=== PATIENT | male | born 1950 | race Caucasian/White ===

== ENCOUNTER 2017-02-15 12:37 | Emergency (ER) | payer MEDICARE, MEDICAID ==
[2017-02-15 15:18] VITALS: BP 167/84
--- NOTE | 2017-02-15 15:18 | ER Document Report ---
ED General - General Chief Complaint: Diarrhea Stated Complaint: COLD SYMPTOMS Time Seen by Provider: 02/15/17 15:10 Mode of Arrival: Ambulatory Information source: Patient Notes: 66-year-old male presents with complaints of left ear pain decreased hearing sore throat intermittent productive cough and diarrhea. Patient denies any fevers or chills admits to nausea vomiting. TRAVEL OUTSIDE OF THE [place] IN LAST 30 DAYS: No - HPI Onset: Other - 2-3 day duration Onset/Duration: Persistent Quality of pain: Achy Severity: Mild Pain Level: 1 Associated symptoms: Diarrhea, Earache Exacerbated by: Denies Relieved by: Denies Similar symptoms previously: No Recently seen / treated by doctor: No - Related Data Allergies/Adverse Reactions: No Known Allergies Allergy (Verified 02/15/17 12:39) Past Medical History - Social History Smoking Status: Current Every Day Smoker Cigarette use (# per day): Yes Chew tobacco use (# tins/day): No Smoking Education Provided: No Frequency of alcohol use: Occasional Drug Abuse: Marijuana Family History: Reviewed & Not Pertinent, Arthritis, DM, Hyperlipidemia Patient has suicidal ideation: No Patient has homicidal ideation: No - Past Medical History Cardiac Medical History: Reports: Hx Hypertension Pulmonary Medical History: Reports: Hx COPD, Hx Pneumonia Neurological Medical History: Reports: 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 Denies: Hx Pancreatitis Musculoskeltal Medical History: Reports Hx Arthritis, Reports Hx Musculoskeletal Deformity Psychiatric Medical History: Reports: Hx Depression Traumatic Medical History: Infectious Medical History: Past Surgical History: Reports: Hx Abdominal Surgery - Right hemicolectomy with ileostomy, Hx Bowel Surgery - hernia repair, Hx Colostomy - ileostomy from hernia around colon 1 yr ago, Hx Herniorrhaphy, Hx Ileostomy - Ileostomy was taken down in May 2012., Hx Orthopedic Surgery - Spinal fusion - Immunizations Immunizations up to date: Yes Hx Diphtheria, Pertussis, Tetanus Vaccination: Yes Hx Pneumococcal Vaccination: 11/11/12 Review of Systems - Review of Systems Notes: REVIEW OF SYSTEMS: CONSTITUTIONAL : Denies fever, chills, or sweats. Denies recent illness. EENT: Admits to left ear pain CARDIOVASCULAR: Denies chest pain. Denies palpitations or racing or irregular heart beat. Denies ankle edema. RESPIRATORY: Admits to cough productive GASTROINTESTINAL: Admits to nausea vomiting diarrhea GENITOURINARY: Denies difficulty urinating, painful urination, burning, frequency, blood in urine, or discharge. MUSCULOSKELETAL: Denies back or neck pain or stiffness. Denies joint pain or swelling. SKIN: Denies rash, lesions or sores. HEMATOLOGIC : Denies easy bruising or bleeding. LYMPHATIC: Denies swollen, enlarged glands. NEUROLOGICAL: Denies confusion or altered mental status. Denies passing out or loss of consciousness. Denies dizziness or lightheadedness. Denies headache. Denies weakness or paralysis or loss of use of either side. Denies problems with gait or speech. Denies sensory loss, numbness, or tingling. Denies seizures. PSYCHIATRIC: Denies anxiety or stress. Denies depression, suicidal ideation, or homicidal ideation. ALL OTHER SYSTEMS REVIEWED AND NEGATIVE. Dictation was performed using [employer] voice recognition software PHYSICAL EXAMINATION: GENERAL: Well-appearing, well-nourished and in no acute distress. HEAD: Atraumatic, normocephalic. EYES: Pupils equal round and reactive to light, extraocular movements intact, sclera anicteric, conjunctiva are normal. ENT: Right TM is well. Left TM is noted to be very erythematous there is loss of light reflex NECK: Normal range of motion, supple without lymphadenopathy LUNGS: Breath sounds clear to auscultation bilaterally and equal. No wheezes rales or rhonchi. HEART: Regular rate and rhythm without murmurs ABDOMEN: Soft, nontender, nondistended abdomen. No guarding, no rebound. No masses appreciated. Musculoskeletal: Normal range of motion, no pitting or edema. No cyanosis. NEUROLOGICAL: Cranial nerves grossly intact. Normal speech, normal gait. Normal sensory, motor exams PSYCH: Normal mood, normal affect. SKIN: Warm, Dry, normal turgor, no rashes or lesions noted. Physical Exam - Vital signs Vitals: Temp Pulse Resp BP Pulse Ox 98.1 F 102 H 20 147/86 H 99 02/15/17 12:46 02/15/17 12:46 02/15/17 12:46 02/15/17 12:46 02/15/17 12:46 Course - Re-evaluation Re-evalutation: 02/15/17 21:12 Patient's presentation is concerning for otitis media, I will treat him with azithromycin since he believes he has a productive cough as well, he overall actually looks quite well, patient will be given very strict return precautions and is otherwise stable for discharge. After performing a Medical Screening Examination, I estimate there is LOW risk for ACUTE CORONARY SYNDROME, PULMONARY EMBOLI, RESPIRATORY FAILURE, SEPSIS OR MENINGITIS, thus I consider the discharge disposition reasonable. I have reevaluated this patient multiple times and no significant life threatening changes are noted. The patient and I have discussed the diagnosis and risks, and we agree with discharging home with close follow-up. We also discussed returning to the Emergency Department immediately if new or worsening symptoms occur. We have discussed the symptoms which are most concerning (e.g., changing or worsening pain, trouble swallowing or breathing, neck stiffness, fever) that necessitate immediate return. - Vital Signs Vital signs: Temp Pulse Resp BP Pulse Ox 97.5 F 106 H 20 167/84 H 98 02/15/17 15:18 02/15/17 15:18 02/15/17 15:18 02/15/17 15:18 02/15/17 15:18 Discharge - Discharge Clinical Impression: Nausea & vomiting Qualifiers: Vomiting type: unspecified Vomiting Intractability: non-intractable Qualified Code(s): R11.2 - Nausea with vomiting, unspecified Otitis media Qualifiers: Otitis media type: unspecified Chronicity: acute Qualified Code(s): H66.90 - Otitis media, unspecified, unspecified ear Diarrhea Qualifiers: Diarrhea type: unspecified type Qualified Code(s): R19.7 - Diarrhea, unspecified Condition: Stable Disposition: HOME, SELF-CARE Instructions: Otitis Media ([facility]), Vomiting ([facility]) Additional Instructions: Follow up with your physician tomorrow for further care or return to the ED IMMEDIATELY if symptoms worsen or new concerns occur. If you cannot afford to follow up with your primary care physician a list of low cost clinics have been provided at the end of your discharge papers as well. Prescriptions: Azithromycin [Zithromax 250 mg Tablet] 250 mg PO ASDIR PRN #6 tablet PRN Reason:
== END 2017-02-15 15:22 | disposition home or self-care (01) ==
LOC: ER 12:37
DX: H66.90 Otitis media, unspecified, unspecified ear (principal); R11.2 Nausea with vomiting, unspecified; R19.7 Diarrhea, unspecified; H92.02 Otalgia, left ear; J02.9 Acute pharyngitis, unspecified; R05 Cough; F17.210 Nicotine dependence, cigarettes, uncomplicated
CPT/HCPCS: 99284

== ENCOUNTER 2017-02-27 19:38 | Inpatient (IN) | payer MEDICARE, MEDICAID ==
[2017-02-27] MEDS ORDERED: ONDANSETRON 4 MG TAB.RAPDIS PO ONE (21:06)
[2017-02-27] MEDS ORDERED: NORMAL SALINE 1000 ML 1,000 ML IV ONE (21:06)
--- NOTE | 2017-02-27 21:08 | ER Document Report ---
ED Medical Screen (RME) - General Chief Complaint: Nausea/Vomiting Stated Complaint: NAUSEA/VOMITING Time Seen by Provider: 02/27/17 21:06 Mode of Arrival: Wheelchair Information source: Patient Notes: Patient is a 66-year-old male who presents to the ER today for 2 days of nausea , vomiting, diarrhea and abdominal pain in the middle of his abdomen. Patient denies any fever, chills or sweats at home. Patient does not have a history of this. Patient denies any blood in his vomit or diarrhea. TRAVEL OUTSIDE OF THE [place] IN LAST 30 DAYS: No - Related Data Allergies/Adverse Reactions: No Known Allergies Allergy (Verified 02/27/17 20:52) Past Medical History - General Information source: Patient - Social History Chew tobacco use (# tins/day): No Frequency of alcohol use: Heavy Drug Abuse: None - Past Medical History Cardiac Medical History: Reports: Hx Hypertension Pulmonary Medical History: Reports: Hx COPD, Hx Pneumonia Neurological Medical History: Reports: Hx Cerebrovascular Accident - 2009 left arm hemiparesis Renal/ Medical History: Denies: Hx Peritoneal Dialysis Malignancy Medical History: GI Medical History: Reports: Hx Colonoscopy. Denies: Hx Pancreatitis Musculoskeltal Medical History: Reports Hx Arthritis, Reports Hx Musculoskeletal Deformity Psychiatric Medical History: Reports: Hx Depression Traumatic Medical History: Infectious Medical History: Past Surgical History: Reports: Hx Abdominal Surgery - Right hemicolectomy with ileostomy, Hx Bowel Surgery - hernia repair, Hx Colostomy - ileostomy from hernia around colon 1 yr ago, Hx Herniorrhaphy, Hx Ileostomy - Ileostomy was taken down in May 2012., Hx Orthopedic Surgery - Spinal fusion - Immunizations Immunizations up to date: Yes Hx Diphtheria, Pertussis, Tetanus Vaccination: Yes Review of Systems - Review of Systems Gastrointestinal: See HPI Physical Exam - Vital signs Vitals: Temp Pulse Resp BP Pulse Ox 98.7 F 92 20 187/86 H 98 02/27/17 19:45 02/27/17 19:45 02/27/17 19:45 02/27/17 19:45 02/27/17 19:45 - Notes Notes: General: NAD, holding emesis bag Abd: mild tenderness periumbilical Course - Vital Signs Vital signs: Temp Pulse Resp BP Pulse Ox 98.7 F 92 20 187/86 H 98 02/27/17 19:45 02/27/17 19:45 02/27/17 19:45 02/27/17 19:45 02/27/17 19:45
--- NOTE | 2017-02-27 22:44 | ER Document Report ---
ED GI/ - General Chief Complaint: Nausea/Vomiting Stated Complaint: NAUSEA/VOMITING Time Seen by Provider: 02/27/17 21:06 Mode of Arrival: Wheelchair TRAVEL OUTSIDE OF THE [place] IN LAST 30 DAYS: No - HPI Notes: 02/27/17 22:42 66-year-old male with history of alcohol abuse, hyponatremia, prior partial colectomy with colostomy and reversal with hernia repair, presents with vomiting and diarrhea for 2 days. Initially had nausea and diarrhea and developed some vomiting today. He has had a few episodes. The diarrhea has been more constant watery without blood or mucus. He has generalized abdominal cramping more in the mid abdominal region. It is nonradiating otherwise. Denies hematemesis. Denies fever. No new cough or cold symptoms rhinorrhea or sore throat. - Related Data Allergies/Adverse Reactions: No Known Allergies Allergy (Verified 02/27/17 20:52) Past Medical History - General Information source: Patient - Social History Smoking Status: Current Every Day Smoker Chew tobacco use (# tins/day): No Frequency of alcohol use: Heavy Drug Abuse: None Family History: Reviewed & Not Pertinent, Arthritis, DM, Hyperlipidemia Patient has suicidal ideation: No Patient has homicidal ideation: No - Past Medical History Cardiac Medical History: Reports: Hx Hypertension Pulmonary Medical History: Reports: Hx COPD, Hx Pneumonia Neurological Medical History: Reports: 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 Denies: Hx Pancreatitis Musculoskeltal Medical History: Reports Hx Arthritis, Reports Hx Musculoskeletal Deformity Psychiatric Medical History: Reports: Hx Depression Traumatic Medical History: Infectious Medical History: Past Surgical History: Reports: Hx Abdominal Surgery - Right hemicolectomy with ileostomy, Hx Bowel Surgery - hernia repair, Hx Colostomy - ileostomy from hernia around colon 1 yr ago, Hx Herniorrhaphy, Hx Ileostomy - Ileostomy was taken down in May 2012., Hx Orthopedic Surgery - Spinal fusion - Immunizations Immunizations up to date: Yes Hx Diphtheria, Pertussis, Tetanus Vaccination: Yes Hx Pneumococcal Vaccination: 11/11/12 Review of Systems - Review of Systems -: Yes All other systems reviewed and negative Physical Exam - Vital signs Vitals: Temp Pulse Resp BP Pulse Ox 98.7 F 92 20 187/86 H 98 02/27/17 19:45 02/27/17 19:45 02/27/17 19:45 02/27/17 19:45 02/27/17 19:45 Interpretation: Hypertensive - Notes Notes: GENERAL: VS as per nursing doc. Well-appearing, well-nourished and in no acute distress. HEAD: Atraumatic, normocephalic. EYES: Pupils equal round and reactive to light, extraocular movements intact, sclera anicteric, no conjunctival injection or discharge. ENT: Nares patent, oropharynx clear without exudates, moist mucous membranes. NECK: Normal range of motion, supple without lymphadenopathy. LUNGS: Breath sounds clear to auscultation bilaterally and equal but coarse. No wheezes rales or rhonchi. HEART: Regular rate and rhythm without murmurs. ABDOMEN: Soft, mild generalized abdominal tenderness, really not focal. Hyperactive bowel sounds. No guarding, no rebound. No masses appreciated. No Otwell sign. BACK: No CVA tenderness. EXTREMITIES: Normal range of motion, no calf tenderness, no edema. NEUROLOGICAL: Cranial nerves grossly intact. Normal speech. Normal sensory and motor exams. No gross cerebellar abnormalities. PSYCH: Normal mood, normal affect. SKIN: Warm, dry, normal turgor, no lesions noted. Course - Re-evaluation Re-evalutation: 02/28/17 00:16 Patient does have a history of hyponatremia. The sodium of 116 today is much decreased compared to August where it was 131. He does drink significant amounts of beer. 02/28/17 00:43 Nausea is better. Patient is awaiting CT scan. 02/28/17 04:36 After normal saline 1 L, there was no increase in his sodium level. Dr. Cheung requested 3% normal saline. - Vital Signs Vital signs: Temp Pulse Resp BP Pulse Ox 98.7 F 92 11 L 138/87 H 97 02/27/17 19:45 02/27/17 19:45 02/28/17 04:00 02/28/17 03:56 02/28/17 04:00 - Laboratory Result Diagrams: 02/28/17 03:50 02/28/17 03:50 Laboratory results interpreted by me: 02/27/17 02/27/17 02/27/17 22:50 22:50 22:50 WBC 13.3 H RBC 4.21 L Hgb 13.4 L Plt Count 530 H Monocytes % 14.8 H Eosinophils % 8.0 H Basophils % 2.4 H Absolute Monocytes 2.0 H Absolute Eosinophils 1.1 H Absolute Basophils 0.3 H Sodium 116.7 L* Chloride 77 L BUN 5 L Serum Osmolality 239 L AST 116 H ALT 87 H Alkaline Phosphatase 141 H Total Protein 9.5 H Albumin 5.3 H Urine Ketones 02/27/17 23:12 WBC RBC Hgb Plt Count Monocytes % Eosinophils % Basophils % Absolute Monocytes Absolute Eosinophils Absolute Basophils Sodium Chloride BUN Serum Osmolality AST ALT Alkaline Phosphatase Total Protein Albumin Urine Ketones 20 H - Consults Dr. Cheung Time consulted: 00:44 - Admission pending CT Consulted provider: will come to ER Discharge - Discharge Clinical Impression: Hyponatremia, Abdominal pain, Vomiting Condition: Fair Disposition: ADMITTED INPATIENT Admitting Provider: Dr. Cheung Unit Admitted: ICU
[2017-02-27 23:13] LABS: ABSOLUTE BASOPHILS # (AUTO) 0.3 10^3/uL (0.0-0.2); ABSOLUTE EOSINOPHILS # (AUTO) 1.1 10^3/uL (0.0-0.6); ABSOLUTE LYMPHOCYTES (AUTO) 3.2 10^3/uL (0.5-4.7); ABSOLUTE NEUT (AUTO) 6.8 10^3/uL (1.7-8.2); BASOPHILS % (AUTO) 2.4 % (0-2); HEMOGLOBIN 13.4 g/dL (13.5-17.0); LYMPHOCYTES % (AUTO) 23.9 % (13-45); MEAN CORPUSCULAR HEMOGLOBIN 31.9 pg (27.0-33.4); MEAN CORPUSCULAR HGB CONC 34.4 g/dL (32.0-36.0); MEAN CORPUSCULAR VOLUME 93 fl (80-97); MONOCYTES % (AUTO) 14.8 % (3-13); PLATELET COUNT 530 10^3/uL (150-450); RED BLOOD COUNT 4.21 10^6/uL (4.35-5.55); RED CELL DISTRIBUTION WIDTH 13.1 % (11.5-14.0); SEGMENTED NEUTROPHILS % (AUTO) 50.9 % (42-78); TOTAL CELLS COUNTED % (AUTO) 100 %; WHITE BLOOD COUNT 13.3 10^3/uL (4.0-10.5)
[2017-02-27 23:22] LABS: ALANINE AMINOTRANSFERASE 87 U/L (21-72); ALBUMIN 5.3 g/dL (3.5-5.0); ALKALINE PHOSPHATASE 141 U/L (38-126); ANION GAP 14 (5-19); ASPARTATE AMINO TRANSFERASE 116 U/L (17-59); BILIRUBIN,DIRECT 0.4 mg/dL (0.0-0.4); BILIRUBIN,TOTAL 0.8 mg/dL (0.2-1.3); BLOOD UREA NITROGEN 5 mg/dL (7-20); CALCIUM 10.2 mg/dL (8.4-10.2); CARBON DIOXIDE 26 mmol/L (22-30); CHLORIDE 77 mmol/L (98-107); GLUCOSE 80 mg/dL (75-110); LIPASE 143.9 U/L (23-300); POTASSIUM 4.8 mmol/L (3.6-5.0); TOTAL PROTEIN 9.5 g/dL (6.3-8.2)
[2017-02-27] MEDS ORDERED: ONDANSETRON HCL INJ/PF 4 MG/2 ML SDV IV ONE (23:22)
[2017-02-27] MEDS ORDERED: HYDROMORPHONE HCL INJ/PF 2 MG/ML AMPULE IV ONE (23:22)
[2017-02-27 23:25] LABS: SODIUM 116.7 mmol/L (137-145)
[2017-02-27 23:44] LABS: APPEARANCE,URINE SLIGHTLY-CLOUDY; BILIRUBIN,URINE NEGATIVE (NEGATIVE); COLOR,URINE YELLOW; GLUCOSE, URINE NEGATIVE (NEGATIVE); KETONES,URINE 20 mg/dL (NEGATIVE); LEUKOCYTE ESTERASE,URINE NEGATIVE (NEGATIVE); NITRITE,URINE NEGATIVE (NEGATIVE); PROTEIN,URINE NEGATIVE (NEGATIVE); URINE SPECIFIC GRAVITY 1.018; UROBILINOGEN,URINE NEGATIVE mg/dL (<2.0)
[2017-02-27] MEDS ORDERED: SUCCINYLCHOLINE CHLORIDE INJ 200 MG/10 ML VIAL ONE (23:59)
[2017-02-28] MEDS ORDERED: NORMAL SALINE 1000 ML 1,000 ML IV ONE (00:19)
--- NOTE | 2017-02-28 02:21 | RADIOLOGY REPORT (SQ) ---
EXAM DESCRIPTION: CT ABD/PELVIS WITH IV ORAL CLINICAL HISTORY: 66 years Male, Abdominal pain, vomiting and diarrhea COMPARISON: August 05, 2015 TECHNIQUE: No contrast. Coronal and sagittal reformat. This exam was performed according to our departmental dose-optimization program, which includes automated exposure control, adjustment of the mA and/or kV according to patient size and/or use of iterative reconstruction technique. Limitation: Arm positioning. FINDINGS: Mild mesenteric and retroperitoneal lymphadenopathy without suspicious interval change. 4.6 cm diameter prostate. Moderate diffuse rectal and distal sigmoid bowel wall thickening and mild/moderate bowel wall thickening involving a 5 cm segment of the proximal sigmoid., stable. Mild hepatic steatosis. Small colonic diverticulosis. Moderate distended nonopacified distal esophagus and stomach. Moderate disc desiccation Inferior thorax, gallbladder, pancreas, spleen, adrenals, renal system, gastrointestinal tract, pelvic organs, lymphatics, vasculature, and musculoskeleton appear otherwise unremarkable. IMPRESSION: Discontinuous colonic bowel wall thickening and mild-moderate mesenteric/retroperitoneal lymphadenopathy. Differential diagnosis includes infectious, inflammatory, and neoplastic etiologies. No suspicious interval change compared with prior exam, 08/05/2015.
[2017-02-28] MEDS ORDERED: FUROSEMIDE INJ/PF 40 MG/4 ML SDV IV ONE (02:41)
[2017-02-28] MEDS ORDERED: ONDANSETRON HCL INJ/PF 4 MG/2 ML SDV IV PRN (02:42)
[2017-02-28] MEDS ORDERED: THIAMINE HCL 100 MG, FOLIC ACID 1 MG in NORMAL SALINE 250 ML IV ONE (03:00)
[2017-02-28] MEDS ORDERED: MORPHINE SULFATE 10 MG/ML INJ IV ONE (03:45)
[2017-02-28 04:07] LABS: ABSOLUTE BASOPHILS # (AUTO) 0.1 10^3/uL (0.0-0.2); ABSOLUTE EOSINOPHILS # (AUTO) 0.9 10^3/uL (0.0-0.6); ABSOLUTE LYMPHOCYTES (AUTO) 2.7 10^3/uL (0.5-4.7); ABSOLUTE MONOCYTES (AUTO) 1.8 10^3/uL (0.1-1.4); ABSOLUTE NEUT (AUTO) 5.1 10^3/uL (1.7-8.2); BASOPHILS % (AUTO) 1.2 % (0-2); EOSINOPHILS % (AUTO) 8.4 % (0-6); HEMATOCRIT 34.2 % (37.9-51.0); LYMPHOCYTES % (AUTO) 25.1 % (13-45); MEAN CORPUSCULAR HEMOGLOBIN 32.4 pg (27.0-33.4); MEAN CORPUSCULAR VOLUME 93 fl (80-97); MONOCYTES % (AUTO) 17.1 % (3-13); PLATELET COUNT 463 10^3/uL (150-450); RED BLOOD COUNT 3.69 10^6/uL (4.35-5.55); RED CELL DISTRIBUTION WIDTH 13.1 % (11.5-14.0); SEGMENTED NEUTROPHILS % (AUTO) 48.2 % (42-78); TOTAL CELLS COUNTED % (AUTO) 100 %; WHITE BLOOD COUNT 10.5 10^3/uL (4.0-10.5)
[2017-02-28 04:16] LABS: BLOOD UREA NITROGEN 6 mg/dL (7-20); CALCIUM 9.1 mg/dL (8.4-10.2); CARBON DIOXIDE 24 mmol/L (22-30); CHLORIDE 81 mmol/L (98-107); GLUCOSE 76 mg/dL (75-110); POTASSIUM 4.3 mmol/L (3.6-5.0)
[2017-02-28 04:18] LABS: ANION GAP 11 (5-19)
[2017-02-28 04:20] LABS: SODIUM 115.7 mmol/L (137-145)
[2017-02-28] MEDS ORDERED: SODIUM CHLORIDE 3% 150 ML IV ONE (04:35)
[2017-02-28] MEDS ORDERED: FOLIC ACID INJ 5 MG/1 ML 10 ML VIAL ONE (04:47)
[2017-02-28] MEDS ORDERED: THIAMINE HCL INJ 200 MG/2 ML VIAL ONE (04:48)
[2017-02-28] MEDS ORDERED: SODIUM CHLORIDE 3% 500 ML IV ONE (05:06)
[2017-02-28] MEDS: HEPARIN SOD (PORCINE) 5,000 UNIT/ML 1 ML SYRINGE SUBCUT SCH ×3 (05:18→21:25)
[2017-02-28] MEDS ORDERED: METOCLOPRAMIDE HCL ORAL SOLN 10 MG/10 ML UDCUP PO ONE (05:54)
[2017-02-28] MEDS ORDERED: MAG HYDROX/AL HYDROX/SIMETH SUSP 30 ML UDCUP PO ONE (05:54)
[2017-02-28] MEDS ORDERED: LIDOCAINE 2% VISCOUS SOLN 20 ML UDCUP PO ONE (05:54)
[2017-02-28] MEDS ORDERED: PANTOPRAZOLE SODIUM 80 MG in NORMAL SALINE 100 ML IV ONE (06:27)
[2017-02-28] MEDS: NORMAL SALINE 100 ML with PANTOPRAZOLE SODIUM 80 MG IV PRN ×4 (06:30→21:24)
[2017-02-28] MEDS ORDERED: PHARMACY COMMUNICATION ORDER MC NR ×2 (06:30)
[2017-02-28] MEDS ORDERED: NORMAL SALINE 250 ML IV PRN ×2 (06:37)
--- NOTE | 2017-02-28 06:56 | PDOC H&P ---
History of Present Illness Admission Date/PCP: 02/28/17 02:44 Patient complains of: Falls, nausea and vomiting History of Present Illness: YAMILET MEDINA is a 66 year old male with a past medical history of Wernicke's encephalopathy, ataxia, recurrent hyponatremia with beer potomania and COPD. He presents to the emergency room with abdominal pain nausea and vomiting. Workup reveals CT abdomen pelvis with colonic thickening and scattered adenopathy and a Sodium of 116. In the emergency room he receives normal saline bolus and referred to the hospitalist for admission to ICU. He is ordered IV 3% saline and Protonix. During interview patient complains of abdominal pain with distention followed by a large bloody emesis followed by severe wheeze and respiratory distress. Patient verifies full CODE STATUS. Nurse automotive center manager, gastroenterology and surgery are consulted for intubation, endoscopy and IV access. Past Medical History Cardiac Medical History: Reports: Hypertension Pulmonary Medical History: Reports: Chronic Obstructive Pulmonary Disease (COPD) , Pneumonia Malignancy Medical History: GI Medical History: Musculoskeltal Medical History: Reports: Arthritis Psychiatric Medical History: Reports: Depression Hematology: Reports: Anemia Denies: Hemophilia, Sickle Cell Disease Infectious Medical History: Past Surgical History Past Surgical History: Reports: Colostomy - ileostomy from hernia around colon 1 yr ago, Herniorrhaphy, Ileostomy - Ileostomy was taken down in May 2012., Orthopedic Surgery - Spinal fusion Social History Information Source: Patient, [facility] Records Lives with: Family Smoking Status: Current Every Day Smoker Frequency of Alcohol Use: Heavy Hx Recreational Drug Use: No Drugs: None Hx Prescription Drug Abuse: No - Advance Directive Resuscitation Status: Full Code Family History Family History: Reviewed & Not Pertinent, Arthritis, DM, Hyperlipidemia Parental Family History Reviewed: Yes Children Family History Reviewed: Yes Sibling(s) Family History Reviewed.: Yes Medication/Allergy Home Medications: Fluticasone/Salmeterol [Advair 250-50 Diskus 28 dose] 2 inhaler IN BID 08/06/15 Lisinopril 10 mg PO DAILY 08/17/15 Acetaminophen [Tylenol 325 mg Tablet] 325 mg PO Q4HP PRN tablet 08/25/15 Albuterol Sulfate [Ventolin 0.083% Neb 2.5 mg/3 mL Ampul] 2.5 mg NEB RTQ2HP PRN vial.neb 08/25/15 Aspirin [Aspirin 325 mg Tablet] 325 mg PO DAILY tablet 08/25/15 Carvedilol [Coreg 3.125 mg Tablet] 3.125 mg PO Q12 tablet 08/25/15 Diazepam [Valium 5 mg Tablet] 5 mg PO Q12 PRN #15 tablet 08/25/15 Digoxin [Lanoxin 0.25 mg Tablet] 0.25 mg PO DAILY tablet 08/25/15 Docusate Sodium [Colace 100 mg Capsule] 100 mg PO BID capsule 08/25/15 Famotidine [Pepcid 20 mg Tablet] 20 mg PO Q12 tablet 08/25/15 Folic Acid [Folvite 1 mg Tablet] 1 mg PO DAILY tablet 08/25/15 Furosemide [Lasix 20 mg Tablet] 20 mg PO DAILY tablet 08/25/15 Magnesium Oxide [Mag-Ox 400 mg Tablet] 400 mg PO BID tablet 08/25/15 Metformin HCl [Glucophage 500 mg Tablet] 500 mg PO BIDACBS tablet 08/25/15 Prednisone [Deltasone 20 mg Tablet] 40 mg PO DAILY tablet 08/25/15 Thiamine HCl [Thiamine 100 mg Tablet] 100 mg PO DAILY tablet 08/25/15 Azithromycin [Zithromax 250 mg Tablet] 250 mg PO ASDIR PRN #6 tablet 02/15/17 Allergies/Adverse Reactions: No Known Allergies Allergy (Verified 02/27/17 20:52) Review of Systems ROS unobtainable: Due to mental status Physical Exam Vital Signs: Temp Pulse Resp BP Pulse Ox 98.7 F 92 19 123/81 95 02/28/17 05:02 02/27/17 19:45 02/28/17 05:02 02/28/17 05:02 02/28/17 05:02 Intake & Output 02/26/17 02/27/17 02/28/17 11:59 11:59 11:59 Weight 74.389 kg General appearance: PRESENT: disheveled, severe distress Head exam: PRESENT: atraumatic, normocephalic, other - Several lacerations to the scalp without evidence of infection or exudate Eye exam: PRESENT: conjunctiva pink, EOMI, PERRLA. ABSENT: scleral icterus Ear exam: PRESENT: normal external ear exam Mouth exam: PRESENT: moist, tongue midline Neck exam: ABSENT: carotid bruit, JVD, lymphadenopathy, thyromegaly Respiratory exam: PRESENT: accessory muscle use, crackles, prolonged expiratory phas, retraction, wheezes Cardiovascular exam: PRESENT: RRR. ABSENT: diastolic murmur, rubs, systolic murmur Pulses: PRESENT: normal dorsalis pedis pul GI/Abdominal exam: PRESENT: distended, hyperactive bowel sounds, soft, tenderness Rectal exam: PRESENT: deferred Extremities exam: PRESENT: full ROM. ABSENT: calf tenderness, clubbing, pedal edema Musculoskeletal exam: PRESENT: other - Scattered ecchymosis and abrasions on all 4 extremities Neurological exam: PRESENT: alert, awake, CN II-XII grossly intact Psychiatric exam: PRESENT: anxious Skin exam: PRESENT: abrasion - Scattered abrasions throughout Results Laboratory Results: 02/28/17 03:50 02/28/17 03:50 02/28/17 02/28/17 03:50 03:50 WBC 10.5 RBC 3.69 L Hgb 12.0 L Hct 34.2 L MCV 93 MCH 32.4 MCHC 35.0 RDW 13.1 Plt Count 463 H Seg Neutrophils % 48.2 Lymphocytes % 25.1 Monocytes % 17.1 H Eosinophils % 8.4 H Basophils % 1.2 Absolute Neutrophils 5.1 Absolute Lymphocytes 2.7 Absolute Monocytes 1.8 H Absolute Eosinophils 0.9 H Absolute Basophils 0.1 Sodium 115.7 L* Potassium 4.3 Chloride 81 L Carbon Dioxide 24 Anion Gap 11 BUN 6 L Creatinine 0.64 Est GFR ( Amer) > 60 Est GFR (Non-Af Amer) > 60 Glucose 76 Calcium 9.1 Impressions: Abdomen/Pelvis CT 02/28/17 00:00 IMPRESSION: Discontinuous colonic bowel wall thickening and mild-moderate mesenteric/retroperitoneal lymphadenopathy. Differential diagnosis includes infectious, inflammatory, and neoplastic etiologies. No suspicious interval change compared with prior exam, 08/05/2015. Assessment & Plan - Diagnosis (1) Hyponatremia Is this a current diagnosis for this admission?: Yes Plan: Secondary to excessive beer intake and polydipsia. Fluid restriction 3% saline follow-up chemistry every 6 hours (2) Upper GI bleed Is this a current diagnosis for this admission?: Yes Plan: Esophageal varices versus alcoholic gastritis. Large quantity blood emesis. IV Protonix and Sandostatin ordered. Avoid NG tube. Typed and screened for 2 units of packed red blood cells and gastroenterology consulted (3) Anemia associated with acute blood loss Is this a current diagnosis for this admission?: Yes Plan: Evaluate for coagulopathy given alcoholism, empiric vitamin K. 2 units of packed red blood cells ordered and GI consult (4) Respiratory distress Is this a current diagnosis for this admission?: Yes Plan: Secondary to aspiration and comp gated by COPD. Will intubate for airway protection. (5) Abdominal pain Is this a current diagnosis for this admission?: Yes Plan: Secondary to GI bleeds and medical management. (6) Vomiting Is this a current diagnosis for this admission?: Yes Plan: Secondary to hyponatremia versus alcoholic gastritis. Symptomatic management, see above for hyponatremia and GI bleed. (7) Alcohol abuse Is this a current diagnosis for this admission?: Yes Plan: Thiamine, folate and Ativan as needed (8) COPD exacerbation Is this a current diagnosis for this admission?: Yes Plan: Albuterol and Atrovent follow-up ABG at 8 AM, pulmonology consult. - Time Time Spent: Greater than 70 Minutes - Inpatient Certification Medical Necessity: Need Close Monitoring Due to Risk of Patient Decompensation
[2017-02-28] MEDS ORDERED: MIDAZOLAM 2 MG/2 ML INJ ONE (07:08)
--- NOTE | 2017-02-28 07:11 | RADIOLOGY REPORT (SQ) ---
EXAM DESCRIPTION: CHEST SINGLE VIEW CLINICAL HISTORY: 66 years, Male, pre intubation COMPARISON: August 22, 2015 NUMBER OF VIEWS: One LIMITATIONS: None. FINDINGS: Normal lung volume, clear parenchyma, normal cardiac silhouette, stable right posterior seventh rib defect, and mild osteoarthritis. IMPRESSION: No acute cardiopulmonary findings. 2011 [employer]- All Rights Reserved
--- NOTE | 2017-02-28 07:23 | RADIOLOGY REPORT (SQ) ---
EXAM DESCRIPTION: KUB/ABDOMEN (SINGLE VIEW) CLINICAL HISTORY: 66 years, Male, abd pain COMPARISON: CT abdomen pelvis, same day. NUMBER OF VIEWS:1 LIMITATIONS: None. FINDINGS: Paucity of bowel gas. No dilated bowel. Retained contrast in the sigmoid, cecum, and stomach. Atherosclerosis. Moderate disc desiccation and mild osteoarthritis. IMPRESSION: No acute findings. 2011 [employer]- All Rights Reserved
[2017-02-28] MEDS ORDERED: PROPOFOL INJ 200 MG/20 ML VIAL IV ONE (07:25)
[2017-02-28] MEDS: PROPOFOL 100 ML IV PRN ×5 (07:25→21:24)
[2017-02-28] MEDS: IPRATROPIUM/ALBUTEROL 0.5-2.5 MG/3 ML AMPUL NEB SCH ×2 (07:40→16:18)
--- NOTE | 2017-02-28 07:55 | RADIOLOGY REPORT (SQ) ---
EXAM DESCRIPTION: ACUTE ABDOMEN SERIES COMPLETED DATE/TIME: 02/27/2017 10:32 pm REASON FOR STUDY: abd pain, n/v/d COMPARISON: CT abdomen pelvis 08/05/2015 Chest film 08/22/2015 NUMBER OF VIEWS: Three views. TECHNIQUE: Frontal chest, supine abdomen and upright abdomen radiographic images acquired. LIMITATIONS: None. FINDINGS: CHEST: No acute infiltrates. No pleural effusion. Cardiac silhouette size, gregorio unremark able. Multiple old healed bilateral rib fractures. FREE AIR: None. No abnormal gas collections. BOWEL GAS PATTERN: Nonobstructive pattern. No dilated loops or air fluid levels. CALCIFICATIONS: No suspicious calcifications. HARDWARE: None in the abdomen. SOFT TISSUES: No gross mass or suggestion of organomegaly. BONES: No acute fracture. No worrisome bone lesions. OTHER: No other significant finding. IMPRESSION: NO RADIOGRAPHIC EVIDENCE FOR ACUTE ABDOMINAL DISEASE. TECHNICAL DOCUMENTATION: JOB ID: [id number] [employer]- All Rights Reserved
--- NOTE | 2017-02-28 08:31 | Operative Report ---
Operative Report DATE OF SURGERY: 02/28/17 PREOPERATIVE DIAGNOSIS: Respiratory failure, hypotension, critical need for central venous access POSTOPERATIVE DIAGNOSIS: Respiratory failure, hypotension, critical need for central venous access OPERATION: Right subclavian triple-lumen central venous catheter placement SURGEON: DERRICK FERNANDO ANESTHESIA: Local TISSUE REMOVED OR ALTERED: None COMPLICATIONS: None ESTIMATED BLOOD LOSS: Minimal INTRAOPERATIVE FINDINGS: None PROCEDURE: No family member immediately available in patient with hypotension and respiratory failure. Hospitalist requested central line placement. He feels that it is a critically needed procedure. Patient's right neck and chest were prepped and draped in usual sterile fashion. Local anesthetic was administered. The right subclavian vein was entered without difficulty. Triple -lumen central venous catheter was placed via the Seldinger technique. It withdrew blood and flushed easily. It was sutured in place and dressings applied. No apparent complications. Stat portable chest x-ray was ordered.
[2017-02-28] MEDS ORDERED: PANTOPRAZOLE SODIUM 40 MG VIAL IV ONE (08:36)
[2017-02-28] MEDS ORDERED: NOREPINEPHRINE BITARTRATE INJ/PF 4 MG/4 ML SDV IV ONE (08:50)
[2017-02-28] MEDS ORDERED: DEXTROSE 5%-WATER 250 ML with NOREPINEPHRINE BITARTRATE 4 MG IV PRN ×2 (08:51)
--- NOTE | 2017-02-28 08:52 | RADIOLOGY REPORT (SQ) ---
EXAM DESCRIPTION: CHEST SINGLE VIEW COMPLETED DATE/TIME: 02/28/2017 8:32 am REASON FOR STUDY: post central line placement COMPARISON: 02/28/2017 NUMBER OF VIEWS: One view. TECHNIQUE: Single frontal radiographic image of the chest acquired. LIMITATIONS: None. FINDINGS: LUNGS AND PLEURA: Stable appearance. A right-sided subclavian central line is in place. Catheter tip overlies the SVC right atrial junction. No pneumothorax on the current film. MEDIASTINUM AND HILAR STRUCTURES: Stable heart size and mediastinal structures. HEART AND VASCULAR STRUCTURES: Stable appearance. SUPPORT DEVICES: Appropriate location without change. BONES: No acute findings. OTHER: No other significant finding. IMPRESSION: Central line has been placed. No other interval change. No pneumothorax. TECHNICAL DOCUMENTATION: JOB ID: [id number] [employer]- All Rights Reserved
--- NOTE | 2017-02-28 09:00 | RADIOLOGY REPORT (SQ) ---
EXAM DESCRIPTION: CHEST SINGLE VIEW COMPLETED DATE/TIME: 02/28/2017 7:58 am REASON FOR STUDY: ng placement and intubation COMPARISON: AP chest 02/28/2017, 02/27/2017, 08/22/2015 EXAM PARAMETERS: NUMBER OF VIEWS: One view. TECHNIQUE: Single frontal radiographic view of the chest acquired. RADIATION DOSE: NA LIMITATIONS: None. FINDINGS: LUNGS AND PLEURA: No opacities, masses or pneumothorax. No pleural effusion. MEDIASTINUM AND HILAR STRUCTURES: No masses. Contour normal. HEART AND VASCULAR STRUCTURES: Heart normal in size. Normal vasculature. BONES: Old left lateral rib fractures. HARDWARE: Endotracheal tube tip 4 cm above the serina. Nasogastric tube tip and side port in the sto mach OTHER: No other significant finding. IMPRESSION: NO ACUTE RADIOGRAPHIC FINDING IN THE CHEST. TECHNICAL DOCUMENTATION: JOB ID: [id number] [employer]- All Rights Reserved
[2017-02-28] MEDS ORDERED: THIAMINE HCL 100 MG, FOLIC ACID 1 MG in NORMAL SALINE 250 ML IV SCH (10:00)
[2017-02-28] MEDS ORDERED: PROPOFOL 100 ML IV ONE (10:29)
[2017-02-28] MEDS: CARVEDILOL 3.125 MG TABLET NG SCH ×2 (10:42→21:27)
[2017-02-28] MEDS: MAGNESIUM OXIDE 400 MG TABLET NG SCH ×2 (10:42→17:01)
[2017-02-28] MEDS: ASPIRIN 325 MG TABLET NG SCH (10:42)
[2017-02-28] MEDS: NORMAL SALINE 500 ML with OCTREOTIDE ACETATE 500 MCG IV PRN ×4 (10:48→21:25)
[2017-02-28 11:35] LABS: INTERNATIONAL RATION (INR) 1.11; PROTHROMBIN TIME 15.1 SEC (11.4-15.4)
[2017-02-28 11:36] LABS: PARTIAL THROMBOPLASTIN TIME 39.1 SEC (23.5-35.8)
--- NOTE | 2017-02-28 11:44 | PDOC PROGRESS REPORT ---
Subjective Progress Note for:: 02/28/17 Subjective:: Intubated and sedated at the time of my exam Reason For Visit: HYPONATREMIA, NAUSEA C VOMITING Physical Exam Vital Signs: Temp Pulse Resp BP Pulse Ox 97.2 F 92 16 81/63 L 98 02/28/17 07:57 02/27/17 19:45 02/28/17 07:57 02/28/17 07:57 02/28/17 07:57 Intake & Output 02/27/17 02/28/17 03/01/17 06:59 06:59 06:59 Weight 74.389 kg Head exam: PRESENT: atraumatic, normocephalic Eye exam: PRESENT: conjunctiva pink. ABSENT: scleral icterus Mouth exam: PRESENT: other - ET tube in place Neck exam: ABSENT: JVD Respiratory exam: PRESENT: clear to auscultation temo. ABSENT: rales, rhonchi, wheezes Cardiovascular exam: PRESENT: RRR, tachycardia. ABSENT: diastolic murmur, rubs , systolic murmur GI/Abdominal exam: PRESENT: normal bowel sounds, soft. ABSENT: distended, guarding, mass, organolmegaly, rebound, tenderness Extremities exam: ABSENT: calf tenderness, clubbing, pedal edema Neurological exam: PRESENT: other - Intubated and sedated at the time of my exam Psychiatric exam: PRESENT: other - Unable to assess secondary to intubation. Skin exam: PRESENT: dry, intact, warm. ABSENT: cyanosis, rash Results Laboratory Results: 02/28/17 03:50 02/28/17 02/28/17 02/28/17 03:50 03:50 06:50 WBC 10.5 RBC 3.69 L Hgb 12.0 L Hct 34.2 L MCV 93 MCH 32.4 MCHC 35.0 RDW 13.1 Plt Count 463 H Seg Neutrophils % 48.2 Lymphocytes % 25.1 Monocytes % 17.1 H Eosinophils % 8.4 H Basophils % 1.2 Absolute Neutrophils 5.1 Absolute Lymphocytes 2.7 Absolute Monocytes 1.8 H Absolute Eosinophils 0.9 H Absolute Basophils 0.1 Sodium 115.7 L* Potassium 4.3 Chloride 81 L Carbon Dioxide 24 Anion Gap 11 BUN 6 L Creatinine 0.64 Est GFR ( Amer) > 60 Est GFR (Non-Af Amer) > 60 Glucose 76 Calcium 9.1 Blood Type A POSITIVE Antibody Screen NEGATIVE Impressions: Acute Abdomen Series 02/27/17 21:06 IMPRESSION: NO RADIOGRAPHIC EVIDENCE FOR ACUTE ABDOMINAL DISEASE. Abdomen/Pelvis CT 02/28/17 00:00 IMPRESSION: Discontinuous colonic bowel wall thickening and mild-moderate mesenteric/retroperitoneal lymphadenopathy. Differential diagnosis includes infectious, inflammatory, and neoplastic etiologies. No suspicious interval change compared with prior exam, 08/05/2015. Chest X-Ray 02/28/17 00:00 IMPRESSION: NO ACUTE RADIOGRAPHIC FINDING IN THE CHEST. KUB X-Ray 02/28/17 06:32 IMPRESSION: No acute findings. 2010 [employer]- All Rights Reserved Assessment & Plan - Diagnosis (1) Respiratory distress Is this a current diagnosis for this admission?: Yes Plan: The patient was intubated for respiratory distress and airway protection. Pulmonary medicine has been consulted. (2) Upper GI bleed Is this a current diagnosis for this admission?: Yes Plan: GI will perform an EGD later today. We will go ahead and transfuse 2 units packed red blood cells. Continue with the octreotide. Presumed that he has variceal bleeding given his history of alcohol use however the possibility this is just a peptic ulcer is considered. (3) Anemia associated with acute blood loss Is this a current diagnosis for this admission?: Yes Plan: Patient is being transfused 2 units packed red blood cells. (4) Hyponatremia Is this a current diagnosis for this admission?: Yes Plan: He received hypertonic saline. The patient's blood pressure has been low and has been given boluses of normal saline. We will continue to monitor closely. (5) Alcohol abuse Is this a current diagnosis for this admission?: Yes Plan: We will give Ativan as needed. (6) Hypertension Is this a current diagnosis for this admission?: Yes Plan: Blood pressures have been low and he is currently on levophed - Time Time Spent with patient: 35 or more minutes - Inpatient Certification Medical Necessity: Need Close Monitoring Due to Risk of Patient Decompensation, Need For IV Fluids
[2017-02-28] MEDS ORDERED: NORMAL SALINE 1000 ML 1,000 ML IV PRN (11:46)
[2017-02-28 11:51] LABS: ANION GAP 11 (5-19); BLOOD UREA NITROGEN 5 mg/dL (7-20); CALCIUM 7.9 mg/dL (8.4-10.2); CARBON DIOXIDE 20 mmol/L (22-30); CHLORIDE 95 mmol/L (98-107); GLUCOSE 68 mg/dL (75-110); POTASSIUM 3.8 mmol/L (3.6-5.0); SODIUM 125.8 mmol/L (137-145)
[2017-02-28] MEDS ORDERED: EPINEPHRINE INJ 1 MG/10 ML DISP.SYRIN ONE (12:39)
--- NOTE | 2017-02-28 12:41 | PDOC CONSULTATION ---
Consultation Consult Date: 02/27/17 Attending physician:: PEDRO ASHTON Consult reason:: GI bleeding History of Present Illness Admission Date/PCP: 02/28/17 02:44 History of Present Illness: was asked to see patient by Dr Cheung overnight patient had colon surgery several years ago done by surgery presented to the ED with mental status changes was noted to be profoundly hyponatremic does have a history of ETOH use patient had emesis, noted to have blood admitted to the ICU recommended to be placed on Sandostatin and PPI drip once stabalized, an undergo EGD to rule out source of GI bleeding could be due to varices vs peptic ulcer disease has history of encephalopathy, due to alcohol positive abdominal distension, nausea and vomiting patient has been intubated for airway protection EGD is deemed an emergency and so will get hopitalist to sign off on that as well CT scan shows some bowel thickening but no acute obstruction is noted Past Medical History Cardiac Medical History: Reports: Hypertension Pulmonary Medical History: Reports: Chronic Obstructive Pulmonary Disease (COPD) , Pneumonia Malignancy Medical History: GI Medical History: Musculoskeltal Medical History: Reports: Arthritis Psychiatric Medical History: Reports: Depression Hematology: Reports: Anemia Denies: Hemophilia, Sickle Cell Disease Infectious Medical History: Past Surgical History Past Surgical History: Reports: Colostomy - ileostomy from hernia around colon 1 yr ago, Herniorrhaphy, Ileostomy - Ileostomy was taken down in May 2012., Orthopedic Surgery - Spinal fusion Social History Lives with: Family Smoking Status: Current Every Day Smoker Frequency of Alcohol Use: Heavy Hx Recreational Drug Use: No Drugs: None Hx Prescription Drug Abuse: No - Advance Directive Resuscitation Status: Full Code Family History Family History: Reviewed & Not Pertinent, Arthritis, DM, Hyperlipidemia Parental Family History Reviewed: Yes Children Family History Reviewed: Unknown Sibling(s) Family History Reviewed.: Unknown Medication/Allergy Home Medications: Aspirin [Aspirin 325 mg Tablet] 325 mg PO DAILY 02/28/17 Carvedilol [Coreg 6.25 mg Tablet] 6.25 mg PO Q12 02/28/17 Famotidine [Pepcid] 20 mg PO Q12 02/28/17 Fluticasone/Salmeterol [Advair 250-50 Diskus 28 dose] 1 puff IH Q12 02/28/17 Tamsulosin HCl [Flomax 0.4 mg Cap.sr] 0.4 mg PO QHS 02/28/17 Thiamine HCl [Thiamine 100 mg Tablet] 50 mg PO DAILY 02/28/17 Allergies/Adverse Reactions: No Known Allergies Allergy (Verified 02/27/17 20:52) Review of Systems Constitutional: PRESENT: weakness. ABSENT: fever(s), headache(s) Eyes: ABSENT: visual disturbances Ears: ABSENT: hearing changes Cardiovascular: ABSENT: edema, orthropnea Respiratory: ABSENT: hemoptysis Gastrointestinal: PRESENT: hematemesis. ABSENT: diarrhea, hematochezia Genitourinary: ABSENT: dysuria, hematuria Neurological: ABSENT: syncope, tingling, tremor(s), vertigo Endocrine: ABSENT: polydipsia, polyphagia, polyuria Physical Exam Vital Signs: Temp Pulse Resp BP Pulse Ox 96.8 F L 92 12 130/78 H 98 02/28/17 12:14 02/28/17 12:14 02/28/17 12:14 02/28/17 12:14 02/28/17 12:14 Intake & Output 02/27/17 02/28/17 03/01/17 06:59 06:59 06:59 Intake Total 0 Output Total 100 Balance -100 Weight 74.389 kg Head exam: PRESENT: atraumatic, normocephalic Eye exam: PRESENT: EOMI, PERRLA. ABSENT: periorbital swelling, scleral icterus Mouth exam: PRESENT: neck supple Throat exam: ABSENT: tonsillar exudate, tonsillogmegaly Neck exam: ABSENT: meningismus, tenderness, thyromegaly, tracheal deviation Respiratory exam: PRESENT: symmetrical. ABSENT: chest wall tenderness, wheezes Cardiovascular exam: PRESENT: RRR, +S1, +S2 GI/Abdominal exam: PRESENT: distended, firm, tenderness. ABSENT: Salgado's sign , rigid Extremities exam: ABSENT: joint swelling Neurological exam: PRESENT: oriented to time, oriented to situation, CN II-XII grossly intact Focused psych exam: ABSENT: restlessness Skin exam: PRESENT: normal color. ABSENT: mottled, pallor, urticaria, vesicles Results Laboratory Results: 02/28/17 03:50 02/28/17 11:18 02/28/17 02/28/17 02/28/17 03:50 03:50 06:50 WBC 10.5 RBC 3.69 L Hgb 12.0 L Hct 34.2 L MCV 93 MCH 32.4 MCHC 35.0 RDW 13.1 Plt Count 463 H Seg Neutrophils % 48.2 Lymphocytes % 25.1 Monocytes % 17.1 H Eosinophils % 8.4 H Basophils % 1.2 Absolute Neutrophils 5.1 Absolute Lymphocytes 2.7 Absolute Monocytes 1.8 H Absolute Eosinophils 0.9 H Absolute Basophils 0.1 Sodium 115.7 L* Potassium 4.3 Chloride 81 L Carbon Dioxide 24 Anion Gap 11 BUN 6 L Creatinine 0.64 Est GFR ( Amer) > 60 Est GFR (Non-Af Amer) > 60 Glucose 76 Calcium 9.1 Blood Type A POSITIVE Antibody Screen NEGATIVE 02/28/17 11:18 WBC RBC Hgb Hct MCV MCH MCHC RDW Plt Count Seg Neutrophils % Lymphocytes % Monocytes % Eosinophils % Basophils % Absolute Neutrophils Absolute Lymphocytes Absolute Monocytes Absolute Eosinophils Absolute Basophils Sodium 125.8 L Potassium 3.8 Chloride 95 L Carbon Dioxide 20 L Anion Gap 11 BUN 5 L Creatinine 0.63 Est GFR ( Amer) > 60 Est GFR (Non-Af Amer) > 60 Glucose 68 L Calcium 7.9 L Blood Type Antibody Screen Impressions: Acute Abdomen Series 02/27/17 21:06 IMPRESSION: NO RADIOGRAPHIC EVIDENCE FOR ACUTE ABDOMINAL DISEASE. Abdomen/Pelvis CT 02/28/17 00:00 IMPRESSION: Discontinuous colonic bowel wall thickening and mild-moderate mesenteric/retroperitoneal lymphadenopathy. Differential diagnosis includes infectious, inflammatory, and neoplastic etiologies. No suspicious interval change compared with prior exam, 08/05/2015. Chest X-Ray 02/28/17 00:00 IMPRESSION: NO ACUTE RADIOGRAPHIC FINDING IN THE CHEST. KUB X-Ray 02/28/17 06:32 IMPRESSION: No acute findings. 2010 [employer]- All Rights Reserved Assessment & Plan - Diagnosis (1) Upper GI bleed Is this a current diagnosis for this admission?: Yes Plan: started on octreotide, and PPI drip will check Pt/ PTT once stable for EGD , will proceed transfuse as necessary (2) Hyponatremia Is this a current diagnosis for this admission?: Yes Plan: correction in progress (3) Alcohol intoxication Plan: late stage complications of alcohol use ? possible any meaningful recovery - Time Time Spent: 50 to 70 Minutes
[2017-02-28] MEDS ORDERED: INFLUENZA ADLT QUAD (36MOS+) 2017-18 VAC 0.5 ML SYR IM PRN (13:01)
[2017-02-28] MEDS: LORAZEPAM INJ 2 MG/1 ML VIAL IV PRN (13:24)
--- NOTE | 2017-02-28 13:30 | Operative Report ---
Operative Report DATE OF SURGERY: 02/28/17 Operative Report: The risks benefits and alternatives of the procedure explained to the patient in detail and informed consent is obtained.A GIF Olympus video scope was inserted into the patient's mouth and hypopharynx, the esophagus is identified intubated and insufflated, the scope was then advanced through the esophagus stomach and duodenum, retroflexion maneuver is done, the esophagus stomach and first and second portions of the duodenum examined PREOPERATIVE DIAGNOSIS: GI bleeding POSTOPERATIVE DIAGNOSIS: Esophageal ulcer. Gastritis. Hiatal hernia. Biopsy obtained to rule out for Helicobacter pylori OPERATION: EGD with biopsy SURGEON: PEDRO ASHTON ANESTHESIA: LMAC TISSUE REMOVED OR ALTERED: None COMPLICATIONS: None. ESTIMATED BLOOD LOSS: None. INTRAOPERATIVE FINDINGS: As noted above. PROCEDURE: Patient tolerated procedure well. We will leave the NG tube out. Since no active bleeding Dr. Carias is aware Continue octreotide for 24 hours Continue PPI drip Hopefully can be extubated soon Hyponatremia can be corrected.
[2017-02-28 15:44] LABS: ABSOLUTE BASOPHILS # (AUTO) 0.1 10^3/uL (0.0-0.2); ABSOLUTE EOSINOPHILS # (AUTO) 0.5 10^3/uL (0.0-0.6); ABSOLUTE LYMPHOCYTES (AUTO) 1.5 10^3/uL (0.5-4.7); ABSOLUTE MONOCYTES (AUTO) 1.3 10^3/uL (0.1-1.4); ABSOLUTE NEUT (AUTO) 3.8 10^3/uL (1.7-8.2); BASOPHILS % (AUTO) 1.3 % (0-2); EOSINOPHILS % (AUTO) 7.5 % (0-6); HEMATOCRIT 33.7 % (37.9-51.0); HEMOGLOBIN 11.8 g/dL (13.5-17.0); LYMPHOCYTES % (AUTO) 20.6 % (13-45); MEAN CORPUSCULAR HEMOGLOBIN 32.3 pg (27.0-33.4); MEAN CORPUSCULAR HGB CONC 34.9 g/dL (32.0-36.0); MEAN CORPUSCULAR VOLUME 92 fl (80-97); MONOCYTES % (AUTO) 17.9 % (3-13); PLATELET COUNT 416 10^3/uL (150-450); RED BLOOD COUNT 3.65 10^6/uL (4.35-5.55); SEGMENTED NEUTROPHILS % (AUTO) 52.7 % (42-78); TOTAL CELLS COUNTED % (AUTO) 100 %; WHITE BLOOD COUNT 7.3 10^3/uL (4.0-10.5)
--- NOTE | 2017-02-28 16:33 | PDOC CONSULTATION ---
Consultation Consult Date: 02/28/17 Attending physician:: NOEL GALAVIZ Consult reason:: resp failure History of Present Illness Admission Date/PCP: 02/28/17 02:44 History of Present Illness: all history per chart as patient intubated presented to the ED with mental status changes was noted to be profoundly hyponatremic.Patient had emesis, noted to have blood admitted to the ICU.He was placed on Sandostatin and PPI drip once stabalized, an undergo EGD to rule out source of GI bleeding could be due to varices vs peptic ulcer disease has history of encephalopathy, due to alcohol positive abdominal distension, nausea and vomiting patient has been intubated for airway protection EGD is deemed an emergency and so will get hopitalist to sign off on that as well CT scan shows some bowel thickening but no acute obstruction is noted Past Medical History Cardiac Medical History: Reports: Hypertension Pulmonary Medical History: Reports: Chronic Obstructive Pulmonary Disease (COPD) , Pneumonia EENT Medical History: Denies: Ears, Nose Neurological Medical History: Denies: Multiple Sclerosis Endocrine Medical History: Denies: Gestational Diabetes, Hyperthyroidism, Hypothyroidism, Obesity Malignancy Medical History: Reports: Colorectal Cancer GI Medical History: Reports: Gastroesophageal Reflux Disease Musculoskeltal Medical History: Reports: Arthritis Denies: Fibromyalgia Skin Medical History: Reports: Psoriasis Psychiatric Medical History: Reports: Alcohol Dependency, Depression, Tobacco Dependency Traumatic Medical History: Denies: Traumatic Brain Injury Hematology: Reports: Anemia Denies: Hemophilia, Sickle Cell Disease Infectious Medical History: Past Surgical History Past Surgical History: Reports: Colostomy - ileostomy from hernia around colon 1 yr ago, Herniorrhaphy, Ileostomy - Ileostomy was taken down in May 2012., Orthopedic Surgery - Spinal fusion Social History Information Source: [facility] Records Lives with: Family Smoking Status: Current Every Day Smoker Frequency of Alcohol Use: Heavy Hx Recreational Drug Use: No Drugs: None Hx Prescription Drug Abuse: No - Advance Directive Resuscitation Status: Full Code Family History Family History: Arthritis, DM, Hyperlipidemia Parental Family History Reviewed: No Children Family History Reviewed: No Sibling(s) Family History Reviewed.: No Medication/Allergy Home Medications: Aspirin [Aspirin 325 mg Tablet] 325 mg PO DAILY 02/28/17 Carvedilol [Coreg 6.25 mg Tablet] 6.25 mg PO Q12 02/28/17 Famotidine [Pepcid] 20 mg PO Q12 02/28/17 Fluticasone/Salmeterol [Advair 250-50 Diskus 28 dose] 1 puff IH Q12 02/28/17 Tamsulosin HCl [Flomax 0.4 mg Cap.sr] 0.4 mg PO QHS 02/28/17 Thiamine HCl [Thiamine 100 mg Tablet] 50 mg PO DAILY 02/28/17 Allergies/Adverse Reactions: No Known Allergies Allergy (Verified 02/27/17 20:52) Review of Systems ROS unobtainable: Due to endotracheal tube Physical Exam Vital Signs: Temp Pulse Resp BP Pulse Ox 97.2 F 92 16 81/63 L 98 02/28/17 07:57 02/27/17 19:45 02/28/17 07:57 02/28/17 07:57 02/28/17 07:57 Intake & Output 02/27/17 02/28/17 03/01/17 06:59 06:59 06:59 Weight 74.389 kg General appearance: PRESENT: no acute distress, disheveled, well-developed. ABSENT: cooperative, mild distress, morbidly obese, obese, severe distress Head exam: PRESENT: atraumatic, normocephalic Eye exam: PRESENT: conjunctiva pale. ABSENT: conjunctival injection, conjunctiva pink, nystagmus, periorbital swelling, scleral icterus Mouth exam: PRESENT: dry mucosa, neck supple, tongue midline, other - ET tube. ABSENT: laceration, moist Neck exam: ABSENT: carotid bruit, JVD, lymphadenopathy, thyromegaly, tracheal deviation, tracheostomy Respiratory exam: PRESENT: decreased breath sounds, prolonged expiratory phas, rales, rhonchi, symmetrical, unlabored. ABSENT: accessory muscle use, chest wall tenderness, clear to auscultation temo, crackles, retraction, stridor, tachypnea, wheezes Cardiovascular exam: PRESENT: RRR, +S1, +S2 Pulses: PRESENT: normal radial pulses GI/Abdominal exam: PRESENT: diminished bowel sounds, distended, soft Gentrourinary exam: PRESENT: indwelling catheter Extremities exam: ABSENT: clubbing, joint swelling Musculoskeletal exam: ABSENT: deformity, dislocation Neurological exam: ABSENT: alert, awake Skin exam: PRESENT: dry, warm Results Laboratory Results: 02/28/17 03:50 02/28/17 03:50 02/28/17 02/28/17 02/28/17 03:50 03:50 06:50 WBC 10.5 RBC 3.69 L Hgb 12.0 L Hct 34.2 L MCV 93 MCH 32.4 MCHC 35.0 RDW 13.1 Plt Count 463 H Seg Neutrophils % 48.2 Lymphocytes % 25.1 Monocytes % 17.1 H Eosinophils % 8.4 H Basophils % 1.2 Absolute Neutrophils 5.1 Absolute Lymphocytes 2.7 Absolute Monocytes 1.8 H Absolute Eosinophils 0.9 H Absolute Basophils 0.1 Sodium 115.7 L* Potassium 4.3 Chloride 81 L Carbon Dioxide 24 Anion Gap 11 BUN 6 L Creatinine 0.64 Est GFR ( Amer) > 60 Est GFR (Non-Af Amer) > 60 Glucose 76 Calcium 9.1 Blood Type A POSITIVE Antibody Screen NEGATIVE Impressions: Acute Abdomen Series 02/27/17 21:06 IMPRESSION: NO RADIOGRAPHIC EVIDENCE FOR ACUTE ABDOMINAL DISEASE. Abdomen/Pelvis CT 02/28/17 00:00 IMPRESSION: Discontinuous colonic bowel wall thickening and mild-moderate mesenteric/retroperitoneal lymphadenopathy. Differential diagnosis includes infectious, inflammatory, and neoplastic etiologies. No suspicious interval change compared with prior exam, 08/05/2015. Chest X-Ray 02/28/17 00:00 IMPRESSION: NO ACUTE RADIOGRAPHIC FINDING IN THE CHEST. KUB X-Ray 02/28/17 06:32 IMPRESSION: No acute findings. 2010 [employer]- All Rights Reserved Assessment & Plan - Diagnosis (1) Anemia associated with acute blood loss Is this a current diagnosis for this admission?: Yes Plan: serial H/H (2) Hyponatremia Is this a current diagnosis for this admission?: Yes Plan: Labs- All tests 24 hr 02/27/17 02/28/17 02/28/17 22:50 03:50 11:18 Sodium 116.7 L* 115.7 L* 125.8 L (3) Upper GI bleed Is this a current diagnosis for this admission?: Yes Plan: as per GI med (4) Tobacco abuse Is this a current diagnosis for this admission?: Yes Plan: stop smoking (5) Alcohol abuse Is this a current diagnosis for this admission?: Yes Plan: DT precaution not aware of last alcohol ingestion (6) COPD (chronic obstructive pulmonary disease) Qualifiers: COPD type: COPD with acute exacerbation Qualified Code(s): J44.1 - Chronic obstructive pulmonary disease with (acute) exacerbation Is this a current diagnosis for this admission?: Yes Plan: Generic Name Dose Route Start Last Admin Trade Name Freq PRN Reason Stop Dose Admin Albuterol/Ipratropium 3 ml 02/28/17 08:00 02/28/17 16:18 Duoneb 3 Ml Ampul NEB 03/30/17 07:59 3 ml RTQ8 ZHENG - Time Total Critical Time (Minutes): 55
[2017-02-28 16:51] LABS: ANION GAP 9 (5-19); BLOOD UREA NITROGEN 5 mg/dL (7-20); CALCIUM 8.2 mg/dL (8.4-10.2); CARBON DIOXIDE 21 mmol/L (22-30); CHLORIDE 99 mmol/L (98-107); GLUCOSE 68 mg/dL (75-110); POTASSIUM 3.8 mmol/L (3.6-5.0); SODIUM 129.3 mmol/L (137-145)
--- NOTE | 2017-02-28 17:01 | EKG REPORT ---
SEVERITY:- ABNORMAL ECG - SINUS RHYTHM PROBABLE LEFT ATRIAL ABNORMALITY INFERIOR INFARCT, OLD CONSIDER ANTEROLATERAL INFARCT PROLONGED QT INTERVAL : Confirmed by: Zuri Sharma 28-Feb-2017 17:00:07
[2017-02-28] MEDS: DEXTROSE 5%-WATER 1000 ML 1,000 ML IV PRN (22:35)
[2017-02-28 23:09] LABS: ANION GAP 11 (5-19); BLOOD UREA NITROGEN 3 mg/dL (7-20); CALCIUM 8.2 mg/dL (8.4-10.2); CARBON DIOXIDE 19 mmol/L (22-30); CHLORIDE 101 mmol/L (98-107); GLUCOSE 64 mg/dL (75-110); SODIUM 131.3 mmol/L (137-145)
[2017-03-01] MEDS: PROPOFOL 100 ML IV PRN ×6 (00:01→19:34)
[2017-03-01] MEDS: IPRATROPIUM/ALBUTEROL 0.5-2.5 MG/3 ML AMPUL NEB SCH ×3 (00:11→15:59)
[2017-03-01 04:52] LABS: ARTERIAL BLOOD BASE EXCESS -6.8 mmol/L; ARTERIAL BLOOD H2CO3 0.84 mmol/L (1.05-1.35); ARTERIAL BLOOD HCO3 16.8 mmol/L (20-26); ARTERIAL BLOOD O2 SATURATION 97.1 % (94-98); ARTERIAL BLOOD PO2 91.1 mmHg (80-100); ARTERIAL BLOOD TOTAL CO2 17.7 mmol/L (23-27)
[2017-03-01 05:04] LABS: ABSOLUTE BASOPHILS # (AUTO) 0.2 10^3/uL (0.0-0.2); ABSOLUTE EOSINOPHILS # (AUTO) 0.6 10^3/uL (0.0-0.6); ABSOLUTE LYMPHOCYTES (AUTO) 1.4 10^3/uL (0.5-4.7); ABSOLUTE MONOCYTES (AUTO) 1.3 10^3/uL (0.1-1.4); ABSOLUTE NEUT (AUTO) 4.7 10^3/uL (1.7-8.2); EOSINOPHILS % (AUTO) 7.4 % (0-6); HEMATOCRIT 31.5 % (37.9-51.0); HEMOGLOBIN 11.2 g/dL (13.5-17.0); LYMPHOCYTES % (AUTO) 17.5 % (13-45); MEAN CORPUSCULAR HEMOGLOBIN 32.6 pg (27.0-33.4); MEAN CORPUSCULAR HGB CONC 35.5 g/dL (32.0-36.0); MEAN CORPUSCULAR VOLUME 92 fl (80-97); MONOCYTES % (AUTO) 15.7 % (3-13); PLATELET COUNT 412 10^3/uL (150-450); RED BLOOD COUNT 3.42 10^6/uL (4.35-5.55); RED CELL DISTRIBUTION WIDTH 14.1 % (11.5-14.0); SEGMENTED NEUTROPHILS % (AUTO) 57.4 % (42-78); TOTAL CELLS COUNTED % (AUTO) 100 %; WHITE BLOOD COUNT 8.2 10^3/uL (4.0-10.5)
[2017-03-01 05:12] LABS: ANION GAP 12 (5-19); BLOOD UREA NITROGEN 3 mg/dL (7-20); CALCIUM 8.1 mg/dL (8.4-10.2); CARBON DIOXIDE 18 mmol/L (22-30); CHLORIDE 100 mmol/L (98-107); GLUCOSE 164 mg/dL (75-110); MAGNESIUM 1.5 mg/dL (1.6-2.3); POTASSIUM 3.8 mmol/L (3.6-5.0); SODIUM 129.7 mmol/L (137-145)
[2017-03-01 05:15] LABS: ARTERIAL BLOOD FIO2 30
[2017-03-01] MEDS: HEPARIN SOD (PORCINE) 5,000 UNIT/ML 1 ML SYRINGE SUBCUT SCH ×3 (06:29→21:26)
[2017-03-01] MEDS: DEXTROSE 5%-WATER 1000 ML 1,000 ML IV PRN (07:37)
--- NOTE | 2017-03-01 08:25 | PDOC PROGRESS REPORT ---
Subjective Progress Note for:: 03/01/17 Subjective:: patient underwent EGD yesterday noted to have findings of an esophageal ulcer no observed varices no acute events overnight Hyponatremia is improving patient likely will need DT prophylaxis once extubated can D/C Octreotide keep on PPI for right now will need follow up EGD in 6 weeks to document healing Reason For Visit: HYPONATREMIA, NAUSEA C VOMITING Physical Exam Vital Signs: Temp Pulse Resp BP Pulse Ox 98.6 F 92 14 89/55 L 97 03/01/17 06:27 03/01/17 00:10 03/01/17 06:27 03/01/17 06:27 03/01/17 06:27 Intake & Output 02/28/17 03/01/17 03/02/17 06:59 06:59 06:59 Intake Total 3816 Output Total 3500 Balance 316 Weight 74.389 kg 81.9 kg Head exam: PRESENT: atraumatic, normocephalic Eye exam: PRESENT: EOMI, PERRLA. ABSENT: nystagmus, periorbital swelling, scleral icterus Mouth exam: PRESENT: moist Throat exam: ABSENT: tonsillar exudate, tonsillogmegaly Neck exam: ABSENT: meningismus, tenderness, thyromegaly Respiratory exam: PRESENT: symmetrical. ABSENT: wheezes Cardiovascular exam: PRESENT: RRR, +S1, +S2 GI/Abdominal exam: PRESENT: soft. ABSENT: rebound, rigid, tenderness Extremities exam: ABSENT: joint swelling Neurological exam: PRESENT: oriented to time, oriented to situation, CN II-XII grossly intact Focused psych exam: PRESENT: restlessness Skin exam: PRESENT: normal color. ABSENT: mottled, pallor, petechiae, urticaria , vesicles Results Laboratory Results: 03/01/17 04:42 03/01/17 04:42 02/28/17 02/28/17 02/28/17 06:50 11:18 15:15 WBC 7.3 RBC 3.65 L Hgb 11.8 L Hct 33.7 L MCV 92 MCH 32.3 MCHC 34.9 RDW 14.0 Plt Count 416 Seg Neutrophils % 52.7 Lymphocytes % 20.6 Monocytes % 17.9 H Eosinophils % 7.5 H Basophils % 1.3 Absolute Neutrophils 3.8 Absolute Lymphocytes 1.5 Absolute Monocytes 1.3 Absolute Eosinophils 0.5 Absolute Basophils 0.1 Carbonic Acid HCO3/H2CO3 Ratio ABG pH ABG pCO2 ABG pO2 ABG HCO3 ABG O2 Saturation ABG Base Excess FiO2 Sodium 125.8 L Potassium 3.8 Chloride 95 L Carbon Dioxide 20 L Anion Gap 11 BUN 5 L Creatinine 0.63 Est GFR ( Amer) > 60 Est GFR (Non-Af Amer) > 60 Glucose 68 L Calcium 7.9 L Magnesium Blood Type A POSITIVE Antibody Screen NEGATIVE 02/28/17 02/28/17 03/01/17 16:27 22:35 04:42 WBC RBC Hgb Hct MCV MCH MCHC RDW Plt Count Seg Neutrophils % Lymphocytes % Monocytes % Eosinophils % Basophils % Absolute Neutrophils Absolute Lymphocytes Absolute Monocytes Absolute Eosinophils Absolute Basophils Carbonic Acid 0.84 L HCO3/H2CO3 Ratio 20:1 ABG pH 7.40 ABG pCO2 28.0 L ABG pO2 91.1 ABG HCO3 16.8 L ABG O2 Saturation 97.1 ABG Base Excess -6.8 FiO2 30 Sodium 129.3 L 131.3 L Potassium 3.8 4.0 Chloride 99 101 Carbon Dioxide 21 L 19 L Anion Gap 9 11 BUN 5 L 3 L Creatinine 0.62 0.62 Est GFR ( Amer) > 60 > 60 Est GFR (Non-Af Amer) > 60 > 60 Glucose 68 L 64 L Calcium 8.2 L 8.2 L Magnesium Blood Type Antibody Screen 03/01/17 03/01/17 04:42 04:42 WBC 8.2 RBC 3.42 L Hgb 11.2 L Hct 31.5 L MCV 92 MCH 32.6 MCHC 35.5 RDW 14.1 H Plt Count 412 Seg Neutrophils % 57.4 Lymphocytes % 17.5 Monocytes % 15.7 H Eosinophils % 7.4 H Basophils % 2.0 Absolute Neutrophils 4.7 Absolute Lymphocytes 1.4 Absolute Monocytes 1.3 Absolute Eosinophils 0.6 Absolute Basophils 0.2 Carbonic Acid HCO3/H2CO3 Ratio ABG pH ABG pCO2 ABG pO2 ABG HCO3 ABG O2 Saturation ABG Base Excess FiO2 Sodium 129.7 L Potassium 3.8 Chloride 100 Carbon Dioxide 18 L Anion Gap 12 BUN 3 L Creatinine 0.63 Est GFR ( Amer) > 60 Est GFR (Non-Af Amer) > 60 Glucose 164 H Calcium 8.1 L Magnesium 1.5 L Blood Type Antibody Screen Impressions: Acute Abdomen Series 02/27/17 21:06 IMPRESSION: NO RADIOGRAPHIC EVIDENCE FOR ACUTE ABDOMINAL DISEASE. Abdomen/Pelvis CT 02/28/17 00:00 IMPRESSION: Discontinuous colonic bowel wall thickening and mild-moderate mesenteric/retroperitoneal lymphadenopathy. Differential diagnosis includes infectious, inflammatory, and neoplastic etiologies. No suspicious interval change compared with prior exam, 08/05/2015. Chest X-Ray 02/28/17 00:00 IMPRESSION: NO ACUTE RADIOGRAPHIC FINDING IN THE CHEST. KUB X-Ray 02/28/17 06:32 IMPRESSION: No acute findings. 2010 [employer]- All Rights Reserved Assessment & Plan - Diagnosis (1) Upper GI bleed Is this a current diagnosis for this admission?: Yes Plan: due to esophageal ulcer NG has been removed no active bleeding D/C Octreotide keep on PPI follow up EGD as outpatient to document healing wait on biopsy (2) Hyponatremia Is this a current diagnosis for this admission?: Yes Plan: improving with time (3) Alcohol intoxication Plan: will probably need DT prophylaxis check phos level
[2017-03-01] MEDS: MAGNESIUM OXIDE 400 MG TABLET NG SCH ×2 (10:48→18:01)
[2017-03-01] MEDS: CARVEDILOL 3.125 MG TABLET NG SCH ×2 (10:48→21:28)
[2017-03-01] MEDS: ASPIRIN 325 MG TABLET NG SCH (10:49)
[2017-03-01 11:04] LABS: ANION GAP 11 (5-19); BLOOD UREA NITROGEN 2 mg/dL (7-20); CALCIUM 8.3 mg/dL (8.4-10.2); CARBON DIOXIDE 19 mmol/L (22-30); CHLORIDE 99 mmol/L (98-107); GLUCOSE 214 mg/dL (75-110); POTASSIUM 3.8 mmol/L (3.6-5.0); SODIUM 129.4 mmol/L (137-145)
[2017-03-01] MEDS: MAGNESIUM SULFATE/D5W 1 GM/100 ML RTUPB IV SCH ×3 (11:29→13:44)
--- NOTE | 2017-03-01 11:35 | PDOC PROGRESS REPORT ---
Subjective Progress Note for:: 03/01/17 Subjective:: Intubated and sedated at the time of my exam Reason For Visit: HYPONATREMIA, NAUSEA C VOMITING Physical Exam Vital Signs: Temp Pulse Resp BP Pulse Ox 98.8 F 103 H 20 137/89 H 98 03/01/17 10:00 03/01/17 10:00 03/01/17 10:00 03/01/17 10:00 03/01/17 10:00 Intake & Output 02/28/17 03/01/17 03/02/17 06:59 06:59 06:59 Intake Total 3816 Output Total 3500 625 Balance 316 -625 Weight 74.389 kg 81.9 kg General appearance: PRESENT: no acute distress Eye exam: PRESENT: conjunctiva pink. ABSENT: scleral icterus Mouth exam: PRESENT: moist, tongue midline Neck exam: ABSENT: JVD Respiratory exam: PRESENT: clear to auscultation temo. ABSENT: rales, rhonchi, wheezes Cardiovascular exam: PRESENT: RRR. ABSENT: diastolic murmur, rubs, systolic murmur GI/Abdominal exam: PRESENT: normal bowel sounds, soft. ABSENT: distended, guarding, mass, organolmegaly, rebound, tenderness Extremities exam: ABSENT: calf tenderness, clubbing, pedal edema Neurological exam: PRESENT: other - Sedated Psychiatric exam: PRESENT: other - Sedated Skin exam: PRESENT: dry, intact, warm. ABSENT: cyanosis, rash Results Laboratory Results: 03/01/17 04:42 03/01/17 10:17 02/28/17 02/28/17 02/28/17 06:50 11:18 15:15 WBC 7.3 RBC 3.65 L Hgb 11.8 L Hct 33.7 L MCV 92 MCH 32.3 MCHC 34.9 RDW 14.0 Plt Count 416 Seg Neutrophils % 52.7 Lymphocytes % 20.6 Monocytes % 17.9 H Eosinophils % 7.5 H Basophils % 1.3 Absolute Neutrophils 3.8 Absolute Lymphocytes 1.5 Absolute Monocytes 1.3 Absolute Eosinophils 0.5 Absolute Basophils 0.1 Carbonic Acid HCO3/H2CO3 Ratio ABG pH ABG pCO2 ABG pO2 ABG HCO3 ABG O2 Saturation ABG Base Excess FiO2 Sodium 125.8 L Potassium 3.8 Chloride 95 L Carbon Dioxide 20 L Anion Gap 11 BUN 5 L Creatinine 0.63 Est GFR ( Amer) > 60 Est GFR (Non-Af Amer) > 60 Glucose 68 L Calcium 7.9 L Magnesium Blood Type A POSITIVE Antibody Screen NEGATIVE 02/28/17 02/28/17 03/01/17 16:27 22:35 04:42 WBC RBC Hgb Hct MCV MCH MCHC RDW Plt Count Seg Neutrophils % Lymphocytes % Monocytes % Eosinophils % Basophils % Absolute Neutrophils Absolute Lymphocytes Absolute Monocytes Absolute Eosinophils Absolute Basophils Carbonic Acid 0.84 L HCO3/H2CO3 Ratio 20:1 ABG pH 7.40 ABG pCO2 28.0 L ABG pO2 91.1 ABG HCO3 16.8 L ABG O2 Saturation 97.1 ABG Base Excess -6.8 FiO2 30 Sodium 129.3 L 131.3 L Potassium 3.8 4.0 Chloride 99 101 Carbon Dioxide 21 L 19 L Anion Gap 9 11 BUN 5 L 3 L Creatinine 0.62 0.62 Est GFR ( Amer) > 60 > 60 Est GFR (Non-Af Amer) > 60 > 60 Glucose 68 L 64 L Calcium 8.2 L 8.2 L Magnesium Blood Type Antibody Screen 03/01/17 03/01/17 03/01/17 04:42 04:42 10:17 WBC 8.2 RBC 3.42 L Hgb 11.2 L Hct 31.5 L MCV 92 MCH 32.6 MCHC 35.5 RDW 14.1 H Plt Count 412 Seg Neutrophils % 57.4 Lymphocytes % 17.5 Monocytes % 15.7 H Eosinophils % 7.4 H Basophils % 2.0 Absolute Neutrophils 4.7 Absolute Lymphocytes 1.4 Absolute Monocytes 1.3 Absolute Eosinophils 0.6 Absolute Basophils 0.2 Carbonic Acid HCO3/H2CO3 Ratio ABG pH ABG pCO2 ABG pO2 ABG HCO3 ABG O2 Saturation ABG Base Excess FiO2 Sodium 129.7 L 129.4 L Potassium 3.8 3.8 Chloride 100 99 Carbon Dioxide 18 L 19 L Anion Gap 12 11 BUN 3 L 2 L Creatinine 0.63 0.59 Est GFR ( Amer) > 60 > 60 Est GFR (Non-Af Amer) > 60 > 60 Glucose 164 H 214 H Calcium 8.1 L 8.3 L Magnesium 1.5 L Blood Type Antibody Screen Impressions: Acute Abdomen Series 02/27/17 21:06 IMPRESSION: NO RADIOGRAPHIC EVIDENCE FOR ACUTE ABDOMINAL DISEASE. Abdomen/Pelvis CT 02/28/17 00:00 IMPRESSION: Discontinuous colonic bowel wall thickening and mild-moderate mesenteric/retroperitoneal lymphadenopathy. Differential diagnosis includes infectious, inflammatory, and neoplastic etiologies. No suspicious interval change compared with prior exam, 08/05/2015. Chest X-Ray 02/28/17 00:00 IMPRESSION: NO ACUTE RADIOGRAPHIC FINDING IN THE CHEST. KUB X-Ray 02/28/17 06:32 IMPRESSION: No acute findings. 2010 [employer]- All Rights Reserved Assessment & Plan - Diagnosis (1) Respiratory distress Is this a current diagnosis for this admission?: Yes Plan: The patient was intubated for respiratory distress and airway protection. Pulmonary medicine is following (2) Upper GI bleed Is this a current diagnosis for this admission?: Yes Plan: Patient was found to have an esophageal ulcer as the cause. Hemoglobin has remained stable. GIs input is appreciated. Continue with Protonix. Will DC the octreotide. (3) Anemia associated with acute blood loss Is this a current diagnosis for this admission?: Yes Plan: Patient only received 1 unit of packed red blood cells. Hemoglobin has remained stable. (4) Hyponatremia Is this a current diagnosis for this admission?: Yes Plan: Improving. Most likely secondary to alcohol use. (5) Alcohol abuse Is this a current diagnosis for this admission?: Yes Plan: We will give Ativan as needed. (6) Hypertension Is this a current diagnosis for this admission?: Yes Plan: Blood pressure has improved. He is no longer on pressors. - Time Time Spent with patient: 25-34 minutes - Inpatient Certification Medical Necessity: Need Close Monitoring Due to Risk of Patient Decompensation
--- NOTE | 2017-03-01 12:01 | RADIOLOGY REPORT (SQ) ---
EXAM DESCRIPTION: KUB/ABDOMEN (SINGLE VIEW) COMPLETED DATE/TIME: 03/01/2017 11:39 am REASON FOR STUDY: Check Placement of NG Tube COMPARISON: 02/29/2016 NUMBER OF VIEWS: One view. TECHNIQUE: Supine radiographic image of the abdomen acquired. LIMITATIONS: None. FINDINGS: Limited view the abdomen was submitted. NG tube is in place. Catheter tip overlies the b charlene of the stomach. IMPRESSION: NG tube has been placed as described. TECHNICAL DOCUMENTATION: JOB ID: [id number] [employer]- All Rights Reserved
[2017-03-01 17:17] LABS: ANION GAP 6 (5-19); CALCIUM 8.7 mg/dL (8.4-10.2); CARBON DIOXIDE 23 mmol/L (22-30); CHLORIDE 100 mmol/L (98-107); GLUCOSE 208 mg/dL (75-110); POTASSIUM 3.9 mmol/L (3.6-5.0); SODIUM 129.2 mmol/L (137-145)
[2017-03-01 17:32] LABS: BLOOD UREA NITROGEN < 2 mg/dL (7-20)
[2017-03-01] MEDS: NORMAL SALINE 100 ML with PANTOPRAZOLE SODIUM 80 MG IV PRN ×2 (18:02)
[2017-03-01 22:16] LABS: ANION GAP 6 (5-19); CALCIUM 8.5 mg/dL (8.4-10.2); CARBON DIOXIDE 24 mmol/L (22-30); CHLORIDE 100 mmol/L (98-107); GLUCOSE 193 mg/dL (75-110); POTASSIUM 3.7 mmol/L (3.6-5.0); SODIUM 129.8 mmol/L (137-145)
[2017-03-01 22:18] LABS: BLOOD UREA NITROGEN < 2 mg/dL (7-20)
[2017-03-02] MEDS: IPRATROPIUM/ALBUTEROL 0.5-2.5 MG/3 ML AMPUL NEB SCH ×4 (00:06→23:32)
[2017-03-02] MEDS: PROPOFOL 100 ML IV PRN ×3 (03:23→05:26)
[2017-03-02 04:57] LABS: ARTERIAL BLOOD H2CO3 1.02 mmol/L (1.05-1.35); ARTERIAL BLOOD HCO3 24.2 mmol/L (20-26); ARTERIAL BLOOD O2 SATURATION 86.3 % (94-98); ARTERIAL BLOOD PH 7.47 (7.35-7.45); ARTERIAL BLOOD PO2 47.5 mmHg (80-100); ARTERIAL BLOOD TOTAL CO2 25.2 mmol/L (23-27)
[2017-03-02 04:58] LABS: ABSOLUTE BASOPHILS # (AUTO) 0.1 10^3/uL (0.0-0.2); ABSOLUTE EOSINOPHILS # (AUTO) 0.5 10^3/uL (0.0-0.6); ABSOLUTE LYMPHOCYTES (AUTO) 1.5 10^3/uL (0.5-4.7); ABSOLUTE MONOCYTES (AUTO) 1.3 10^3/uL (0.1-1.4); ABSOLUTE NEUT (AUTO) 4.3 10^3/uL (1.7-8.2); BASOPHILS % (AUTO) 1.4 % (0-2); EOSINOPHILS % (AUTO) 6.9 % (0-6); HEMATOCRIT 33.4 % (37.9-51.0); HEMOGLOBIN 11.5 g/dL (13.5-17.0); LYMPHOCYTES % (AUTO) 19.9 % (13-45); MEAN CORPUSCULAR HEMOGLOBIN 31.7 pg (27.0-33.4); MEAN CORPUSCULAR HGB CONC 34.5 g/dL (32.0-36.0); MEAN CORPUSCULAR VOLUME 92 fl (80-97); MONOCYTES % (AUTO) 16.3 % (3-13); PLATELET COUNT 443 10^3/uL (150-450); RED BLOOD COUNT 3.63 10^6/uL (4.35-5.55); RED CELL DISTRIBUTION WIDTH 14.3 % (11.5-14.0); SEGMENTED NEUTROPHILS % (AUTO) 55.5 % (42-78); TOTAL CELLS COUNTED % (AUTO) 100 %; WHITE BLOOD COUNT 7.8 10^3/uL (4.0-10.5)
[2017-03-02 04:59] LABS: ARTERIAL BLOOD FIO2 21%
[2017-03-02 05:04] LABS: INTERNATIONAL RATION (INR) 1.04; PROTHROMBIN TIME 14.3 SEC (11.4-15.4)
[2017-03-02 05:09] LABS: MAGNESIUM 2.1 mg/dL (1.6-2.3)
[2017-03-02] MEDS: NORMAL SALINE 100 ML with PANTOPRAZOLE SODIUM 80 MG IV PRN ×6 (05:25→23:22)
[2017-03-02] MEDS: DEXTROSE 5%-WATER 1000 ML 1,000 ML IV PRN ×3 (05:27→23:22)
[2017-03-02] MEDS: HEPARIN SOD (PORCINE) 5,000 UNIT/ML 1 ML SYRINGE SUBCUT SCH ×3 (05:29→21:26)
--- NOTE | 2017-03-02 07:49 | RADIOLOGY REPORT (SQ) ---
EXAM DESCRIPTION: CHEST SINGLE VIEW CLINICAL HISTORY: 66 years, Male, resp failure COMPARISON: 03/01/17. NUMBER OF VIEWS: 1 LIMITATIONS: None. FINDINGS: Prominent interstitium, normal cardiac silhouette, adequate appearing endotracheal tube, enteric tube, and right subclavian central line. No pneumothorax. Mild osteoarthritis. Mild scoliotic curvature. IMPRESSION: No significant change.
[2017-03-02] MEDS: LORAZEPAM INJ 2 MG/1 ML VIAL IV PRN ×3 (08:22→22:32)
[2017-03-02] MEDS: MAGNESIUM OXIDE 400 MG TABLET NG SCH ×2 (09:36→17:22)
[2017-03-02] MEDS: ASPIRIN 325 MG TABLET NG SCH (09:36)
[2017-03-02] MEDS: CARVEDILOL 3.125 MG TABLET NG SCH ×2 (09:36→21:26)
--- NOTE | 2017-03-02 10:58 | PDOC PROGRESS REPORT ---
Subjective Progress Note for:: 03/02/17 Subjective:: Intubated and sedated at the time of my exam Reason For Visit: HYPONATREMIA, NAUSEA C VOMITING Physical Exam Vital Signs: Temp Pulse Resp BP Pulse Ox 99.9 F 116 H 16 143/76 H 100 03/02/17 10:00 03/02/17 10:00 03/02/17 10:00 03/02/17 10:00 03/02/17 10:00 Intake & Output 03/01/17 03/02/17 03/03/17 06:59 06:59 06:59 Intake Total 3816 3129 Output Total 3500 4295 295 Balance 316 -1166 -295 Weight 81.9 kg 77.3 kg General appearance: PRESENT: no acute distress Eye exam: PRESENT: conjunctiva pink. ABSENT: scleral icterus Mouth exam: PRESENT: moist, tongue midline Neck exam: ABSENT: JVD Respiratory exam: PRESENT: clear to auscultation temo. ABSENT: rales, rhonchi, wheezes Cardiovascular exam: PRESENT: RRR. ABSENT: diastolic murmur, rubs, systolic murmur GI/Abdominal exam: PRESENT: normal bowel sounds, soft. ABSENT: distended, guarding, mass, organolmegaly, rebound, tenderness Extremities exam: ABSENT: calf tenderness, clubbing, pedal edema Neurological exam: PRESENT: other Skin exam: PRESENT: dry, intact, warm. ABSENT: cyanosis, rash Results Laboratory Results: 03/02/17 04:45 03/01/17 21:45 03/01/17 03/01/17 03/01/17 10:17 16:47 21:45 WBC RBC Hgb Hct MCV MCH MCHC RDW Plt Count Seg Neutrophils % Lymphocytes % Monocytes % Eosinophils % Basophils % Absolute Neutrophils Absolute Lymphocytes Absolute Monocytes Absolute Eosinophils Absolute Basophils Carbonic Acid HCO3/H2CO3 Ratio ABG pH ABG pCO2 ABG pO2 ABG HCO3 ABG O2 Saturation ABG Base Excess FiO2 Sodium 129.4 L 129.2 L 129.8 L Potassium 3.8 3.9 3.7 Chloride 99 100 100 Carbon Dioxide 19 L 23 24 Anion Gap 11 6 6 BUN 2 L < 2 L < 2 L Creatinine 0.59 0.57 0.58 Est GFR ( Amer) > 60 > 60 > 60 Est GFR (Non-Af Amer) > 60 > 60 > 60 Glucose 214 H 208 H 193 H Calcium 8.3 L 8.7 8.5 Magnesium Triglycerides 03/02/17 03/02/17 03/02/17 04:45 04:45 04:45 WBC 7.8 RBC 3.63 L Hgb 11.5 L Hct 33.4 L MCV 92 MCH 31.7 MCHC 34.5 RDW 14.3 H Plt Count 443 Seg Neutrophils % 55.5 Lymphocytes % 19.9 Monocytes % 16.3 H Eosinophils % 6.9 H Basophils % 1.4 Absolute Neutrophils 4.3 Absolute Lymphocytes 1.5 Absolute Monocytes 1.3 Absolute Eosinophils 0.5 Absolute Basophils 0.1 Carbonic Acid 1.02 L HCO3/H2CO3 Ratio 23:1 ABG pH 7.47 H ABG pCO2 34.0 L ABG pO2 47.5 L ABG HCO3 24.2 ABG O2 Saturation 86.3 L ABG Base Excess 1.0 FiO2 21% Sodium Potassium Chloride Carbon Dioxide Anion Gap BUN Creatinine Est GFR ( Amer) Est GFR (Non-Af Amer) Glucose Calcium Magnesium 2.1 Triglycerides 79 Impressions: Acute Abdomen Series 02/27/17 21:06 IMPRESSION: NO RADIOGRAPHIC EVIDENCE FOR ACUTE ABDOMINAL DISEASE. Abdomen/Pelvis CT 02/28/17 00:00 IMPRESSION: Discontinuous colonic bowel wall thickening and mild-moderate mesenteric/retroperitoneal lymphadenopathy. Differential diagnosis includes infectious, inflammatory, and neoplastic etiologies. No suspicious interval change compared with prior exam, 08/05/2015. KUB X-Ray 03/01/17 00:00 IMPRESSION: NG tube has been placed as described. Chest X-Ray 03/02/17 06:00 IMPRESSION: No significant change. Assessment & Plan - Diagnosis (1) Respiratory distress Is this a current diagnosis for this admission?: Yes Plan: The patient was intubated for respiratory distress and airway protection. Pulmonary medicine is following (2) Upper GI bleed Is this a current diagnosis for this admission?: Yes Plan: Patient was found to have an esophageal ulcer as the cause. Hemoglobin has remained stable. GIs input is appreciated. Continue with Protonix. (3) Anemia associated with acute blood loss Is this a current diagnosis for this admission?: Yes Plan: Patient only received 1 unit of packed red blood cells. Hemoglobin has remained stable. (4) Hyponatremia Is this a current diagnosis for this admission?: Yes Plan: Stable. Most likely secondary to alcohol use. (5) Alcohol abuse Is this a current diagnosis for this admission?: Yes Plan: We will give Ativan as needed. (6) Hypertension Is this a current diagnosis for this admission?: Yes Plan: Blood pressure has improved. He is no longer on pressors. - Time Time Spent with patient: 25-34 minutes - Inpatient Certification Medical Necessity: Need Close Monitoring Due to Risk of Patient Decompensation - Plan Summary Plan Summary: Pulmonary medicine is managing the ventilator. Hopefully he will be able to be extubated in the near future.
[2017-03-02 12:11] LABS: ARTERIAL BLOOD BASE EXCESS 0.7 mmol/L; ARTERIAL BLOOD H2CO3 0.92 mmol/L (1.05-1.35); ARTERIAL BLOOD HCO3 23.3 mmol/L (20-26); ARTERIAL BLOOD O2 SATURATION 94.8 % (94-98); ARTERIAL BLOOD PCO2 30.5 mmHg (35-45); ARTERIAL BLOOD PO2 65.7 mmHg (80-100); ARTERIAL BLOOD TOTAL CO2 24.2 mmol/L (23-27)
[2017-03-02 12:12] LABS: ARTERIAL BLOOD FIO2 21%
[2017-03-02] MEDS: NORMAL SALINE 500 ML with OCTREOTIDE ACETATE 500 MCG IV PRN ×2 (14:00)
--- NOTE | 2017-03-02 21:02 | PDOC PROGRESS REPORT ---
Subjective Progress Note for:: 03/01/17 Subjective:: intubated sedated Reason For Visit: HYPONATREMIA, NAUSEA C VOMITING Physical Exam Vital Signs: Temp Pulse Resp BP Pulse Ox 98.4 F 89 16 140/75 H 99 03/01/17 08:00 03/01/17 08:00 03/01/17 08:00 03/01/17 08:00 03/01/17 08:00 Intake & Output 02/28/17 03/01/17 03/02/17 06:59 06:59 06:59 Intake Total 3816 Output Total 3500 400 Balance 316 -400 Weight 74.389 kg 81.9 kg General appearance: PRESENT: no acute distress, disheveled, well-developed. ABSENT: cooperative, mild distress, morbidly obese, severe distress Head exam: PRESENT: atraumatic, normocephalic Eye exam: PRESENT: conjunctiva pale. ABSENT: conjunctival injection, conjunctiva pink, nystagmus, periorbital swelling, scleral icterus Mouth exam: PRESENT: tongue midline, other - Et tube. ABSENT: dry mucosa, laceration, moist Teeth exam: ABSENT: dental caries Respiratory exam: PRESENT: decreased breath sounds, prolonged expiratory phas, rales, rhonchi, symmetrical, unlabored. ABSENT: accessory muscle use, chest wall tenderness, clear to auscultation temo, crackles, retraction, stridor, tachypnea Cardiovascular exam: PRESENT: RRR, +S1, +S2 Pulses: PRESENT: normal radial pulses GI/Abdominal exam: PRESENT: diminished bowel sounds Extremities exam: ABSENT: clubbing, joint swelling Musculoskeletal exam: ABSENT: deformity, dislocation Neurological exam: ABSENT: alert, awake Skin exam: PRESENT: dry, warm Results Laboratory Results: 03/01/17 04:42 03/01/17 04:42 02/28/17 02/28/17 02/28/17 06:50 11:18 15:15 WBC 7.3 RBC 3.65 L Hgb 11.8 L Hct 33.7 L MCV 92 MCH 32.3 MCHC 34.9 RDW 14.0 Plt Count 416 Seg Neutrophils % 52.7 Lymphocytes % 20.6 Monocytes % 17.9 H Eosinophils % 7.5 H Basophils % 1.3 Absolute Neutrophils 3.8 Absolute Lymphocytes 1.5 Absolute Monocytes 1.3 Absolute Eosinophils 0.5 Absolute Basophils 0.1 Carbonic Acid HCO3/H2CO3 Ratio ABG pH ABG pCO2 ABG pO2 ABG HCO3 ABG O2 Saturation ABG Base Excess FiO2 Sodium 125.8 L Potassium 3.8 Chloride 95 L Carbon Dioxide 20 L Anion Gap 11 BUN 5 L Creatinine 0.63 Est GFR ( Amer) > 60 Est GFR (Non-Af Amer) > 60 Glucose 68 L Calcium 7.9 L Magnesium Blood Type A POSITIVE Antibody Screen NEGATIVE 02/28/17 02/28/17 03/01/17 16:27 22:35 04:42 WBC RBC Hgb Hct MCV MCH MCHC RDW Plt Count Seg Neutrophils % Lymphocytes % Monocytes % Eosinophils % Basophils % Absolute Neutrophils Absolute Lymphocytes Absolute Monocytes Absolute Eosinophils Absolute Basophils Carbonic Acid 0.84 L HCO3/H2CO3 Ratio 20:1 ABG pH 7.40 ABG pCO2 28.0 L ABG pO2 91.1 ABG HCO3 16.8 L ABG O2 Saturation 97.1 ABG Base Excess -6.8 FiO2 30 Sodium 129.3 L 131.3 L Potassium 3.8 4.0 Chloride 99 101 Carbon Dioxide 21 L 19 L Anion Gap 9 11 BUN 5 L 3 L Creatinine 0.62 0.62 Est GFR ( Amer) > 60 > 60 Est GFR (Non-Af Amer) > 60 > 60 Glucose 68 L 64 L Calcium 8.2 L 8.2 L Magnesium Blood Type Antibody Screen 03/01/17 03/01/17 04:42 04:42 WBC 8.2 RBC 3.42 L Hgb 11.2 L Hct 31.5 L MCV 92 MCH 32.6 MCHC 35.5 RDW 14.1 H Plt Count 412 Seg Neutrophils % 57.4 Lymphocytes % 17.5 Monocytes % 15.7 H Eosinophils % 7.4 H Basophils % 2.0 Absolute Neutrophils 4.7 Absolute Lymphocytes 1.4 Absolute Monocytes 1.3 Absolute Eosinophils 0.6 Absolute Basophils 0.2 Carbonic Acid HCO3/H2CO3 Ratio ABG pH ABG pCO2 ABG pO2 ABG HCO3 ABG O2 Saturation ABG Base Excess FiO2 Sodium 129.7 L Potassium 3.8 Chloride 100 Carbon Dioxide 18 L Anion Gap 12 BUN 3 L Creatinine 0.63 Est GFR ( Amer) > 60 Est GFR (Non-Af Amer) > 60 Glucose 164 H Calcium 8.1 L Magnesium 1.5 L Blood Type Antibody Screen Impressions: Acute Abdomen Series 02/27/17 21:06 IMPRESSION: NO RADIOGRAPHIC EVIDENCE FOR ACUTE ABDOMINAL DISEASE. Abdomen/Pelvis CT 02/28/17 00:00 IMPRESSION: Discontinuous colonic bowel wall thickening and mild-moderate mesenteric/retroperitoneal lymphadenopathy. Differential diagnosis includes infectious, inflammatory, and neoplastic etiologies. No suspicious interval change compared with prior exam, 08/05/2015. Chest X-Ray 02/28/17 00:00 IMPRESSION: NO ACUTE RADIOGRAPHIC FINDING IN THE CHEST. KUB X-Ray 02/28/17 06:32 IMPRESSION: No acute findings. 2010 [employer]- All Rights Reserved Assessment & Plan - Diagnosis (1) Anemia associated with acute blood loss Is this a current diagnosis for this admission?: Yes Plan: stable (2) Hyponatremia Is this a current diagnosis for this admission?: Yes (3) Upper GI bleed Is this a current diagnosis for this admission?: Yes Plan: s/p EGD (4) Tobacco abuse Is this a current diagnosis for this admission?: Yes Plan: stop smoking (5) Alcohol abuse Is this a current diagnosis for this admission?: Yes (6) COPD (chronic obstructive pulmonary disease) Qualifiers: COPD type: COPD with acute exacerbation Qualified Code(s): J44.1 - Chronic obstructive pulmonary disease with (acute) exacerbation Is this a current diagnosis for this admission?: Yes Plan: Generic Name Dose Route Start Last Admin Trade Name Freq PRN Reason Stop Dose Admin Albuterol/Ipratropium 3 ml 02/28/17 08:00 02/28/17 16:18 Duoneb 3 Ml Ampul NEB 03/30/17 07:59 3 ml [id number] ZHENG - Time Total Critical Time (Minutes): 45
--- NOTE | 2017-03-02 21:06 | PDOC PROGRESS REPORT ---
Subjective Progress Note for:: 03/02/17 Subjective:: intubated sedated Reason For Visit: HYPONATREMIA, NAUSEA C VOMITING Physical Exam Vital Signs: Temp Pulse Resp BP Pulse Ox 99.9 F 81 16 143/76 H 97 03/02/17 10:00 03/02/17 08:00 03/02/17 10:00 03/02/17 09:58 03/02/17 10:00 Intake & Output 03/01/17 03/02/17 03/03/17 06:59 06:59 06:59 Intake Total 3816 3129 Output Total 3500 4295 220 Balance 316 -1166 -220 Weight 81.9 kg 77.3 kg General appearance: PRESENT: no acute distress, disheveled, well-developed. ABSENT: cooperative, mild distress, morbidly obese, severe distress Head exam: PRESENT: atraumatic, normocephalic Eye exam: PRESENT: conjunctiva pale. ABSENT: conjunctival injection, conjunctiva pink, nystagmus, periorbital swelling, scleral icterus Mouth exam: PRESENT: dry mucosa, neck supple, tongue midline, other - ET tube. ABSENT: laceration, moist Neck exam: ABSENT: carotid bruit, JVD, lymphadenopathy, thyromegaly, tracheal deviation, tracheostomy Respiratory exam: PRESENT: decreased breath sounds, prolonged expiratory phas, rales, rhonchi, symmetrical. ABSENT: accessory muscle use, chest wall tenderness, clear to auscultation temo, crackles, retraction, stridor, tachypnea Cardiovascular exam: PRESENT: RRR, +S1, +S2 GI/Abdominal exam: PRESENT: diminished bowel sounds, soft Extremities exam: ABSENT: clubbing, joint swelling Musculoskeletal exam: ABSENT: ambulatory, deformity, dislocation Neurological exam: PRESENT: awake Skin exam: PRESENT: dry, warm Results Laboratory Results: 03/02/17 04:45 03/01/17 21:45 03/01/17 03/01/17 03/01/17 10:17 16:47 21:45 WBC RBC Hgb Hct MCV MCH MCHC RDW Plt Count Seg Neutrophils % Lymphocytes % Monocytes % Eosinophils % Basophils % Absolute Neutrophils Absolute Lymphocytes Absolute Monocytes Absolute Eosinophils Absolute Basophils Carbonic Acid HCO3/H2CO3 Ratio ABG pH ABG pCO2 ABG pO2 ABG HCO3 ABG O2 Saturation ABG Base Excess FiO2 Sodium 129.4 L 129.2 L 129.8 L Potassium 3.8 3.9 3.7 Chloride 99 100 100 Carbon Dioxide 19 L 23 24 Anion Gap 11 6 6 BUN 2 L < 2 L < 2 L Creatinine 0.59 0.57 0.58 Est GFR ( Amer) > 60 > 60 > 60 Est GFR (Non-Af Amer) > 60 > 60 > 60 Glucose 214 H 208 H 193 H Calcium 8.3 L 8.7 8.5 Magnesium Triglycerides 03/02/17 03/02/17 03/02/17 04:45 04:45 04:45 WBC 7.8 RBC 3.63 L Hgb 11.5 L Hct 33.4 L MCV 92 MCH 31.7 MCHC 34.5 RDW 14.3 H Plt Count 443 Seg Neutrophils % 55.5 Lymphocytes % 19.9 Monocytes % 16.3 H Eosinophils % 6.9 H Basophils % 1.4 Absolute Neutrophils 4.3 Absolute Lymphocytes 1.5 Absolute Monocytes 1.3 Absolute Eosinophils 0.5 Absolute Basophils 0.1 Carbonic Acid 1.02 L HCO3/H2CO3 Ratio 23:1 ABG pH 7.47 H ABG pCO2 34.0 L ABG pO2 47.5 L ABG HCO3 24.2 ABG O2 Saturation 86.3 L ABG Base Excess 1.0 FiO2 21% Sodium Potassium Chloride Carbon Dioxide Anion Gap BUN Creatinine Est GFR ( Amer) Est GFR (Non-Af Amer) Glucose Calcium Magnesium 2.1 Triglycerides 79 Impressions: Acute Abdomen Series 02/27/17 21:06 IMPRESSION: NO RADIOGRAPHIC EVIDENCE FOR ACUTE ABDOMINAL DISEASE. Abdomen/Pelvis CT 02/28/17 00:00 IMPRESSION: Discontinuous colonic bowel wall thickening and mild-moderate mesenteric/retroperitoneal lymphadenopathy. Differential diagnosis includes infectious, inflammatory, and neoplastic etiologies. No suspicious interval change compared with prior exam, 08/05/2015. KUB X-Ray 03/01/17 00:00 IMPRESSION: NG tube has been placed as described. Chest X-Ray 03/02/17 06:00 IMPRESSION: No significant change. Assessment & Plan - Diagnosis (1) Anemia associated with acute blood loss Is this a current diagnosis for this admission?: Yes Plan: stable (2) Hyponatremia Is this a current diagnosis for this admission?: Yes Plan: Labs- All tests 24 hr 02/27/17 02/28/17 02/28/17 22:50 03:50 11:18 Sodium 116.7 L* 115.7 L* 125.8 L (3) Upper GI bleed Is this a current diagnosis for this admission?: Yes (4) Tobacco abuse Is this a current diagnosis for this admission?: Yes Plan: stop smoking (5) Alcohol abuse Is this a current diagnosis for this admission?: Yes (6) COPD (chronic obstructive pulmonary disease) Qualifiers: COPD type: COPD with acute exacerbation Qualified Code(s): J44.1 - Chronic obstructive pulmonary disease with (acute) exacerbation Is this a current diagnosis for this admission?: Yes
[2017-03-03] MEDS: LORAZEPAM INJ 2 MG/1 ML VIAL IV PRN ×3 (00:56→22:12)
[2017-03-03 04:55] LABS: ARTERIAL BLOOD BASE EXCESS 0.5 mmol/L; ARTERIAL BLOOD HCO3 22.8 mmol/L (20-26); ARTERIAL BLOOD O2 SATURATION 94.6 % (94-98); ARTERIAL BLOOD PO2 65.1 mmHg (80-100); ARTERIAL BLOOD TOTAL CO2 23.7 mmol/L (23-27)
[2017-03-03 05:00] LABS: ARTERIAL BLOOD FIO2 21%
[2017-03-03 05:11] LABS: ABSOLUTE BASOPHILS # (AUTO) 0.1 10^3/uL (0.0-0.2); ABSOLUTE EOSINOPHILS # (AUTO) 0.7 10^3/uL (0.0-0.6); ABSOLUTE LYMPHOCYTES (AUTO) 2.2 10^3/uL (0.5-4.7); ABSOLUTE MONOCYTES (AUTO) 1.7 10^3/uL (0.1-1.4); ABSOLUTE NEUT (AUTO) 5.7 10^3/uL (1.7-8.2); BASOPHILS % (AUTO) 0.7 % (0-2); EOSINOPHILS % (AUTO) 7.1 % (0-6); HEMATOCRIT 32.8 % (37.9-51.0); HEMOGLOBIN 11.5 g/dL (13.5-17.0); LYMPHOCYTES % (AUTO) 20.7 % (13-45); MEAN CORPUSCULAR HEMOGLOBIN 32.4 pg (27.0-33.4); MEAN CORPUSCULAR HGB CONC 35.2 g/dL (32.0-36.0); MEAN CORPUSCULAR VOLUME 92 fl (80-97); MONOCYTES % (AUTO) 16.4 % (3-13); PLATELET COUNT 439 10^3/uL (150-450); RED BLOOD COUNT 3.56 10^6/uL (4.35-5.55); RED CELL DISTRIBUTION WIDTH 14.2 % (11.5-14.0); SEGMENTED NEUTROPHILS % (AUTO) 55.1 % (42-78); TOTAL CELLS COUNTED % (AUTO) 100 %; WHITE BLOOD COUNT 10.4 10^3/uL (4.0-10.5)
[2017-03-03] MEDS: HEPARIN SOD (PORCINE) 5,000 UNIT/ML 1 ML SYRINGE SUBCUT SCH ×3 (05:33→22:43)
[2017-03-03 07:01] LABS: ALANINE AMINOTRANSFERASE 49 U/L (21-72); ALBUMIN 3.2 g/dL (3.5-5.0); ALKALINE PHOSPHATASE 94 U/L (38-126); ANION GAP 10 (5-19); ASPARTATE AMINO TRANSFERASE 33 U/L (17-59); BILIRUBIN,DIRECT 0.4 mg/dL (0.0-0.4); BILIRUBIN,TOTAL 0.6 mg/dL (0.2-1.3); BLOOD UREA NITROGEN 2 mg/dL (7-20); CALCIUM 8.4 mg/dL (8.4-10.2); CARBON DIOXIDE 22 mmol/L (22-30); CHLORIDE 100 mmol/L (98-107); GLUCOSE 94 mg/dL (75-110); MAGNESIUM 1.9 mg/dL (1.6-2.3); SODIUM 132.4 mmol/L (137-145); TOTAL PROTEIN 6.3 g/dL (6.3-8.2)
[2017-03-03 07:04] LABS: POTASSIUM 3.7 mmol/L (3.6-5.0)
[2017-03-03] MEDS: IPRATROPIUM/ALBUTEROL 0.5-2.5 MG/3 ML AMPUL NEB SCH ×3 (07:43→23:36)
--- NOTE | 2017-03-03 07:55 | RADIOLOGY REPORT (SQ) ---
EXAM DESCRIPTION: CHEST SINGLE VIEW CLINICAL HISTORY: 66 years, Male, resp failure COMPARISON: 03/02/17. NUMBER OF VIEWS: 1 LIMITATIONS: None. FINDINGS: Adequate lung volume, clear parenchyma, normal cardiac silhouette, no pneumothorax, adequate appearing endotracheal tube, adequate appearing enteric tube, adequate appearing right subclavian central line tip at the cavoatrial junction, and moderate osteoarthritis. IMPRESSION: No significant change.
[2017-03-03] MEDS: ASPIRIN 325 MG TABLET NG SCH (09:55)
[2017-03-03] MEDS: CARVEDILOL 3.125 MG TABLET NG SCH ×2 (09:55→22:11)
[2017-03-03] MEDS: MAGNESIUM OXIDE 400 MG TABLET NG SCH ×2 (09:55→17:08)
[2017-03-03] MEDS: DEXTROSE 5%-WATER 1000 ML 1,000 ML IV PRN ×2 (09:56→17:08)
--- NOTE | 2017-03-03 12:39 | PDOC PROGRESS REPORT ---
Subjective Progress Note for:: 03/03/17 Subjective:: Patient is intubated this morning. He is able to nod his head yes or no. Reason For Visit: HYPONATREMIA, NAUSEA C VOMITING Physical Exam Vital Signs: Temp Pulse Resp BP Pulse Ox 99.7 F 89 21 H 126/66 H 95 03/03/17 12:00 03/03/17 12:00 03/03/17 12:00 03/03/17 12:00 03/03/17 12:00 Intake & Output 03/02/17 03/03/17 03/04/17 06:59 06:59 06:59 Intake Total 3129 2900 Output Total 4295 2665 360 Balance -1166 235 -360 Weight 77.3 kg 80.7 kg General appearance: PRESENT: no acute distress Eye exam: PRESENT: conjunctiva pink. ABSENT: scleral icterus Mouth exam: PRESENT: moist, tongue midline Neck exam: ABSENT: JVD Respiratory exam: PRESENT: clear to auscultation temo. ABSENT: rales, rhonchi, wheezes Cardiovascular exam: PRESENT: RRR. ABSENT: diastolic murmur, rubs, systolic murmur GI/Abdominal exam: PRESENT: normal bowel sounds, soft. ABSENT: distended, guarding, mass, organolmegaly, rebound, tenderness Extremities exam: ABSENT: calf tenderness, clubbing, pedal edema Neurological exam: PRESENT: other - Intubated Skin exam: PRESENT: dry, intact, warm. ABSENT: cyanosis, rash Results Laboratory Results: 03/03/17 05:00 03/03/17 05:00 03/03/17 03/03/17 03/03/17 04:30 05:00 05:00 WBC 10.4 RBC 3.56 L Hgb 11.5 L Hct 32.8 L MCV 92 MCH 32.4 MCHC 35.2 RDW 14.2 H Plt Count 439 Seg Neutrophils % 55.1 Lymphocytes % 20.7 Monocytes % 16.4 H Eosinophils % 7.1 H Basophils % 0.7 Absolute Neutrophils 5.7 Absolute Lymphocytes 2.2 Absolute Monocytes 1.7 H Absolute Eosinophils 0.7 H Absolute Basophils 0.1 Carbonic Acid 0.90 L HCO3/H2CO3 Ratio 25:1 ABG pH 7.50 H ABG pCO2 30.0 L ABG pO2 65.1 L ABG HCO3 22.8 ABG O2 Saturation 94.6 ABG Base Excess 0.5 FiO2 21% Sodium 132.4 L Potassium 3.7 Chloride 100 Carbon Dioxide 22 Anion Gap 10 BUN 2 L Creatinine 0.62 Est GFR ( Amer) > 60 Est GFR (Non-Af Amer) > 60 Glucose 94 Calcium 8.4 Magnesium 1.9 Total Bilirubin 0.6 AST 33 ALT 49 Alkaline Phosphatase 94 Total Protein 6.3 Albumin 3.2 L Impressions: Acute Abdomen Series 02/27/17 21:06 IMPRESSION: NO RADIOGRAPHIC EVIDENCE FOR ACUTE ABDOMINAL DISEASE. Abdomen/Pelvis CT 02/28/17 00:00 IMPRESSION: Discontinuous colonic bowel wall thickening and mild-moderate mesenteric/retroperitoneal lymphadenopathy. Differential diagnosis includes infectious, inflammatory, and neoplastic etiologies. No suspicious interval change compared with prior exam, 08/05/2015. KUB X-Ray 03/01/17 00:00 IMPRESSION: NG tube has been placed as described. Chest X-Ray 03/03/17 06:00 IMPRESSION: No significant change. Assessment & Plan - Diagnosis (1) Respiratory distress Is this a current diagnosis for this admission?: Yes Plan: The patient was intubated for respiratory distress and airway protection. Pulmonary medicine is following (2) Upper GI bleed Is this a current diagnosis for this admission?: Yes Plan: Patient was found to have an esophageal ulcer as the cause. Hemoglobin has remained stable. GIs input is appreciated. Continue with Protonix. (3) Anemia associated with acute blood loss Is this a current diagnosis for this admission?: Yes Plan: Patient only received 1 unit of packed red blood cells. Hemoglobin has remained stable. (4) Hyponatremia Is this a current diagnosis for this admission?: Yes Plan: Stable. Most likely secondary to alcohol use. (5) Alcohol abuse Is this a current diagnosis for this admission?: Yes Plan: We will give Ativan as needed. (6) Hypertension Is this a current diagnosis for this admission?: Yes Plan: Blood pressure has improved. He is no longer on pressors. - Time Time Spent with patient: 25-34 minutes
[2017-03-03] MEDS ORDERED: IPRATROPIUM/ALBUTEROL 0.5-2.5 MG/3 ML AMPUL NEB PRN (20:05)
[2017-03-03] MEDS ORDERED: VANCOMYCIN HCL INJ 500 MG VIAL PO ONE (22:45)
[2017-03-03] MEDS ORDERED: VANCOMYCIN HCL INJ 500 MG VIAL ONE (22:58)
[2017-03-04] MEDS: DEXTROSE 5%-WATER 1000 ML 1,000 ML IV PRN ×2 (04:18→14:22)
[2017-03-04] MEDS: LORAZEPAM INJ 2 MG/1 ML VIAL IV PRN (04:31)
[2017-03-04 05:17] LABS: ARTERIAL BLOOD BASE EXCESS -4.5 mmol/L; ARTERIAL BLOOD H2CO3 1.14 mmol/L (1.05-1.35); ARTERIAL BLOOD HCO3 20.6 mmol/L (20-26); ARTERIAL BLOOD O2 SATURATION 93.8 % (94-98); ARTERIAL BLOOD PH 7.35 (7.35-7.45); ARTERIAL BLOOD PO2 71.5 mmHg (80-100); ARTERIAL BLOOD TOTAL CO2 21.8 mmol/L (23-27)
[2017-03-04 05:19] LABS: ABSOLUTE BASOPHILS # (AUTO) 0.1 10^3/uL (0.0-0.2); ABSOLUTE MONOCYTES (AUTO) 1.7 10^3/uL (0.1-1.4); ABSOLUTE NEUT (AUTO) 7.4 10^3/uL (1.7-8.2); EOSINOPHILS % (AUTO) 8.1 % (0-6); HEMATOCRIT 33.8 % (37.9-51.0); HEMOGLOBIN 11.4 g/dL (13.5-17.0); LYMPHOCYTES % (AUTO) 16.4 % (13-45); MEAN CORPUSCULAR HEMOGLOBIN 31.6 pg (27.0-33.4); MEAN CORPUSCULAR HGB CONC 33.8 g/dL (32.0-36.0); MEAN CORPUSCULAR VOLUME 94 fl (80-97); MONOCYTES % (AUTO) 13.9 % (3-13); PLATELET COUNT 417 10^3/uL (150-450); RED BLOOD COUNT 3.61 10^6/uL (4.35-5.55); RED CELL DISTRIBUTION WIDTH 13.9 % (11.5-14.0); SEGMENTED NEUTROPHILS % (AUTO) 60.6 % (42-78); TOTAL CELLS COUNTED % (AUTO) 100 %; WHITE BLOOD COUNT 12.2 10^3/uL (4.0-10.5)
[2017-03-04 05:47] LABS: ALANINE AMINOTRANSFERASE 39 U/L (21-72); ALBUMIN 3.4 g/dL (3.5-5.0); ALKALINE PHOSPHATASE 95 U/L (38-126); ANION GAP 10 (5-19); ASPARTATE AMINO TRANSFERASE 34 U/L (17-59); BILIRUBIN,DIRECT 0.3 mg/dL (0.0-0.4); BILIRUBIN,TOTAL 0.7 mg/dL (0.2-1.3); BLOOD UREA NITROGEN 3 mg/dL (7-20); CALCIUM 8.9 mg/dL (8.4-10.2); CARBON DIOXIDE 20 mmol/L (22-30); CHLORIDE 98 mmol/L (98-107); GLUCOSE 104 mg/dL (75-110); MAGNESIUM 1.7 mg/dL (1.6-2.3); SODIUM 127.7 mmol/L (137-145); TOTAL PROTEIN 6.9 g/dL (6.3-8.2)
[2017-03-04 05:51] LABS: ARTERIAL BLOOD FIO2 ROOM AIR
--- NOTE | 2017-03-04 07:15 | RADIOLOGY REPORT (SQ) ---
EXAM DESCRIPTION: CHEST SINGLE VIEW CLINICAL HISTORY: 66 years, Male, resp failure COMPARISON: 03/03/17. NUMBER OF VIEWS: 1 LIMITATIONS: None. FINDINGS: Prominent interstitium, normal cardiac silhouette, atherosclerosis, right subclavian central line tip at the cavoatrial junction. Mild osteoarthritis. Mild dextroconvexity. IMPRESSION: No significant change.
[2017-03-04] MEDS: VANCOMYCIN HCL INJ 500 MG VIAL PO SCH ×2 (08:02→12:59)
[2017-03-04] MEDS: HEPARIN SOD (PORCINE) 5,000 UNIT/ML 1 ML SYRINGE SUBCUT SCH ×3 (08:06→21:50)
[2017-03-04] MEDS: IPRATROPIUM/ALBUTEROL 0.5-2.5 MG/3 ML AMPUL NEB SCH ×3 (08:42→20:45)
--- NOTE | 2017-03-04 10:53 | PDOC PROGRESS REPORT ---
Subjective Progress Note for:: 03/04/17 Subjective:: continues to have significant diarrhea. Tested positive for C. difficile. Reason For Visit: HYPONATREMIA, NAUSEA C VOMITING Physical Exam Vital Signs: Temp Pulse Resp BP Pulse Ox 98.8 F 84 26 H 143/88 H 100 03/04/17 08:00 03/04/17 08:42 03/04/17 08:42 03/04/17 08:00 03/04/17 08:42 Intake & Output 03/03/17 03/04/17 03/05/17 06:59 06:59 06:59 Intake Total 2900 2896 Output Total 2665 2350 75 Balance 235 546 -75 Weight 80.7 kg General appearance: PRESENT: no acute distress Eye exam: PRESENT: conjunctiva pink. ABSENT: scleral icterus Mouth exam: PRESENT: moist, tongue midline Neck exam: ABSENT: JVD Respiratory exam: PRESENT: rhonchi. ABSENT: rales, wheezes Cardiovascular exam: PRESENT: RRR. ABSENT: diastolic murmur, rubs, systolic murmur GI/Abdominal exam: PRESENT: normal bowel sounds, soft. ABSENT: distended, guarding, mass, organolmegaly, rebound, tenderness Extremities exam: ABSENT: calf tenderness, clubbing, pedal edema Neurological exam: PRESENT: awake, oriented to person, oriented to place Psychiatric exam: PRESENT: appropriate affect Skin exam: PRESENT: dry, intact, warm. ABSENT: cyanosis, rash Results Laboratory Results: 03/04/17 04:45 03/04/17 04:45 03/04/17 03/04/17 03/04/17 04:45 04:45 04:45 WBC 12.2 H RBC 3.61 L Hgb 11.4 L Hct 33.8 L MCV 94 MCH 31.6 MCHC 33.8 RDW 13.9 Plt Count 417 Seg Neutrophils % 60.6 Lymphocytes % 16.4 Monocytes % 13.9 H Eosinophils % 8.1 H Basophils % 1.0 Absolute Neutrophils 7.4 Absolute Lymphocytes 2.0 Absolute Monocytes 1.7 H Absolute Eosinophils 1.0 H Absolute Basophils 0.1 Carbonic Acid 1.14 HCO3/H2CO3 Ratio 18:1 ABG pH 7.35 ABG pCO2 38.0 ABG pO2 71.5 L ABG HCO3 20.6 ABG O2 Saturation 93.8 L ABG Base Excess -4.5 FiO2 ROOM AIR Sodium 127.7 L Potassium 4.0 Chloride 98 Carbon Dioxide 20 L Anion Gap 10 BUN 3 L Creatinine 0.57 Est GFR ( Amer) > 60 Est GFR (Non-Af Amer) > 60 Glucose 104 Calcium 8.9 Magnesium 1.7 Total Bilirubin 0.7 AST 34 ALT 39 Alkaline Phosphatase 95 Total Protein 6.9 Albumin 3.4 L Impressions: Acute Abdomen Series 02/27/17 21:06 IMPRESSION: NO RADIOGRAPHIC EVIDENCE FOR ACUTE ABDOMINAL DISEASE. Abdomen/Pelvis CT 02/28/17 00:00 IMPRESSION: Discontinuous colonic bowel wall thickening and mild-moderate mesenteric/retroperitoneal lymphadenopathy. Differential diagnosis includes infectious, inflammatory, and neoplastic etiologies. No suspicious interval change compared with prior exam, 08/05/2015. KUB X-Ray 03/01/17 00:00 IMPRESSION: NG tube has been placed as described. Chest X-Ray 03/04/17 06:00 IMPRESSION: No significant change. Assessment & Plan - Diagnosis (1) Respiratory distress Is this a current diagnosis for this admission?: Yes Plan: Patient was extubated yesterday. Tolerating this but does have some rhonchi today. (2) Upper GI bleed Is this a current diagnosis for this admission?: Yes Plan: Patient was found to have an esophageal ulcer as the cause. Hemoglobin has remained stable. GIs input is appreciated. Continue with Protonix. (3) Anemia associated with acute blood loss Is this a current diagnosis for this admission?: Yes Plan: Patient only received 1 unit of packed red blood cells. Hemoglobin has remained stable. (4) Hyponatremia Is this a current diagnosis for this admission?: Yes Plan: Stable. Most likely secondary to alcohol use. (5) Alcohol abuse Is this a current diagnosis for this admission?: Yes Plan: We will give Ativan as needed. (6) Hypertension Is this a current diagnosis for this admission?: Yes Plan: blood pressure is stable. - Time Time Spent with patient: 25-34 minutes - Inpatient Certification Medical Necessity: Need Close Monitoring Due to Risk of Patient Decompensation
[2017-03-04] MEDS: ASPIRIN 325 MG TABLET NG SCH (10:54)
[2017-03-04] MEDS: CARVEDILOL 3.125 MG TABLET NG SCH ×2 (10:54→21:49)
[2017-03-04] MEDS: MAGNESIUM OXIDE 400 MG TABLET NG SCH ×2 (10:54→18:34)
[2017-03-04] MEDS: LEVALBUTEROL HCL NEB 0.63 MG/3 ML AMPUL NEB PRN ×2 (14:19→21:06)
--- NOTE | 2017-03-04 14:51 | PDOC PROGRESS REPORT ---
Subjective Progress Note for:: 03/04/17 Subjective:: stable Hgb, did have 1 unit transfusion no further gi bleeding is noted has an esophageal ulcer and biopsies are negative will at some point need repeat EGD to document healing patient still has hyponatremia, work up in progress has C.Diff as well will need 10-14 days treatment Reason For Visit: HYPONATREMIA, NAUSEA C VOMITING Physical Exam Vital Signs: Temp Pulse Resp BP Pulse Ox 98.4 F 86 30 H 134/85 H 97 03/04/17 12:00 03/04/17 14:00 03/04/17 14:00 03/04/17 14:00 03/04/17 14:00 Intake & Output 03/03/17 03/04/17 03/05/17 06:59 06:59 06:59 Intake Total 2900 2896 Output Total 2665 2350 575 Balance 235 546 -575 Weight 80.7 kg General appearance: PRESENT: well-developed, well-nourished Head exam: PRESENT: atraumatic, normocephalic Eye exam: PRESENT: EOMI, PERRLA. ABSENT: nystagmus, periorbital swelling, scleral icterus Mouth exam: PRESENT: moist, neck supple Throat exam: ABSENT: tonsillar exudate, tonsillogmegaly Neck exam: ABSENT: meningismus, tenderness, thyromegaly Respiratory exam: PRESENT: symmetrical, unlabored. ABSENT: tachypnea, wheezes Cardiovascular exam: PRESENT: RRR, +S2 GI/Abdominal exam: PRESENT: soft. ABSENT: rebound, rigid, tenderness Extremities exam: ABSENT: joint swelling Neurological exam: PRESENT: CN II-XII grossly intact Skin exam: PRESENT: normal color. ABSENT: mottled, pallor, petechiae, urticaria , vesicles Results Laboratory Results: 03/04/17 04:45 03/04/17 04:45 03/04/17 03/04/17 03/04/17 04:45 04:45 04:45 WBC 12.2 H RBC 3.61 L Hgb 11.4 L Hct 33.8 L MCV 94 MCH 31.6 MCHC 33.8 RDW 13.9 Plt Count 417 Seg Neutrophils % 60.6 Lymphocytes % 16.4 Monocytes % 13.9 H Eosinophils % 8.1 H Basophils % 1.0 Absolute Neutrophils 7.4 Absolute Lymphocytes 2.0 Absolute Monocytes 1.7 H Absolute Eosinophils 1.0 H Absolute Basophils 0.1 Carbonic Acid 1.14 HCO3/H2CO3 Ratio 18:1 ABG pH 7.35 ABG pCO2 38.0 ABG pO2 71.5 L ABG HCO3 20.6 ABG O2 Saturation 93.8 L ABG Base Excess -4.5 FiO2 ROOM AIR Sodium 127.7 L Potassium 4.0 Chloride 98 Carbon Dioxide 20 L Anion Gap 10 BUN 3 L Creatinine 0.57 Est GFR ( Amer) > 60 Est GFR (Non-Af Amer) > 60 Glucose 104 Calcium 8.9 Magnesium 1.7 Total Bilirubin 0.7 AST 34 ALT 39 Alkaline Phosphatase 95 Total Protein 6.9 Albumin 3.4 L Impressions: Acute Abdomen Series 02/27/17 21:06 IMPRESSION: NO RADIOGRAPHIC EVIDENCE FOR ACUTE ABDOMINAL DISEASE. Abdomen/Pelvis CT 02/28/17 00:00 IMPRESSION: Discontinuous colonic bowel wall thickening and mild-moderate mesenteric/retroperitoneal lymphadenopathy. Differential diagnosis includes infectious, inflammatory, and neoplastic etiologies. No suspicious interval change compared with prior exam, 08/05/2015. KUB X-Ray 03/01/17 00:00 IMPRESSION: NG tube has been placed as described. Chest X-Ray 03/04/17 06:00 IMPRESSION: No significant change. Assessment & Plan - Diagnosis (1) Upper GI bleed Is this a current diagnosis for this admission?: Yes Plan: due to esophageal ulcer, stable no varices keep on PPI for now follow up EGD in 6 weeks either as outpatient or if still here( hopefully not) (2) Hyponatremia Is this a current diagnosis for this admission?: Yes Plan: continue work up has improved some but still hyponatremic, (4) C. difficile colitis Is this a current diagnosis for this admission?: Yes Plan: treat with oral flagyl if not allergic, may have to add Vancomycin will need 14-21 day treatment - Time Time Spent with patient: 15-24 minutes
--- NOTE | 2017-03-04 17:23 | PDOC PROGRESS REPORT ---
Subjective Progress Note for:: 03/03/17 Subjective:: intubated sedated Reason For Visit: HYPONATREMIA, NAUSEA C VOMITING Physical Exam Vital Signs: Temp Pulse Resp BP Pulse Ox 99.9 F 65 15 123/72 93 03/03/17 06:00 03/02/17 23:45 03/03/17 06:00 03/03/17 05:58 03/03/17 06:00 Intake & Output 03/02/17 03/03/17 03/04/17 06:59 06:59 06:59 Intake Total 3129 2900 Output Total 4295 2665 Balance -1166 235 Weight 77.3 kg 80.7 kg General appearance: PRESENT: no acute distress, disheveled, obese. ABSENT: cooperative, mild distress, morbidly obese, severe distress Head exam: PRESENT: atraumatic, normocephalic Eye exam: PRESENT: conjunctiva pale, EOMI. ABSENT: conjunctival injection, conjunctiva pink, nystagmus, periorbital swelling, scleral icterus Mouth exam: PRESENT: dry mucosa, neck supple, tongue midline, other - ET tube in place. ABSENT: laceration, moist Neck exam: ABSENT: carotid bruit, JVD, lymphadenopathy, thyromegaly, tracheal deviation, tracheostomy Respiratory exam: PRESENT: decreased breath sounds, prolonged expiratory phas, rales, rhonchi, symmetrical, unlabored. ABSENT: accessory muscle use, chest wall tenderness, clear to auscultation temo, crackles, retraction, stridor, tachypnea Cardiovascular exam: PRESENT: RRR, +S1, +S2, tachycardia Pulses: PRESENT: normal radial pulses GI/Abdominal exam: PRESENT: other - Status post surgery ostomy draining stool Extremities exam: ABSENT: clubbing, joint swelling Musculoskeletal exam: ABSENT: ambulatory, deformity, dislocation Neurological exam: ABSENT: alert, awake Skin exam: PRESENT: dry, warm Results Laboratory Results: 03/03/17 05:00 03/03/17 05:00 03/02/17 03/03/17 03/03/17 11:42 04:30 05:00 WBC 10.4 RBC 3.56 L Hgb 11.5 L Hct 32.8 L MCV 92 MCH 32.4 MCHC 35.2 RDW 14.2 H Plt Count 439 Seg Neutrophils % 55.1 Lymphocytes % 20.7 Monocytes % 16.4 H Eosinophils % 7.1 H Basophils % 0.7 Absolute Neutrophils 5.7 Absolute Lymphocytes 2.2 Absolute Monocytes 1.7 H Absolute Eosinophils 0.7 H Absolute Basophils 0.1 Carbonic Acid 0.92 L 0.90 L HCO3/H2CO3 Ratio 25:1 25:1 ABG pH 7.50 H 7.50 H ABG pCO2 30.5 L 30.0 L ABG pO2 65.7 L 65.1 L ABG HCO3 23.3 22.8 ABG O2 Saturation 94.8 94.6 ABG Base Excess 0.7 0.5 FiO2 21% 21% Sodium Potassium Chloride Carbon Dioxide Anion Gap BUN Creatinine Est GFR ( Amer) Est GFR (Non-Af Amer) Glucose Calcium Magnesium Total Bilirubin AST ALT Alkaline Phosphatase Total Protein Albumin 03/03/17 05:00 WBC RBC Hgb Hct MCV MCH MCHC RDW Plt Count Seg Neutrophils % Lymphocytes % Monocytes % Eosinophils % Basophils % Absolute Neutrophils Absolute Lymphocytes Absolute Monocytes Absolute Eosinophils Absolute Basophils Carbonic Acid HCO3/H2CO3 Ratio ABG pH ABG pCO2 ABG pO2 ABG HCO3 ABG O2 Saturation ABG Base Excess FiO2 Sodium 132.4 L Potassium 3.7 Chloride 100 Carbon Dioxide 22 Anion Gap 10 BUN 2 L Creatinine 0.62 Est GFR ( Amer) > 60 Est GFR (Non-Af Amer) > 60 Glucose 94 Calcium 8.4 Magnesium 1.9 Total Bilirubin 0.6 AST 33 ALT 49 Alkaline Phosphatase 94 Total Protein 6.3 Albumin 3.2 L Impressions: Acute Abdomen Series 02/27/17 21:06 IMPRESSION: NO RADIOGRAPHIC EVIDENCE FOR ACUTE ABDOMINAL DISEASE. Abdomen/Pelvis CT 02/28/17 00:00 IMPRESSION: Discontinuous colonic bowel wall thickening and mild-moderate mesenteric/retroperitoneal lymphadenopathy. Differential diagnosis includes infectious, inflammatory, and neoplastic etiologies. No suspicious interval change compared with prior exam, 08/05/2015. KUB X-Ray 03/01/17 00:00 IMPRESSION: NG tube has been placed as described. Assessment & Plan - Diagnosis (1) Anemia associated with acute blood loss Is this a current diagnosis for this admission?: Yes Plan: stable (2) Hyponatremia Is this a current diagnosis for this admission?: Yes Plan: Labs- All tests 24 hr 02/27/17 02/28/17 02/28/17 22:50 03:50 11:18 Sodium 116.7 L* 115.7 L* 125.8 L (3) Upper GI bleed Is this a current diagnosis for this admission?: Yes Plan: s/p EGD (4) Tobacco abuse Is this a current diagnosis for this admission?: Yes (5) Alcohol abuse Is this a current diagnosis for this admission?: Yes (6) COPD (chronic obstructive pulmonary disease) Qualifiers: COPD type: COPD with acute exacerbation Qualified Code(s): J44.1 - Chronic obstructive pulmonary disease with (acute) exacerbation Is this a current diagnosis for this admission?: Yes Plan: Respiratory rate, minute ventilation, FiO2, airway pressures suggest successful extubation will proceed with extubation - Time Total Critical Time (Minutes): 55
--- NOTE | 2017-03-04 17:49 | PDOC PROGRESS REPORT ---
Subjective Progress Note for:: 03/04/17 Subjective:: 24 hours status post extubation Reason For Visit: HYPONATREMIA, NAUSEA C VOMITING Physical Exam Vital Signs: Temp Pulse Resp BP Pulse Ox 98.8 F 84 26 H 143/88 H 100 03/04/17 08:00 03/04/17 08:42 03/04/17 08:42 03/04/17 08:00 03/04/17 08:42 Intake & Output 03/03/17 03/04/17 03/05/17 06:59 06:59 06:59 Intake Total 2900 2896 Output Total 2665 2350 75 Balance 235 546 -75 Weight 80.7 kg General appearance: PRESENT: no acute distress, disheveled, obese. ABSENT: cooperative, mild distress, morbidly obese, severe distress Head exam: PRESENT: atraumatic, normocephalic Eye exam: PRESENT: conjunctiva pale, EOMI. ABSENT: conjunctival injection, conjunctiva pink, nystagmus, periorbital swelling, scleral icterus Mouth exam: PRESENT: moist, neck supple, tongue midline. ABSENT: dry mucosa, laceration Neck exam: ABSENT: carotid bruit, JVD, lymphadenopathy, thyromegaly, tracheal deviation, tracheostomy Respiratory exam: PRESENT: decreased breath sounds, prolonged expiratory phas, rhonchi, symmetrical, wheezes. ABSENT: accessory muscle use, chest wall tenderness, clear to auscultation temo, crackles, rales, retraction, stridor, tachypnea Cardiovascular exam: PRESENT: RRR, +S1, +S2 Pulses: PRESENT: normal radial pulses GI/Abdominal exam: PRESENT: diminished bowel sounds, soft Extremities exam: ABSENT: clubbing, joint swelling Musculoskeletal exam: ABSENT: ambulatory, deformity, dislocation Neurological exam: PRESENT: awake. ABSENT: alert, altered Skin exam: PRESENT: dry, warm Results Laboratory Results: 03/04/17 04:45 03/04/17 04:45 03/04/17 03/04/17 03/04/17 04:45 04:45 04:45 WBC 12.2 H RBC 3.61 L Hgb 11.4 L Hct 33.8 L MCV 94 MCH 31.6 MCHC 33.8 RDW 13.9 Plt Count 417 Seg Neutrophils % 60.6 Lymphocytes % 16.4 Monocytes % 13.9 H Eosinophils % 8.1 H Basophils % 1.0 Absolute Neutrophils 7.4 Absolute Lymphocytes 2.0 Absolute Monocytes 1.7 H Absolute Eosinophils 1.0 H Absolute Basophils 0.1 Carbonic Acid 1.14 HCO3/H2CO3 Ratio 18:1 ABG pH 7.35 ABG pCO2 38.0 ABG pO2 71.5 L ABG HCO3 20.6 ABG O2 Saturation 93.8 L ABG Base Excess -4.5 FiO2 ROOM AIR Sodium 127.7 L Potassium 4.0 Chloride 98 Carbon Dioxide 20 L Anion Gap 10 BUN 3 L Creatinine 0.57 Est GFR ( Amer) > 60 Est GFR (Non-Af Amer) > 60 Glucose 104 Calcium 8.9 Magnesium 1.7 Total Bilirubin 0.7 AST 34 ALT 39 Alkaline Phosphatase 95 Total Protein 6.9 Albumin 3.4 L Impressions: Acute Abdomen Series 02/27/17 21:06 IMPRESSION: NO RADIOGRAPHIC EVIDENCE FOR ACUTE ABDOMINAL DISEASE. Abdomen/Pelvis CT 02/28/17 00:00 IMPRESSION: Discontinuous colonic bowel wall thickening and mild-moderate mesenteric/retroperitoneal lymphadenopathy. Differential diagnosis includes infectious, inflammatory, and neoplastic etiologies. No suspicious interval change compared with prior exam, 08/05/2015. KUB X-Ray 03/01/17 00:00 IMPRESSION: NG tube has been placed as described. Chest X-Ray 03/04/17 06:00 IMPRESSION: No significant change. Assessment & Plan - Diagnosis (1) Anemia associated with acute blood loss Is this a current diagnosis for this admission?: Yes Plan: stable (2) Hyponatremia Is this a current diagnosis for this admission?: Yes Plan: Labs- All tests 24 hr 02/27/17 02/28/17 02/28/17 22:50 03:50 11:18 Sodium 116.7 L* 115.7 L* 125.8 L (3) Upper GI bleed Is this a current diagnosis for this admission?: Yes (4) Tobacco abuse Is this a current diagnosis for this admission?: Yes (5) Alcohol abuse Is this a current diagnosis for this admission?: Yes (6) COPD (chronic obstructive pulmonary disease) Qualifiers: COPD type: COPD with acute exacerbation Qualified Code(s): J44.1 - Chronic obstructive pulmonary disease with (acute) exacerbation Is this a current diagnosis for this admission?: Yes Plan: Respiratory rate, minute ventilation, FiO2, airway pressures suggest successful extubation will proceed with extubation - Time Total Critical Time (Minutes): 40
[2017-03-04] MEDS: BUDESONIDE NEB 0.5 MG/2 ML AMPUL NEB SCH (20:46)
[2017-03-05] MEDS: LEVALBUTEROL HCL NEB 0.63 MG/3 ML AMPUL NEB PRN ×4 (00:20→20:15)
[2017-03-05] MEDS ORDERED: ZOLPIDEM TARTRATE 5 MG TABLET ONE (02:25)
[2017-03-05] MEDS ORDERED: ZOLPIDEM TARTRATE 5 MG TABLET PO PRN (02:29)
[2017-03-05] MEDS ORDERED: ZOLPIDEM TARTRATE 5 MG TABLET PO ONE (02:30)
[2017-03-05] MEDS: HEPARIN SOD (PORCINE) 5,000 UNIT/ML 1 ML SYRINGE SUBCUT SCH ×3 (05:33→21:47)
[2017-03-05] MEDS: DEXTROSE 5%-WATER 1000 ML 1,000 ML IV PRN ×3 (05:35→18:55)
[2017-03-05 05:45] LABS: ABSOLUTE BASOPHILS # (AUTO) 0.1 10^3/uL (0.0-0.2); ABSOLUTE LYMPHOCYTES (AUTO) 2.2 10^3/uL (0.5-4.7); ABSOLUTE NEUT (AUTO) 6.7 10^3/uL (1.7-8.2); BASOPHILS % (AUTO) 0.8 % (0-2); EOSINOPHILS % (AUTO) 8.7 % (0-6); HEMATOCRIT 33.7 % (37.9-51.0); HEMOGLOBIN 11.3 g/dL (13.5-17.0); LYMPHOCYTES % (AUTO) 18.2 % (13-45); MEAN CORPUSCULAR HEMOGLOBIN 31.3 pg (27.0-33.4); MEAN CORPUSCULAR HGB CONC 33.4 g/dL (32.0-36.0); MEAN CORPUSCULAR VOLUME 94 fl (80-97); MONOCYTES % (AUTO) 16.4 % (3-13); PLATELET COUNT 419 10^3/uL (150-450); RED CELL DISTRIBUTION WIDTH 13.8 % (11.5-14.0); SEGMENTED NEUTROPHILS % (AUTO) 55.9 % (42-78); TOTAL CELLS COUNTED % (AUTO) 100 %
[2017-03-05 05:59] LABS: ARTERIAL BLOOD BASE EXCESS -4.8 mmol/L; ARTERIAL BLOOD H2CO3 1.04 mmol/L (1.05-1.35); ARTERIAL BLOOD HCO3 19.6 mmol/L (20-26); ARTERIAL BLOOD PCO2 34.4 mmHg (35-45); ARTERIAL BLOOD PH 7.37 (7.35-7.45); ARTERIAL BLOOD PO2 111.4 mmHg (80-100); ARTERIAL BLOOD TOTAL CO2 20.7 mmol/L (23-27)
[2017-03-05 06:03] LABS: ARTERIAL BLOOD FIO2 3L
[2017-03-05 06:08] LABS: ALANINE AMINOTRANSFERASE 44 U/L (21-72); ALBUMIN 3.4 g/dL (3.5-5.0); ALKALINE PHOSPHATASE 94 U/L (38-126); ANION GAP 10 (5-19); ASPARTATE AMINO TRANSFERASE 32 U/L (17-59); BILIRUBIN,DIRECT 0.2 mg/dL (0.0-0.4); BILIRUBIN,TOTAL 0.4 mg/dL (0.2-1.3); BLOOD UREA NITROGEN 8 mg/dL (7-20); CALCIUM 9.1 mg/dL (8.4-10.2); CARBON DIOXIDE 19 mmol/L (22-30); CHLORIDE 98 mmol/L (98-107); GLUCOSE 103 mg/dL (75-110); MAGNESIUM 1.7 mg/dL (1.6-2.3); PHOSPHORUS 3.7 mg/dL (2.5-4.5); POTASSIUM 4.2 mmol/L (3.6-5.0); SODIUM 126.5 mmol/L (137-145); TOTAL PROTEIN 6.8 g/dL (6.3-8.2)
--- NOTE | 2017-03-05 07:11 | RADIOLOGY REPORT (SQ) ---
EXAM DESCRIPTION: CHEST SINGLE VIEW CLINICAL HISTORY: resp failure COMPARISON: 03/04/2017 FINDINGS: Single frontal view of the chest. After scar calcification of the aortic arch. Heart is enlarged. Right subclavian central venous catheter with tip in SVC. Leads overlie the chest. No pneumothorax or pleural effusion. Mildly prominent interstitium. Degenerative change of the glenohumeral joints. Remote left-sided rib fractures. Upper abdominal soft tissues are unremarkable. IMPRESSION: 1. No significant interval change.
[2017-03-05] MEDS: IPRATROPIUM/ALBUTEROL 0.5-2.5 MG/3 ML AMPUL NEB SCH ×3 (08:44→23:42)
[2017-03-05] MEDS: BUDESONIDE NEB 0.5 MG/2 ML AMPUL NEB SCH ×2 (08:44→20:15)
[2017-03-05] MEDS: CARVEDILOL 3.125 MG TABLET NG SCH ×2 (09:10→21:48)
[2017-03-05] MEDS: MAGNESIUM OXIDE 400 MG TABLET NG SCH ×2 (09:13→18:09)
[2017-03-05] MEDS: ASPIRIN 325 MG TABLET NG SCH (09:13)
--- NOTE | 2017-03-05 17:52 | PDOC PROGRESS REPORT ---
Subjective Progress Note for:: 03/05/17 Subjective:: Still has loose stool. Otherwise, he has no specific complaints. Reason For Visit: YAMILET MEDINA is a 66 year old male with a past medical history of Wernicke's encephalopathy, ataxia, recurrent hyponatremia with beer potomania and COPD. He presents to the emergency room with abdominal pain nausea and vomiting. Workup reveals CT abdomen pelvis with colonic thickening and scattered adenopathy and a Sodium of 116. In the emergency room he receives normal saline bolus and referred to the hospitalist for admission to ICU. He is ordered IV 3% saline and Protonix. During interview patient complains of abdominal pain with distention followed by a large bloody emesis followed by severe wheeze and respiratory distress. Patient verifies full CODE STATUS. Nurse mica layer, gastroenterology and surgery are consulted for intubation, endoscopy and IV access. He underwent EGD. 2 units of pRBCs were given. Octreotide was started. He was found to have an esophageal ulcer. He remained on Protonix. Octreotide was stopped. Physical Exam Vital Signs: Temp Pulse Resp BP Pulse Ox 99.1 F 93 25 H 124/60 97 03/05/17 11:00 03/05/17 10:00 03/05/17 11:00 03/05/17 10:00 03/05/17 11:00 Intake & Output 03/04/17 03/05/17 03/06/17 06:59 06:59 06:59 Intake Total 2896 2266 Output Total 2350 1760 100 Balance 546 506 -100 Weight 75.9 kg General appearance: PRESENT: no acute distress, well-developed, well-nourished Head exam: PRESENT: atraumatic, normocephalic Eye exam: PRESENT: EOMI, PERRLA Neck exam: ABSENT: carotid bruit, JVD, lymphadenopathy, thyromegaly Respiratory exam: PRESENT: clear to auscultation temo. ABSENT: rales, rhonchi, wheezes Cardiovascular exam: PRESENT: RRR. ABSENT: diastolic murmur, rubs, systolic murmur GI/Abdominal exam: PRESENT: normal bowel sounds, soft Neurological exam: PRESENT: alert, awake, oriented to person, oriented to place , oriented to time, CN II-XII grossly intact Psychiatric exam: PRESENT: appropriate affect, normal mood. ABSENT: homicidal ideation, suicidal ideation Skin exam: PRESENT: dry, intact, warm. ABSENT: cyanosis, rash Results Laboratory Results: 03/05/17 05:10 03/05/17 05:10 03/05/17 03/05/17 03/05/17 05:10 05:10 05:10 WBC 12.0 H RBC 3.60 L Hgb 11.3 L Hct 33.7 L MCV 94 MCH 31.3 MCHC 33.4 RDW 13.8 Plt Count 419 Seg Neutrophils % 55.9 Lymphocytes % 18.2 Monocytes % 16.4 H Eosinophils % 8.7 H Basophils % 0.8 Absolute Neutrophils 6.7 Absolute Lymphocytes 2.2 Absolute Monocytes 2.0 H Absolute Eosinophils 1.0 H Absolute Basophils 0.1 Carbonic Acid 1.04 L HCO3/H2CO3 Ratio 18:1 ABG pH 7.37 ABG pCO2 34.4 L ABG pO2 111.4 H ABG HCO3 19.6 L ABG O2 Saturation 98.0 ABG Base Excess -4.8 FiO2 3L Sodium 126.5 L Potassium 4.2 Chloride 98 Carbon Dioxide 19 L Anion Gap 10 BUN 8 Creatinine 0.70 Est GFR ( Amer) > 60 Est GFR (Non-Af Amer) > 60 Glucose 103 Calcium 9.1 Phosphorus 3.7 Magnesium 1.7 Total Bilirubin 0.4 AST 32 ALT 44 Alkaline Phosphatase 94 Total Protein 6.8 Albumin 3.4 L Impressions: Acute Abdomen Series 02/27/17 21:06 IMPRESSION: NO RADIOGRAPHIC EVIDENCE FOR ACUTE ABDOMINAL DISEASE. Abdomen/Pelvis CT 02/28/17 00:00 IMPRESSION: Discontinuous colonic bowel wall thickening and mild-moderate mesenteric/retroperitoneal lymphadenopathy. Differential diagnosis includes infectious, inflammatory, and neoplastic etiologies. No suspicious interval change compared with prior exam, 08/05/2015. KUB X-Ray 03/01/17 00:00 IMPRESSION: NG tube has been placed as described. Chest X-Ray 03/05/17 06:00 IMPRESSION: 1. No significant interval change. Assessment & Plan - Diagnosis (1) Hyponatremia Is this a current diagnosis for this admission?: Yes Plan: Multifactorial, most likely due to poor intake and increase alcohol. He is asymptomatic. Continue to monitor. (2) Alcohol abuse Is this a current diagnosis for this admission?: Yes Plan: No signs of withdrawal. Continue Ativan if needed. (3) Respiratory distress Is this a current diagnosis for this admission?: Yes Plan: He was extubated March 03. (4) COPD (chronic obstructive pulmonary disease) Qualifiers: COPD type: COPD with acute exacerbation Qualified Code(s): J44.1 - Chronic obstructive pulmonary disease with (acute) exacerbation Is this a current diagnosis for this admission?: Yes (5) Tobacco dependency Plan: Nicotine patch ordered. (6) Upper GI bleed Is this a current diagnosis for this admission?: Yes Plan: Continue with Protonix. He had a esophageal ulcer. Hemoglobin has remained stable. - Time Time Spent with patient: 25-34 minutes Medications reviewed and adjusted accordingly: Yes - Inpatient Certification Medical Necessity: Need Close Monitoring Due to Risk of Patient Decompensation
[2017-03-05] MEDS ORDERED: VANCOMYCIN HCL INJ 500 MG VIAL PO SCH (18:00)
[2017-03-05] MEDS ORDERED: METRONIDAZOLE 250 MG TABLET PO ONE (19:00)
[2017-03-05] MEDS: LORAZEPAM INJ 2 MG/1 ML VIAL IV PRN (21:47)
[2017-03-05] MEDS: METRONIDAZOLE 250 MG TABLET PO SCH (21:48)
[2017-03-06] MEDS: METRONIDAZOLE 250 MG TABLET PO SCH ×3 (05:39→21:33)
[2017-03-06] MEDS: HEPARIN SOD (PORCINE) 5,000 UNIT/ML 1 ML SYRINGE SUBCUT SCH ×3 (05:39→21:33)
[2017-03-06] MEDS: DEXTROSE 5%-WATER 1000 ML 1,000 ML IV PRN ×2 (07:36→18:04)
[2017-03-06 08:46] LABS: ANION GAP 9 (5-19); BLOOD UREA NITROGEN 9 mg/dL (7-20); CALCIUM 9.4 mg/dL (8.4-10.2); CARBON DIOXIDE 20 mmol/L (22-30); CHLORIDE 97 mmol/L (98-107); GLUCOSE 98 mg/dL (75-110); POTASSIUM 4.2 mmol/L (3.6-5.0); SODIUM 126.2 mmol/L (137-145)
[2017-03-06] MEDS: BUDESONIDE NEB 0.5 MG/2 ML AMPUL NEB SCH ×2 (08:57→20:24)
[2017-03-06] MEDS: IPRATROPIUM/ALBUTEROL 0.5-2.5 MG/3 ML AMPUL NEB SCH ×3 (08:57→23:46)
[2017-03-06] MEDS: NICOTINE 14 MG/24 HR PATCH.TD24 TD SCH (10:38)
[2017-03-06] MEDS: ASPIRIN 325 MG TABLET NG SCH (10:39)
[2017-03-06] MEDS: CARVEDILOL 3.125 MG TABLET NG SCH ×2 (10:39→21:33)
[2017-03-06] MEDS: MAGNESIUM OXIDE 400 MG TABLET NG SCH ×2 (10:40→18:00)
[2017-03-06] MEDS: LEVALBUTEROL HCL NEB 0.63 MG/3 ML AMPUL NEB PRN ×2 (13:49→20:24)
--- NOTE | 2017-03-06 17:03 | PDOC PROGRESS REPORT ---
Subjective Progress Note for:: 03/06/17 Subjective:: Still has loose stool. But feeling better today. Otherwise, he has no specific complaints. Reason For Visit: HYPONATREMIA, NAUSEA C VOMITING Physical Exam Vital Signs: Temp Pulse Resp BP Pulse Ox 98.5 F 86 20 108/66 99 03/06/17 12:27 03/06/17 14:00 03/06/17 13:49 03/06/17 12:27 03/06/17 13:49 Intake & Output 03/05/17 03/06/17 03/07/17 06:59 06:59 06:59 Intake Total 2266 2862 Output Total 1760 1800 Balance 506 1062 Weight 75.9 kg 76 kg General appearance: PRESENT: no acute distress, well-developed, well-nourished Head exam: PRESENT: atraumatic, normocephalic Eye exam: PRESENT: EOMI, PERRLA Respiratory exam: PRESENT: clear to auscultation temo, unlabored Cardiovascular exam: PRESENT: RRR. ABSENT: diastolic murmur, rubs, systolic murmur GI/Abdominal exam: PRESENT: normal bowel sounds, soft. ABSENT: diminished bowel sounds Extremities exam: PRESENT: full ROM. ABSENT: calf tenderness, clubbing, pedal edema Neurological exam: PRESENT: alert, awake, oriented to person, oriented to place , oriented to time, oriented to situation, CN II-XII grossly intact. ABSENT: motor sensory deficit Psychiatric exam: PRESENT: appropriate affect, normal mood. ABSENT: homicidal ideation, suicidal ideation Skin exam: PRESENT: dry, intact, warm. ABSENT: cyanosis, rash Results Laboratory Results: 03/05/17 05:10 03/06/17 05:20 03/06/17 05:20 Sodium 126.2 L Potassium 4.2 Chloride 97 L Carbon Dioxide 20 L Anion Gap 9 BUN 9 Creatinine 0.61 Est GFR ( Amer) > 60 Est GFR (Non-Af Amer) > 60 Glucose 98 Calcium 9.4 Impressions: Acute Abdomen Series 02/27/17 21:06 IMPRESSION: NO RADIOGRAPHIC EVIDENCE FOR ACUTE ABDOMINAL DISEASE. Abdomen/Pelvis CT 02/28/17 00:00 IMPRESSION: Discontinuous colonic bowel wall thickening and mild-moderate mesenteric/retroperitoneal lymphadenopathy. Differential diagnosis includes infectious, inflammatory, and neoplastic etiologies. No suspicious interval change compared with prior exam, 08/05/2015. KUB X-Ray 03/01/17 00:00 IMPRESSION: NG tube has been placed as described. Chest X-Ray 03/05/17 06:00 IMPRESSION: 1. No significant interval change. Assessment & Plan - Diagnosis (1) Hyponatremia Is this a current diagnosis for this admission?: Yes Plan: Multifactorial, most likely due to poor intake and increase alcohol. He is asymptomatic. Continue to monitor. (2) Alcohol abuse Is this a current diagnosis for this admission?: Yes Plan: No signs of withdrawal. Continue Ativan if needed. (3) Respiratory distress Is this a current diagnosis for this admission?: Yes Plan: He was extubated March 03. (4) COPD (chronic obstructive pulmonary disease) Qualifiers: COPD type: COPD with acute exacerbation Qualified Code(s): J44.1 - Chronic obstructive pulmonary disease with (acute) exacerbation Is this a current diagnosis for this admission?: Yes Plan: Stable (5) Tobacco dependency Plan: Nicotine patch ordered. (6) Upper GI bleed Is this a current diagnosis for this admission?: Yes Plan: Continue with Protonix. He had a esophageal ulcer. Hemoglobin has remained stable. (7) C. difficile colitis Is this a current diagnosis for this admission?: Yes Plan: Initially, he was treated with vancomycin po, but developed a rash on his torso and face. So, I will start Flagyl, because he has not completed treatment for c.diff. - Time Time Spent with patient: 15-24 minutes Anticipated discharge: SNF - Inpatient Certification Medical Necessity: Failure to Improve With Outpatient Therapy, Significant Comorbidiites Make Outpatient Treatment Too Risky
[2017-03-06] MEDS: LORAZEPAM INJ 2 MG/1 ML VIAL IV PRN (19:28)
[2017-03-07 04:23] LABS: ANION GAP 9 (5-19); BLOOD UREA NITROGEN 12 mg/dL (7-20); CALCIUM 9.1 mg/dL (8.4-10.2); CARBON DIOXIDE 19 mmol/L (22-30); CHLORIDE 98 mmol/L (98-107); GLUCOSE 107 mg/dL (75-110); POTASSIUM 4.2 mmol/L (3.6-5.0); SODIUM 126.3 mmol/L (137-145)
[2017-03-07] MEDS: DEXTROSE 5%-WATER 1000 ML 1,000 ML IV PRN ×2 (04:26→17:36)
[2017-03-07] MEDS: NORMAL SALINE INJ/PF 0.9% 10 ML SDV IV PRN ×2 (05:15→21:24)
[2017-03-07] MEDS: HEPARIN SOD (PORCINE) 5,000 UNIT/ML 1 ML SYRINGE SUBCUT SCH ×3 (05:15→21:24)
[2017-03-07] MEDS: METRONIDAZOLE 250 MG TABLET PO SCH ×3 (05:15→21:24)
[2017-03-07] MEDS: BUDESONIDE NEB 0.5 MG/2 ML AMPUL NEB SCH ×2 (08:17→20:05)
[2017-03-07] MEDS: IPRATROPIUM/ALBUTEROL 0.5-2.5 MG/3 ML AMPUL NEB SCH ×3 (08:17→23:49)
[2017-03-07] MEDS: CARVEDILOL 3.125 MG TABLET NG SCH ×2 (09:32→21:25)
[2017-03-07] MEDS: MAGNESIUM OXIDE 400 MG TABLET NG SCH ×2 (09:32→17:11)
[2017-03-07] MEDS: ASPIRIN 325 MG TABLET NG SCH (09:32)
[2017-03-07] MEDS: NICOTINE 14 MG/24 HR PATCH.TD24 TD SCH (09:32)
--- NOTE | 2017-03-07 11:47 | PDOC PROGRESS REPORT ---
Subjective Progress Note for:: 03/07/17 Subjective:: Less frequent bowel movements (Also, more formed). He wants something for sleep. Reason For Visit: HYPONATREMIA, NAUSEA C VOMITING Physical Exam Vital Signs: Temp Pulse Resp BP Pulse Ox 97.8 F 83 16 129/53 H 97 03/06/17 23:33 03/07/17 08:22 03/07/17 08:22 03/07/17 02:44 03/07/17 08:22 Intake & Output 03/06/17 03/07/17 03/08/17 06:59 06:59 06:59 Intake Total 2862 5285 Output Total 1800 1200 Balance 1062 4085 Weight 76 kg 73.3 kg General appearance: PRESENT: no acute distress, well-developed Head exam: PRESENT: atraumatic, normocephalic Eye exam: PRESENT: EOMI, PERRLA Respiratory exam: PRESENT: unlabored, wheezes Cardiovascular exam: PRESENT: RRR. ABSENT: diastolic murmur, rubs, systolic murmur GI/Abdominal exam: PRESENT: normal bowel sounds, soft. ABSENT: distended, guarding, mass, organolmegaly, rebound, tenderness Extremities exam: PRESENT: full ROM. ABSENT: calf tenderness, clubbing, pedal edema Neurological exam: PRESENT: alert, awake, oriented to person, oriented to place , oriented to time, oriented to situation, CN II-XII grossly intact. ABSENT: motor sensory deficit Psychiatric exam: PRESENT: appropriate affect, normal mood. ABSENT: homicidal ideation, suicidal ideation Skin exam: PRESENT: dry, intact, warm. ABSENT: cyanosis, rash Results Laboratory Results: 03/05/17 05:10 03/07/17 03:43 03/07/17 03:43 Sodium 126.3 L Potassium 4.2 Chloride 98 Carbon Dioxide 19 L Anion Gap 9 BUN 12 Creatinine 0.58 Est GFR ( Amer) > 60 Est GFR (Non-Af Amer) > 60 Glucose 107 Calcium 9.1 Impressions: Acute Abdomen Series 02/27/17 21:06 IMPRESSION: NO RADIOGRAPHIC EVIDENCE FOR ACUTE ABDOMINAL DISEASE. Abdomen/Pelvis CT 02/28/17 00:00 IMPRESSION: Discontinuous colonic bowel wall thickening and mild-moderate mesenteric/retroperitoneal lymphadenopathy. Differential diagnosis includes infectious, inflammatory, and neoplastic etiologies. No suspicious interval change compared with prior exam, 08/05/2015. KUB X-Ray 03/01/17 00:00 IMPRESSION: NG tube has been placed as described. Chest X-Ray 03/05/17 06:00 IMPRESSION: 1. No significant interval change. Assessment & Plan - Diagnosis (1) Hyponatremia Is this a current diagnosis for this admission?: Yes Plan: Multifactorial, most likely due to poor intake and increase alcohol. He is asymptomatic. Continue to monitor. It may be chronic. (2) Alcohol abuse Is this a current diagnosis for this admission?: Yes Plan: No signs of withdrawal. Continue Ativan if needed. (3) Respiratory distress Is this a current diagnosis for this admission?: Yes Plan: He was extubated March 03. (4) COPD (chronic obstructive pulmonary disease) Qualifiers: COPD type: COPD with acute exacerbation Qualified Code(s): J44.1 - Chronic obstructive pulmonary disease with (acute) exacerbation Is this a current diagnosis for this admission?: Yes Plan: Stable. His exacerbation resolved. Today, however wheezing was noted on exam. I will increase the frequency of his as needed the albuterol nebs. I will also start him on a 5 day course of prednisone 40 mg daily. (5) Tobacco dependency Plan: Nicotine patch ordered. (6) Upper GI bleed Is this a current diagnosis for this admission?: Yes Plan: Continue with Protonix. He had a esophageal ulcer. Hemoglobin has remained stable. (7) C. difficile colitis Is this a current diagnosis for this admission?: Yes Plan: Initially, he was treated with vancomycin po, but developed a rash on his torso and face. So, I started Flagyl, because he had not completed treatment for c.diff. His diarrhea is starting to resolve now.
[2017-03-07] MEDS: LEVALBUTEROL HCL NEB 0.63 MG/3 ML AMPUL NEB PRN ×2 (13:49→20:05)
[2017-03-07] MEDS ORDERED: PREDNISONE 20 MG TABLET PO SCH (14:00)
[2017-03-07] MEDS: ONDANSETRON HCL INJ/PF 4 MG/2 ML SDV IV PRN (23:54)
[2017-03-08] MEDS: DEXTROSE 5%-WATER 1000 ML 1,000 ML IV PRN (03:55)
[2017-03-08] MEDS: NORMAL SALINE INJ/PF 0.9% 10 ML SDV IV PRN ×2 (05:14→21:13)
[2017-03-08] MEDS: METRONIDAZOLE 250 MG TABLET PO SCH ×3 (05:14→21:12)
[2017-03-08] MEDS: HEPARIN SOD (PORCINE) 5,000 UNIT/ML 1 ML SYRINGE SUBCUT SCH ×3 (05:15→21:13)
[2017-03-08] MEDS: BUDESONIDE NEB 0.5 MG/2 ML AMPUL NEB SCH (08:21)
[2017-03-08] MEDS: IPRATROPIUM/ALBUTEROL 0.5-2.5 MG/3 ML AMPUL NEB SCH (08:21)
[2017-03-08] MEDS: CARVEDILOL 3.125 MG TABLET NG SCH (09:51)
[2017-03-08] MEDS: ASPIRIN 325 MG TABLET NG SCH (09:52)
[2017-03-08] MEDS: NICOTINE 14 MG/24 HR PATCH.TD24 TD SCH (09:52)
[2017-03-08] MEDS: MAGNESIUM OXIDE 400 MG TABLET NG SCH ×2 (09:52→17:32)
[2017-03-08] MEDS ORDERED: FAMOTIDINE 20 MG TABLET PO SCH (10:00)
[2017-03-08] MEDS: LEVALBUTEROL HCL NEB 0.63 MG/3 ML AMPUL NEB PRN (11:35)
[2017-03-08] MEDS: ONDANSETRON HCL INJ/PF 4 MG/2 ML SDV IV PRN (13:05)
[2017-03-08] MEDS ORDERED: METOCLOPRAMIDE HCL ORAL SOLN 10 MG/10 ML UDCUP PO ONE (14:53)
[2017-03-08] MEDS ORDERED: LIDOCAINE 2% VISCOUS SOLN 20 ML UDCUP PO ONE (14:53)
[2017-03-08] MEDS ORDERED: MAG HYDROX/AL HYDROX/SIMETH SUSP 30 ML UDCUP PO ONE (14:53)
[2017-03-08] MEDS ORDERED: ALBUTEROL SULFATE HFA (90 MCG/PUFF) 200 PUFF/8.5 GM MDI IH PRN (14:56)
--- NOTE | 2017-03-08 15:19 | PROGRESS NOTE E ---
Progress Note NAME: YAMILET MEDINA : 1950 AGE: 66Y DATE: 03/08/2017 ROOM: 317 SUBJECTIVE: The patient is currently lying in bed. He states that he feels better than he did yesterday. He does complain of ongoing heartburn. The patient states that he is also quite weak and would like to go to rehab. Patient denies any nausea or vomiting today, although he had an episode overnight. No shortness of breath, dizziness. No fevers, chills. The patient has been afebrile. His blood pressures have been in a good range. The patient does not voice any other concerns at this time. REVIEW OF SYSTEMS: Rest of review of systems is negative. MEDICATIONS: Medications have been reviewed. OBJECTIVE: GENERAL: The patient is a 66-year-old male who is awake, alert. He is oriented to person, place, time and situation. He does not appear to be distressed. VITAL SIGNS: As follows temperature is 98.2, pulse 77, respirations 20, blood pressure 119/57, oxygen saturation 100% on 2 liters nasal cannula. SKIN: Warm and dry. No rashes, not diaphoretic. HEENT: Pupils are equal, round and reactive to light and accommodation. Conjunctiva pink. No evidence of JVP. CARDIOVASCULAR SYSTEM: Heart is regular. There are no murmurs or rubs. CHEST: Diminished, symmetrical, unlabored. ABDOMEN: Soft, nontender, nondistended. BACK: No CVA tenderness, sacral edema. EXTREMITIES: No cyanosis, clubbing or edema. PSYCHIATRIC: Appropriate affect. Pleasant mood. DIAGNOSTICS: Lab values are as follows: Hematology obtained on 03/05/2017 WBC 12.0, hemoglobin 11.3, hematocrit 33.7, platelet count is 419,000. Chemistries obtained on 03/07/2017: Sodium is 126, potassium 4.2, chloride is 98, carbon dioxide 19, BUN 12, creatinine 0.58, glucose 107. Calcium is 9.1. IMPRESSION AND PLAN: 1. HYPONATREMIA, MOST LIKELY MULTIFOCAL AND DUE TO AN UNDERLYING [place]OM[place] WELL POOR NUTRITION. The patient's best sodium appears to be around 129. Will encourage oral intake and follow. 2. ALCOHOL DEPENDENCY, CONTINUOUS. The patient is 8 days out and has no evidence of acute withdrawal. 3. CHRONIC OBSTRUCTIVE PULMONARY DISEASE EXACERBATION. Will resume the patient's home inhalers and discontinue nebulizers and transition to a control inhaler. 4. ACUTE HYPOXEMIC RESPIRATORY FAILURE SECONDARY TO THE ABOVE. The patient is status post extubation. 5. UPPER GASTROINTESTINAL BLEED REQUIRING TRANSFUSION. The patient does have esophageal ulceration. Will give the patient a GI cocktail given his ongoing symptoms. Hemoglobin overall is stable. 6. CLOSTRIDIUM DIFFICILE COLITIS. The patient was unable to tolerate p.o. vancomycin. Will continue Flagyl but add probiotic therapy and encourage yogurt with each tray. 7. TOBACCO DEPENDENCY, CONTINUOUS. Will continue p.r.n. nicotine patch. 8. WERNICKE'S ENCEPHALOPATHY. Will continue the patient's B vitamin supplements and follow. DISPOSITION: The patient is a FULL CODE. Pending patient's symptomatology and diagnostic findings, will reevaluate in the a.m. The patient can be downgraded to a medical bed. TIME SPENT: Including assessment, plan, physical examination, patient education and review of records is 25 minutes. DICTATING PHYSICIAN: RUSH MI NP [id number] Y#: [id number] ID: [id number] JOB#: [id number] ACCT: [id number] cc: >
[2017-03-08] MEDS: LACTOBACILLUS ACIDOPHILUS 250 MG TAB PO SCH (17:32)
[2017-03-08] MEDS ORDERED: ONDANSETRON HCL INJ/PF 4 MG/2 ML SDV IV PRN (19:41)
[2017-03-08] MEDS: CARVEDILOL 6.25 MG TABLET PO SCH (21:12)
[2017-03-08] MEDS: FAMOTIDINE 20 MG TABLET PO SCH (21:12)
[2017-03-08] MEDS: TAMSULOSIN HCL 0.4 MG CAP.SR.24H PO SCH (21:12)
[2017-03-08] MEDS: FLUTICASONE/SALMETEROL DISKUS 250-50 MCG/DOSE IH SCH (21:13)
[2017-03-09] MEDS: METRONIDAZOLE 250 MG TABLET PO SCH ×3 (05:30→21:21)
[2017-03-09] MEDS: NORMAL SALINE INJ/PF 0.9% 10 ML SDV IV PRN (05:30)
[2017-03-09] MEDS: HEPARIN SOD (PORCINE) 5,000 UNIT/ML 1 ML SYRINGE SUBCUT SCH ×3 (05:30→21:20)
[2017-03-09] MEDS: LACTOBACILLUS ACIDOPHILUS 250 MG TAB PO SCH ×2 (09:17→17:53)
[2017-03-09] MEDS: MAGNESIUM OXIDE 400 MG TABLET NG SCH ×2 (09:18→17:53)
[2017-03-09] MEDS: THIAMINE HCL 100 MG TABLET PO SCH (09:18)
[2017-03-09] MEDS: FAMOTIDINE 20 MG TABLET PO SCH ×2 (09:18→21:22)
[2017-03-09] MEDS: FOLIC ACID 1 MG TABLET PO SCH (09:18)
[2017-03-09] MEDS: ASPIRIN 325 MG TABLET PO SCH (09:18)
[2017-03-09] MEDS: CARVEDILOL 6.25 MG TABLET PO SCH ×2 (09:19→21:21)
[2017-03-09] MEDS: NICOTINE 14 MG/24 HR PATCH.TD24 TD SCH (09:19)
[2017-03-09] MEDS: FLUTICASONE/SALMETEROL DISKUS 250-50 MCG/DOSE IH SCH ×2 (09:19→21:20)
[2017-03-09] MEDS ORDERED: PREDNISONE 20 MG TABLET PO SCH ×2 (10:00→12:08)
[2017-03-09] MEDS ORDERED: ONDANSETRON 4 MG TAB.RAPDIS PO PRN (12:17)
[2017-03-09] MEDS ORDERED: LORAZEPAM 0.5 MG TABLET PO ONE (15:00)
--- NOTE | 2017-03-09 15:29 | PROGRESS NOTE E ---
Progress Note NAME: YAMILET MEDINA : 1950 AGE: 66Y DATE: 03/09/2017 ROOM: 317 SUBJECTIVE: The patient is currently lying in bed. He states that he feels better today than yesterday. He denies any further nausea, vomiting. He denies any shortness of breath, dizziness, chest pain. No fevers, chills. Patient has been afebrile. Blood pressure has been in a good range. The patient voices that he would like to go to rehab to work on getting stronger, and the patient does not voice any other concerns at this time. REVIEW OF SYSTEMS: Rest of review of systems is negative. MEDICATIONS: Medications have been reviewed. OBJECTIVE: GENERAL: The patient is a 66-year-old male who is awake, alert and oriented to person, place, time and situation. He is verbal and conversational, does not appear to be in any acute distress. VITAL SIGNS ARE FOLLOWS: Temperature is 97.4. Pulse 88. Respirations 22. Blood pressure is 122/78. Oxygen saturation 96% on 1 L nasal cannula. SKIN: Warm and dry. No rash. He is not diaphoretic. HEENT: Pupils equal, round and reactive to light and accommodation. Conjunctivae are pink. NECK: There is no evidence of JVP. CARDIOVASCULAR SYSTEM: Heart is regular. There is no murmur or rub. CHEST: Clear, symmetrical, unlabored. ABDOMEN: Soft, nontender, nondistended. BACK: No CVA tenderness or sacral edema. EXTREMITIES: No clubbing, cyanosis, edema. PSYCHIATRIC: Appropriate affect. Pleasant mood. DIAGNOSTICS: Lab values are as follows. Hematology obtained on 03/05/2017: WBCs are 12.0; hemoglobin is 11.5; hematocrit is 38.7; platelet count is 419,000. Chemistry obtained on 03/07/2017: Sodium is 129, potassium is 4.2, chloride is 98, carbon dioxide 19. BUN 12, creatinine 0.51, glucose 107. Calcium is 9.1. IMPRESSION AND PLAN: 1. HYPONATREMIA, MOST LIKELY MULTIFOCAL, DUE TO UNDERLYING [place] WELL POOR NUTRITIONAL INTAKE. It appears the patient's best sodium, even in previous encounters, was 129, so the patient is basically at baseline. Will free water restrict and encourage adequate nutrition and follow. 2. ALCOHOL DEPENDENCY, CONTINUOUS. This is day nine, and the patient has not had any withdrawals. 3. CHRONIC OBSTRUCTIVE PULMONARY DISEASE EXACERBATION. Continue the patient's home inhalers as well as a control inhaler. 4. [id number] HYPOXEMIC RESPIRATORY FAILURE SECONDARY TO THE ABOVE. The patient is status post extubation. 5. UPPER GI BLEED REQUIRING TRANSFUSION. The patient did have esophageal ulcerations. The patient overall is improved and hemoglobin stable. 6. CLOSTRIDIUM DIFFICILE COLITIS. The patient was unable to tolerate oral vancomycin. He continues on Flagyl and probiotic therapy with yogurt on each tray. 7. WERNICKE'S ENCEPHALOPATHY. Will continue to supplement the patient's B vitamins and follow. 8. TOBACCO DEPENDENCY, CONTINUOUS. Continue p.r.n. nicotine patch. DISPOSITION: The patient is a FULL CODE. Pending patient's symptomatology and diagnostic findings, I will reevaluate in the a.m. TIME SPENT: Time spent on this followup including assessment, plan, physical examination, patient education, review of records, family meeting is 25 minutes. DICTATING PHYSICIAN: RUSH MI NP [id number] PHY#: [id number] ID: [id number] JOB#: [id number] ACCT: [id number] cc: >
[2017-03-09] MEDS: TAMSULOSIN HCL 0.4 MG CAP.SR.24H PO SCH (21:20)
[2017-03-09] MEDS: LORAZEPAM 0.5 MG TABLET PO SCH (21:21)
[2017-03-10] MEDS: HEPARIN SOD (PORCINE) 5,000 UNIT/ML 1 ML SYRINGE SUBCUT SCH ×3 (06:14→21:13)
[2017-03-10] MEDS: METRONIDAZOLE 250 MG TABLET PO SCH ×3 (06:14→21:13)
[2017-03-10 07:08] LABS: HEMATOCRIT 32.6 % (37.9-51.0); MEAN CORPUSCULAR HEMOGLOBIN 31.6 pg (27.0-33.4); MEAN CORPUSCULAR HGB CONC 33.9 g/dL (32.0-36.0); MEAN CORPUSCULAR VOLUME 93 fl (80-97); PLATELET COUNT 542 10^3/uL (150-450); RED BLOOD COUNT 3.49 10^6/uL (4.35-5.55); RED CELL DISTRIBUTION WIDTH 13.5 % (11.5-14.0); WHITE BLOOD COUNT 13.1 10^3/uL (4.0-10.5)
[2017-03-10 07:24] LABS: ANION GAP 5 (5-19); BLOOD UREA NITROGEN 18 mg/dL (7-20); CALCIUM 9.6 mg/dL (8.4-10.2); CARBON DIOXIDE 28 mmol/L (22-30); CHLORIDE 102 mmol/L (98-107); GLUCOSE 80 mg/dL (75-110); MAGNESIUM 2.1 mg/dL (1.6-2.3); POTASSIUM 4.3 mmol/L (3.6-5.0); SODIUM 134.5 mmol/L (137-145)
[2017-03-10] MEDS: THIAMINE HCL 100 MG TABLET PO SCH (09:08)
[2017-03-10] MEDS: LACTOBACILLUS ACIDOPHILUS 250 MG TAB PO SCH ×2 (09:08→17:16)
[2017-03-10] MEDS: ASPIRIN 325 MG TABLET PO SCH (09:08)
[2017-03-10] MEDS: FOLIC ACID 1 MG TABLET PO SCH (09:09)
[2017-03-10] MEDS: CARVEDILOL 6.25 MG TABLET PO SCH ×2 (09:09→21:13)
[2017-03-10] MEDS: FAMOTIDINE 20 MG TABLET PO SCH ×2 (09:09→21:13)
[2017-03-10] MEDS: NICOTINE 14 MG/24 HR PATCH.TD24 TD SCH (09:10)
[2017-03-10] MEDS: MAGNESIUM OXIDE 400 MG TABLET NG SCH ×2 (09:10→17:16)
[2017-03-10] MEDS: FLUTICASONE/SALMETEROL DISKUS 250-50 MCG/DOSE IH SCH ×2 (09:14→21:27)
--- NOTE | 2017-03-10 15:09 | PROGRESS NOTE E ---
Progress Note NAME: YAMILET MEDINA : 1950 AGE: 66Y DATE: 03/10/2017 ROOM: 317 SUBJECTIVE: The patient is currently lying in bed. The patient states that he overall feels better today in comparison to his entire stay. The patient states that his appetite has improved, and he has had no further diarrhea. The patient denies any shortness of breath, dizziness, chest pain. No fevers, chills. Patient has been afebrile. Blood pressure has been in a good range, and the patient does not voice any other concerns at this time. BRIEF HISTORY: The patient is a 66-year-old male who is well known to the hospitalist service. The patient presented to the emergency department with a chief complaint of nausea and vomiting and with findings of subsequent hyponatremia. The patient has a long history of beer potomania and does have associated Wernicke's encephalopathy. During the patient's course, he was found to have GI bleed requiring transfusion and after endoscopic procedure was found to have an esophageal ulceration. The patient is currently awaiting rehab placement. REVIEW OF SYSTEMS: Rest of review of systems is negative. MEDICATIONS: Medications have been reviewed. OBJECTIVE: GENERAL: The patient is a 66-year-old male who is awake, alert. He is oriented to person, place, time and situation. He is verbal, conversational, does not appear to be in any acute distress. VITAL SIGNS FOLLOWS: Temperature is 98.7. Pulse 76. Respirations 16. Blood pressure is 121/62. Oxygen saturation is 100% on 1 L nasal cannula. SKIN: Warm and dry. No rash. He is not diaphoretic. HEENT: Pupils equal, round and reactive to light and accommodation. Conjunctivae are pink. NECK: There is no evidence of JVP. CARDIOVASCULAR SYSTEM: Heart is regular. There is no murmur or rub. CHEST: Clear, symmetrical, unlabored. ABDOMEN: Soft, nontender, nondistended. BACK: No CVA tenderness or sacral edema. EXTREMITIES: No clubbing, cyanosis, edema. PSYCHIATRIC: Appropriate affect. Pleasant mood. DIAGNOSTICS: Lab values are as follows. Hematology obtained on 03/10/2017: WBCs are 13.1. Hemoglobin is 11.0. Hematocrit is 32.6. Platelet count is 542,000. Chemistry obtained on 03/10/2017: Sodium is 134, potassium 4.3, chloride is 102, carbon dioxide 28. BUN 18, creatinine is 0.66, glucose 80. Calcium is 9.6. Magnesium is 2.1. IMPRESSION AND PLAN: 1. HYPONATREMIA, MULTIFOCAL AND DUE TO UNDERLYING POTOMANIA WELL HIS POOR NUTRITIONAL INTAKE. The patient's sodium has improved with diet alone. The patient's in the past highest sodium was 129. However, the patient has not been getting IV fluids, only a liberalized diet, and has improved to 134. 2. ALCOHOL DEPENDENCY, CONTINUOUS. This is day #10, and the patient has not had any evidence of withdrawal. 3. CHRONIC OBSTRUCTIVE PULMONARY DISEASE EXACERBATION. Continue home chronic inhalers as well as a control inhaler. The patient's steroids will stop tomorrow. The patient has been transitioned to room air. 4. [id number] HYPOXEMIC RESPIRATORY FAILURE SECONDARY TO THE ABOVE. The patient is status post extubation. 5. UPPER GI BLEED REQUIRING TRANSFUSION DUE TO ESOPHAGEAL ULCERATIONS. The patient overall has improved. Continue reflux agents. Follow. 6. CLOSTRIDIUM DIFFICILE COLITIS. The patient could not tolerate oral vancomycin. Continues on Flagyl, probiotic therapy, and is now asymptomatic. 7. WERNICKE'S ENCEPHALOPATHY. The patient is at baseline. Continue to supplement B vitamins. 8. TOBACCO DEPENDENCY, CONTINUOUS. Will continue p.r.n. nicotine patch. DISPOSITION: The patient is a FULL CODE. Pending patient's symptomatology and diagnostic findings, will reevaluate in the a.m. TIME SPENT: Time spent on this followup including assessment, plan, physical examination, patient education, and review of records is 25 minutes. DICTATING PHYSICIAN: [place] NP [id number] PHY#: [id number] ID: [id number] JOB#: [id number] ACCT: [id number] cc: >
[2017-03-10] MEDS: NORMAL SALINE INJ/PF 0.9% 10 ML SDV IV PRN (21:13)
[2017-03-10] MEDS: LORAZEPAM 0.5 MG TABLET PO SCH (21:13)
[2017-03-10] MEDS: TAMSULOSIN HCL 0.4 MG CAP.SR.24H PO SCH (21:27)
[2017-03-11] MEDS: NORMAL SALINE INJ/PF 0.9% 10 ML SDV IV PRN (05:32)
[2017-03-11] MEDS: METRONIDAZOLE 250 MG TABLET PO SCH ×2 (05:32→14:40)
[2017-03-11] MEDS: HEPARIN SOD (PORCINE) 5,000 UNIT/ML 1 ML SYRINGE SUBCUT SCH ×2 (05:32→14:40)
[2017-03-11] MEDS ORDERED: PREDNISONE 20 MG TABLET PO SCH (10:00)
[2017-03-11] MEDS: THIAMINE HCL 100 MG TABLET PO SCH (10:51)
[2017-03-11] MEDS: LACTOBACILLUS ACIDOPHILUS 250 MG TAB PO SCH ×2 (10:51→17:24)
[2017-03-11] MEDS: ASPIRIN 325 MG TABLET PO SCH (10:51)
[2017-03-11] MEDS: FLUTICASONE/SALMETEROL DISKUS 250-50 MCG/DOSE IH SCH (10:52)
[2017-03-11] MEDS: CARVEDILOL 6.25 MG TABLET PO SCH (10:52)
[2017-03-11] MEDS: FOLIC ACID 1 MG TABLET PO SCH (10:52)
[2017-03-11] MEDS: MAGNESIUM OXIDE 400 MG TABLET NG SCH ×2 (10:52→17:24)
[2017-03-11] MEDS: FAMOTIDINE 20 MG TABLET PO SCH (10:52)
[2017-03-11] MEDS: NICOTINE 14 MG/24 HR PATCH.TD24 TD SCH (10:53)
--- NOTE | 2017-03-11 12:13 | PDOC DISCHARGE SUMMARY ---
General - Admit/Disc Date/PCP Admission Date/Primary Care Provider: 02/28/17 02:44 Discharge Date: 03/11/17 - Discharge Diagnosis (1) Upper GI bleed Is this a current diagnosis for this admission?: Yes Summary: Resolved. He should abstain from alcohol (2) Acute blood loss anemia Is this a current diagnosis for this admission?: Yes Summary: He did have a precipitous drop in his hemoglobin within stabilized. Currently his hemoglobin is stable. This is due to his upper GI bleeding. (3) Hyponatremia Is this a current diagnosis for this admission?: Yes Summary: Secondary to beer potomania. Much improved. He should abstain from alcohol going forward to possible he should abstain from alcohol going forward if possible (4) Alcohol dependence, continuous drinking behavior Is this a current diagnosis for this admission?: Yes Summary: The patient should abstain from alcohol if possible. (5) Acute and chronic respiratory failure Is this a current diagnosis for this admission?: Yes Summary: Secondary to COPD exacerbation. Resolved. He is back to his baseline oxygen requirements (6) COPD exacerbation Is this a current diagnosis for this admission?: Yes Summary: Resolved (7) C. difficile colitis Is this a current diagnosis for this admission?: Yes Summary: Continue Flagyl for 7 more days (8) Wernickes encephalopathy Is this a current diagnosis for this admission?: Yes Summary: Continue thiamine and folic acid (9) Tobacco dependence Is this a current diagnosis for this admission?: Yes Summary: I would recommend that he quit smoking - Additional Information Resuscitation Status: Full Code Discharge Diet: Regular Discharge Activity: Activity As Tolerated, Balance Activity w/Rest, Slowly Increase Activity, Supervised Activity Prescriptions: Lorazepam [Ativan 0.5 mg Tablet] 0.5 mg PO QHS #14 tablet Home Medications: Aspirin [Aspirin 325 mg Tablet] 325 mg PO DAILY 02/28/17 Carvedilol [Coreg 6.25 mg Tablet] 6.25 mg PO Q12 02/28/17 Famotidine [Pepcid] 20 mg PO Q12 02/28/17 Fluticasone/Salmeterol [Advair 250-50 Diskus 28 dose] 1 puff IH Q12 02/28/17 Tamsulosin HCl [Flomax 0.4 mg Cap.sr] 0.4 mg PO QHS 02/28/17 Thiamine HCl [Thiamine 100 mg Tablet] 50 mg PO DAILY 02/28/17 Albuterol Sulfate [Proair HFA Inhalation Aerosol 8.5 gm MDI] 2 puff IH Q4HP PRN hfa.aer.ad 03/11/17 Folic Acid [Folvite 1 mg Tablet] 1 mg PO DAILY tablet 03/11/17 Lorazepam [Ativan 0.5 mg Tablet] 0.5 mg PO QHS #14 tablet 03/11/17 Magnesium Oxide [Mag-Ox 400 mg Tablet] 400 mg NG BID tablet 03/11/17 Metronidazole [Flagyl 250 mg Tablet] 250 mg PO Q8 tablet 03/11/17 Nicotine [Nicoderm 14 mg/24 Hr Transdermal Patch] 1 each TD DAILY patch.td24 Ondansetron [Zofran Odt 4 mg Tablet] 4 mg PO Q4HP PRN tab.rapdis 03/11/17 History of Present Illness History of Present Illness: YAMILET MEDINA is a 66 year old male He presented to the emergency room with nausea and vomiting and was found to have severe hyponatremia Hospital Course Hospital Course: The patient is a 66-year-old male who is well-known to the hospitalist service. He presented to the emergency room with nausea and vomiting. He was found to have severe hyponatremia. The patient has a long- standing history of beer put a lamar and does have associated Wernicke's encephalopathy. During the patient's hospital course he was found to be having a GI bleed. He was transfused. He had an endoscopic procedure and was found to have esophageal ulceration. Overall the patient is greatly improved. His sodium level is almost back to normal. He is significantly debilitated after this acute illness and will require subacute rehabilitation prior to going home. I was notified by the discharge planners today the patient does have a bed available. He will be transitioned to subacute rehabilitation today in stable condition. Physical Exam Vital Signs: Temp Pulse Resp BP Pulse Ox 98.5 F 76 16 137/63 H 100 03/11/17 08:03 03/11/17 08:03 03/11/17 08:03 03/11/17 08:03 03/11/17 10:28 Intake & Output 03/10/17 03/11/17 03/12/17 06:59 06:59 06:59 Intake Total 1480 1300 Output Total 400 675 Balance 1080 625 General appearance: PRESENT: no acute distress, well-developed, well-nourished Head exam: PRESENT: atraumatic, normocephalic Eye exam: PRESENT: conjunctiva pink, EOMI, PERRLA. ABSENT: scleral icterus Mouth exam: PRESENT: moist, tongue midline Respiratory exam: PRESENT: clear to auscultation temo. ABSENT: rales, rhonchi, wheezes Cardiovascular exam: PRESENT: RRR. ABSENT: diastolic murmur, rubs, systolic murmur GI/Abdominal exam: PRESENT: normal bowel sounds, soft. ABSENT: distended, guarding, mass, organolmegaly, rebound, tenderness Rectal exam: PRESENT: deferred Extremities exam: PRESENT: full ROM. ABSENT: calf tenderness, clubbing, pedal edema Neurological exam: PRESENT: alert, awake, oriented to person, oriented to place , oriented to time, oriented to situation, CN II-XII grossly intact. ABSENT: motor sensory deficit Psychiatric exam: PRESENT: appropriate affect, normal mood. ABSENT: homicidal ideation, suicidal ideation Skin exam: PRESENT: dry, intact, warm. ABSENT: cyanosis, rash Results Laboratory Results: 03/10/17 06:15 03/10/17 06:15 Impressions: Acute Abdomen Series 02/27/17 21:06 IMPRESSION: NO RADIOGRAPHIC EVIDENCE FOR ACUTE ABDOMINAL DISEASE. Abdomen/Pelvis CT 02/28/17 00:00 IMPRESSION: Discontinuous colonic bowel wall thickening and mild-moderate mesenteric/retroperitoneal lymphadenopathy. Differential diagnosis includes infectious, inflammatory, and neoplastic etiologies. No suspicious interval change compared with prior exam, 08/05/2015. KUB X-Ray 03/01/17 00:00 IMPRESSION: NG tube has been placed as described. Chest X-Ray 03/05/17 06:00 IMPRESSION: 1. No significant interval change. Qualifiers PATEINT BEING DISCHARGED WITH ANY OF THE FOLLOWING DIAGNOSIS?: No Plan Discharge Plan: He will be transitioned to subacute rehabilitation today in stable condition. Time Spent: Greater than 30 Minutes
[2017-03-11 16:38] VITALS: BP 132/69
== END 2017-03-11 17:58 | DRG 380 ==
LOC: ER 19:38 → EH 02-28 02:44 → ICU 02-28 10:07 → 3W 03-05 18:40
PROVIDERS: ADMIT Internal Medicine; ATTEND Internal Medicine
PROC: 02HV33Z Insertion of Infusion Device into Superior Vena Cava, Percutaneous Approach (ICD-10-PCS; 2017-02-28)
PROC: 0DB68ZX Excision of Stomach, Via Natural or Artificial Opening Endoscopic, Diagnostic (ICD-10-PCS; 2017-02-28)
PROC: 5A1945Z Respiratory Ventilation, 24-96 Consecutive Hours (ICD-10-PCS; 2017-02-28)
PROC: 0BH17EZ Insertion of Endotracheal Airway into Trachea, Via Natural or Artificial Opening (ICD-10-PCS; 2017-02-28)
PROC: 30233N1 Transfusion of Nonautologous Red Blood Cells into Peripheral Vein, Percutaneous Approach (ICD-10-PCS; principal; 2017-02-28 13:30)
DX: K22.11 Ulcer of esophagus with bleeding (principal); J96.21 Acute and chronic respiratory failure with hypoxia; D62 Acute posthemorrhagic anemia; E87.1 Hypo-osmolality and hyponatremia; J44.1 Chronic obstructive pulmonary disease with (acute) exacerbation; A04.72 Enterocolitis due to Clostridium difficile, not specified as recurrent; E51.2 Wernicke's encephalopathy; K29.70 Gastritis, unspecified, without bleeding; K44.9 Diaphragmatic hernia without obstruction or gangrene; F10.20 Alcohol dependence, uncomplicated; K21.9 Gastro-esophageal reflux disease without esophagitis; I10 Essential (primary) hypertension; F10.229 Alcohol dependence with intoxication, unspecified; Y90.0 Blood alcohol level of less than 20 mg/100 ml; M19.90 Unspecified osteoarthritis, unspecified site; F32.9 Major depressive disorder, single episode, unspecified; Z79.82 Long term (current) use of aspirin; Z79.899 Other long term (current) drug therapy; F17.210 Nicotine dependence, cigarettes, uncomplicated
CPT/HCPCS: 31500; 36415; 36430; 43239; 71045; 74018; 74022; 74177; 80048; 80053; 80307; 81001; 82803; 83690; 83735; 83930; 83935; 84100; 84478; 85025; 85027; 85610; 85730; 86850; 86900; 86901; 86920; 87493; 88305; 90686; 93005; 93010; 94002; 94003; 96361; 96374; 96375; 99285; C1751; G8978-GP; G8979-GP; J0171; J0330; J1170; J1642; J1644; J1940; J2060; J2250; J2270; J2354; J2405; J2704; J3370; J3411; J3475; J3490; J7030; J7040; J7050; J7060; J7512; J7614; J7620; P9016; S0119; S0164

== ENCOUNTER 2017-04-27 12:51 | Inpatient (IN) | payer MEDICARE, MEDICAID ==
--- NOTE | 2017-04-27 13:13 | ER Document Report ---
ED Respiratory Problem - General Chief Complaint: Respiratory Distress Stated Complaint: DIFFICULTY BREATHING Time Seen by Provider: 04/27/17 13:01 Notes: 66-year-old male to emergency department chief complaint shortness of breath. Patient was seen yesterday as an outpatient by EMS. Breathing treatment was given but patient refused. Patient admits to being a heavy drinker. Began having worsening shortness of breath today. EMS return. Received 3 breathing treatments. Was advised that he needs to come to the ER. States he feels weak. Does not wear oxygen. States he does not have a regular doctor. Is any chest pain but mostly just shortness of breath and weakness and a little dizzy. TRAVEL OUTSIDE OF THE [place] IN LAST 30 DAYS: No - HPI Patient complains to provider of: COPD, Cough, Short of breath Duration: Continuous - Related Data Allergies/Adverse Reactions: No Known Allergies Allergy (Verified 02/27/17 20:52) Past Medical History - General Information source: Patient - Social History Smoking Status: Current Every Day Smoker Chew tobacco use (# tins/day): No Frequency of alcohol use: Occasional Drug Abuse: None Lives with: Family Family History: Arthritis, DM, Hyperlipidemia Patient has suicidal ideation: No Patient has homicidal ideation: No - Past Medical History Cardiac Medical History: Reports: Hx Hypertension Pulmonary Medical History: Reports: Hx COPD, Hx Pneumonia Neurological Medical History: Reports: 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 Denies: Hx Seizures Endocrine Medical History: Denies: Hx Hyperthyroidism, Hx Hypothyroidism Renal/ Medical History: Denies: Hx Peritoneal Dialysis Malignancy Medical History: Reports Hx Colorectal Cancer GI Medical History: Reports: Hx Gastroesophageal Reflux Disease, Hx Colonoscopy. Denies: Hx Pancreatitis Musculoskeltal Medical History: Reports Hx Arthritis, Denies Hx Fibromyalgia, Reports Hx Musculoskeletal Deformity Skin Medical History: Reports Hx Psoriasis Psychiatric Medical History: Reports: Hx Depression Traumatic Medical History: Denies: Hx Traumatic Brain Injury Infectious Medical History: Past Surgical History: Reports: Hx Abdominal Surgery - Right hemicolectomy with ileostomy, Hx Bowel Surgery - hernia repair, Hx Colostomy - ileostomy from hernia around colon 1 yr ago, Hx Herniorrhaphy, Hx Ileostomy - Ileostomy was taken down in May 2012., Hx Orthopedic Surgery - Spinal fusion - Immunizations Immunizations up to date: Yes Hx Diphtheria, Pertussis, Tetanus Vaccination: Yes Hx Pneumococcal Vaccination: 11/11/12 Review of Systems - Review of Systems Constitutional: Weakness. denies: Fever, Malaise EENT: denies: Ear pain, Nose pain, Mouth pain Cardiovascular: denies: Chest pain, Palpitations, Heart racing Respiratory: Cough, Short of breath, Wheezing Gastrointestinal: denies: Abdominal pain, Diarrhea, Nausea, Vomiting Musculoskeletal: denies: Back pain, Muscle pain, Leg swelling, Ankle swelling Skin: denies: Dryness, Lesions, Rash Hematologic/Lymphatic: denies: Anemia, Blood clots, Easy bleeding, Easy bruising Neurological/Psychological: Weakness, Other - History of stroke. denies: Confusion, Numbness Physical Exam - Vital signs Vitals: Temp Pulse Resp BP Pulse Ox 97.7 F 83 18 159/90 H 100 04/27/17 12:57 04/27/17 12:57 04/27/17 12:57 04/27/17 12:57 04/27/17 12:57 Interpretation: Normal - General General appearance: Appears well, Alert - HEENT Head: Normocephalic, Atraumatic Eyes: Normal Pupils: PERRL - Respiratory Respiratory status: No respiratory distress Chest status: Nontender Breath sounds: Nonproductive cough, Wheezing Chest palpation: Normal - Cardiovascular Rhythm: Regular Heart sounds: Normal auscultation Murmur: No - Abdominal Inspection: Normal Distension: No distension Bowel sounds: Normal Tenderness: Nontender Organomegaly: No organomegaly - Back Back: Normal, Nontender - Extremities General upper extremity: Normal inspection, Nontender, Normal color, Normal ROM , Normal temperature. No: Edema General lower extremity: Normal inspection, Nontender, Normal color, Normal ROM , Normal temperature, Normal weight bearing. No: Edema, Richard's sign - Neurological Neuro grossly intact: Yes Cognition: Normal Orientation: AAOx4 [place] Coma Scale Eye Opening: Spontaneous [place] Coma Scale Verbal: Oriented [place] Coma Scale Motor: Obeys Commands [place] Coma Scale Total: 15 Speech: Normal Motor strength normal: LUE, RUE, LLE, RLE Sensory: Normal - Psychological Associated symptoms: Normal affect, Normal mood - Skin Skin Temperature: Warm Skin Moisture: Dry Skin Color: Normal Course - Re-evaluation Re-evalutation: 04/27/17 15:12 Patient with COPD, hyponatremia, hypoglycemia with significant wheezing. Unlikely we will be able to turn this around in the immediate time in the ER. Will call for admission at this time Hospitalist consulted. Will admit. Fluids given. Given food to eat based on sugar of 54. - Vital Signs Vital signs: Temp Pulse Resp BP Pulse Ox 97.7 F 83 18 159/90 H 100 04/27/17 12:57 04/27/17 12:57 04/27/17 12:57 04/27/17 12:57 04/27/17 12:57 - Laboratory Result Diagrams: 04/27/17 13:11 04/27/17 13:11 Laboratory results interpreted by me: 04/27/17 04/27/17 13:11 13:11 RBC 3.76 L Hgb 11.8 L Hct 34.2 L Eosinophils % 10.6 H Basophils % 2.1 H Absolute Eosinophils 1.0 H Sodium 118.4 L* Potassium 5.1 H Chloride 86 L Carbon Dioxide 20 L BUN 6 L Glucose 52 L Direct Bilirubin 0.5 H AST 76 H Alkaline Phosphatase 129 H Total Protein 8.4 H - EKG Interpretation by Co EKG shows normal: Sinus rhythm, [place], Intervals, QRS Complexes, ST-T Waves Discharge - Discharge Clinical Impression: COPD exacerbation, Hyponatremia, Hypoglycemia Condition: Good Disposition: ADMITTED INPATIENT Admitting Provider: Hospitalist - [facility] Admitted: Telemetry
[2017-04-27 13:35] LABS: ABSOLUTE BASOPHILS # (AUTO) 0.2 10^3/uL (0.0-0.2); ABSOLUTE MONOCYTES (AUTO) 1.1 10^3/uL (0.1-1.4); ABSOLUTE NEUT (AUTO) 4.4 10^3/uL (1.7-8.2); BASOPHILS % (AUTO) 2.1 % (0-2); EOSINOPHILS % (AUTO) 10.6 % (0-6); HEMATOCRIT 34.2 % (37.9-51.0); HEMOGLOBIN 11.8 g/dL (13.5-17.0); LYMPHOCYTES % (AUTO) 31.1 % (13-45); MEAN CORPUSCULAR HEMOGLOBIN 31.4 pg (27.0-33.4); MEAN CORPUSCULAR HGB CONC 34.6 g/dL (32.0-36.0); MEAN CORPUSCULAR VOLUME 91 fl (80-97); MONOCYTES % (AUTO) 11.5 % (3-13); PLATELET COUNT 414 10^3/uL (150-450); RED BLOOD COUNT 3.76 10^6/uL (4.35-5.55); RED CELL DISTRIBUTION WIDTH 13.8 % (11.5-14.0); SEGMENTED NEUTROPHILS % (AUTO) 44.7 % (42-78); TOTAL CELLS COUNTED % (AUTO) 100 %; WHITE BLOOD COUNT 9.7 10^3/uL (4.0-10.5)
[2017-04-27] MEDS ORDERED: ONDANSETRON HCL INJ/PF 4 MG/2 ML SDV ONE (13:46)
[2017-04-27 13:50] LABS: ALANINE AMINOTRANSFERASE 43 U/L (21-72); ALKALINE PHOSPHATASE 129 U/L (38-126); ANION GAP 12 (5-19); ASPARTATE AMINO TRANSFERASE 76 U/L (17-59); BILIRUBIN,DIRECT 0.5 mg/dL (0.0-0.4); BILIRUBIN,TOTAL 0.5 mg/dL (0.2-1.3); BLOOD UREA NITROGEN 6 mg/dL (7-20); CARBON DIOXIDE 20 mmol/L (22-30); CHLORIDE 86 mmol/L (98-107); GLUCOSE 52 mg/dL (75-110); POTASSIUM 5.1 mmol/L (3.6-5.0); TOTAL PROTEIN 8.4 g/dL (6.3-8.2)
--- NOTE | 2017-04-27 13:56 | RADIOLOGY REPORT (SQ) ---
EXAM DESCRIPTION: CHEST SINGLE VIEW COMPLETED DATE/TIME: 04/27/2017 1:41 pm REASON FOR STUDY: sob COMPARISON: 03/05/2017 NUMBER OF VIEWS: One view. TECHNIQUE: Single frontal radiographic view of the chest acquired. LIMITATIONS: None. FINDINGS: LUNGS AND PLEURA: No opacities, masses or pneumothorax. No pleural effusion. Attenuated bl ood vessels and flattened miguel-diaphragms. MEDIASTINUM AND HILAR STRUCTURES: No masses. Contour normal. HEART AND VASCULAR STRUCTURES: Heart normal in size. Normal vasculature. BONES: No acute findings. HARDWARE: None in the chest. OTHER: No other significant finding. IMPRESSION: COPD. NO ACUTE RADIOGRAPHIC FINDING IN THE CHEST. TECHNICAL DOCUMENTATION: JOB ID: [id number] [email or web address]- All Rights Reserved Reading location - IP/workstation name: [email or web address]
[2017-04-27 14:02] LABS: NT PRO BNP 195 pg/mL (5-900)
[2017-04-27 14:10] LABS: TROPONIN I < 0.012 ng/mL
[2017-04-27 14:18] LABS: SODIUM 118.4 mmol/L (137-145)
[2017-04-27] MEDS ORDERED: CEFTRIAXONE INJ 1000 MG VIAL IV ONE (14:54)
[2017-04-27] MEDS ORDERED: NORMAL SALINE 1000 ML 1,000 ML IV ONE (14:54)
[2017-04-27] MEDS ORDERED: ONDANSETRON HCL INJ/PF 4 MG/2 ML SDV IV ONE (15:15)
[2017-04-27] MEDS ORDERED: MAG HYDROX/AL HYDROX/SIMETH SUSP 30 ML UDCUP PO PRN (16:14)
[2017-04-27] MEDS ORDERED: ONDANSETRON HCL INJ/PF 4 MG/2 ML SDV IV PRN (16:14)
[2017-04-27] MEDS ORDERED: ACETAMINOPHEN 325 MG TABLET PO PRN (16:14)
[2017-04-27] MEDS ORDERED: MAGNESIUM HYDROXIDE SUSP 30 ML UDCUP PO PRN (16:14)
[2017-04-27] MEDS ORDERED: ALBUTEROL SULFATE 0.083% NEB 2.5 MG/3 ML AMPUL NEB PRN (16:14)
--- NOTE | 2017-04-27 16:21 | EKG REPORT ---
SEVERITY:- ABNORMAL ECG - SINUS RHYTHM PROBABLE LEFT ATRIAL ABNORMALITY PROBABLE INFERIOR INFARCT, OLD : Confirmed by: Marcelo Calle MD 27-Apr-2017 16:20:44
[2017-04-27] MEDS ORDERED: DEXTROSE 40% GEL 15 GM TUBE PO PRN ×2 (16:32)
[2017-04-27] MEDS ORDERED: GLUCAGON,HUMAN RECOMB 1 MG INJ IM PRN (16:32)
[2017-04-27] MEDS ORDERED: DEXTROSE 50%-WATER 25 GM/50 ML DISP.SYRIN IV PRN ×2 (16:32)
--- NOTE | 2017-04-27 16:37 | PDOC H&P ---
History of Present Illness Admission Date/PCP: 04/27/17 15:29 Patient complains of: Dyspnea History of Present Illness: YAMILET MYERS is a 66 year old male with a past medical history of COPD, hypertension, CVA, EtOH dependence who presents to the emergency department today with a complaint of 3 days of progressively worsening dyspnea related to allergens as well as having run out of his home medications. The patient states that he is visiting from [place] and that he ran out of his medications, he states that his daughter is shaping his Advair to him. However, he became severe of breath today he called EMS who provided him duo nebs and IV Solu- Medrol. He states that he feels slightly better but continues to feel significantly short of breath. He denies a productive cough, recent illnesses, chest pain, palpitations, abdominal pain, nausea vomiting and diarrhea. The patient does admit to drinking a sixpack of beer daily. He does report having gone through withdrawals in the past but without seizures. Evaluation in the emergency department revealed neutropenia with a sodium of 118 , potassium 5.1, tachypnea at a rate of 22 and mild hypoxia with a room air saturation of 90%. The patient is not home O2 dependent. He is referred to the hospitalist service for admission and management of hyponatremia and COPD exacerbation. Past Medical History Cardiac Medical History: Reports: Hypertension Pulmonary Medical History: Reports: Chronic Obstructive Pulmonary Disease (COPD) , Pneumonia EENT Medical History: Reports: Cataracts Neurological Medical History: Denies: Seizures Endocrine Medical History: Denies: Hyperthyroidism, Hypothyroidism Malignancy Medical History: Reports: Colorectal Cancer GI Medical History: Reports: Gastroesophageal Reflux Disease Musculoskeltal Medical History: Reports: Arthritis Denies: Fibromyalgia Skin Medical History: Reports: Psoriasis Psychiatric Medical History: Reports: Alcohol Dependency, Depression Traumatic Medical History: Denies: Traumatic Brain Injury Hematology: Reports: Anemia Denies: Hemophilia, Sickle Cell Disease Infectious Medical History: Past Surgical History Past Surgical History: Reports: Colostomy - ileostomy from hernia around colon 1 yr ago, Herniorrhaphy, Ileostomy - Ileostomy was taken down in May 2012., Orthopedic Surgery - Spinal fusion Social History Information Source: Patient Lives with: Family Smoking Status: Former Smoker Cigarettes Packs Per Day: 0.5 Number of Years Smokin Last Time Smoked: 2 months ago Frequency of Alcohol Use: Heavy Hx Recreational Drug Use: No Drugs: None Hx Prescription Drug Abuse: No - Advance Directive Resuscitation Status: Full Code Surrogate healthcare decision maker:: The patient's son, Macho Myers. [phone] Family History Family History: Arthritis, DM, Hyperlipidemia, Malignancy Parental Family History Reviewed: Yes Children Family History Reviewed: Yes Sibling(s) Family History Reviewed.: Yes Medication/Allergy Home Medications: Albuterol Sulfate [Proair HFA Inhalation Aerosol 8.5 gm MDI] 2 puff IH Q4HP PRN 04/27/17 Aspirin [Aspirin 325 mg Tablet] 325 mg PO DAILY 04/27/17 Carvedilol [Coreg 6.25 mg Tablet] 6.25 mg PO Q12 04/27/17 Famotidine [Pepcid 20 mg Tablet] 20 mg PO Q12 04/27/17 Fluticasone/Salmeterol [Advair 250-50 Diskus 14 Dose/Diskus] 1 puff IH Q12 04/27 Folic Acid [Folvite 1 mg Tablet] 1 mg PO DAILY 04/27/17 Lorazepam [Ativan 0.5 mg Tablet] 0.5 mg PO QHS 04/27/17 Magnesium Oxide [Mag-Ox 400 mg Tablet] 400 mg PO Q12 04/27/17 Nicotine [Nicoderm 14 mg/24 Hr Transdermal Patch] 1 patch TOP DAILY 04/27/17 Ondansetron HCl [Zofran 4 mg Tablet] 4 mg PO Q4HP PRN 04/27/17 Tamsulosin HCl [Flomax 0.4 mg Cap.sr] 0.4 mg PO DAILY 04/27/17 Thiamine HCl [Vitamin B-1] 50 mg PO DAILY 04/27/17 Allergies/Adverse Reactions: No Known Allergies Allergy (Verified 02/27/17 20:52) Review of Systems Constitutional: ABSENT: chills, fever(s), headache(s), weight gain, weight loss Eyes: ABSENT: visual disturbances Ears: ABSENT: hearing changes Cardiovascular: ABSENT: chest pain, dyspnea on exertion, edema, orthropnea, palpitations Respiratory: PRESENT: dyspnea. ABSENT: cough, hemoptysis Gastrointestinal: ABSENT: abdominal pain, constipation, diarrhea, hematemesis, hematochezia, nausea, vomiting Genitourinary: ABSENT: dysuria, hematuria Musculoskeletal: ABSENT: joint swelling Integumentary: ABSENT: rash, wounds Neurological: ABSENT: abnormal gait, abnormal speech, confusion, dizziness, focal weakness, syncope Psychiatric: ABSENT: anxiety, depression, homidical ideation, suicidal ideation Endocrine: ABSENT: cold intolerance, heat intolerance, polydipsia, polyuria Hematologic/Lymphatic: ABSENT: easy bleeding, easy bruising Allergic/Immunologic: PRESENT: seasonal rhinorrhea Physical Exam Vital Signs: Temp Pulse Resp BP Pulse Ox 97.7 F 83 22 H 137/78 H 96 04/27/17 12:57 04/27/17 12:57 04/27/17 15:00 04/27/17 14:02 04/27/17 15:00 General appearance: PRESENT: no acute distress, cooperative, well-developed, well-nourished, other - Overweight Head exam: PRESENT: atraumatic, normocephalic Eye exam: PRESENT: conjunctiva pink, EOMI, PERRLA. ABSENT: scleral icterus Ear exam: PRESENT: normal external ear exam Mouth exam: PRESENT: moist, tongue midline Neck exam: ABSENT: carotid bruit, JVD, lymphadenopathy, thyromegaly Respiratory exam: PRESENT: prolonged expiratory phas, symmetrical, unlabored, wheezes. ABSENT: rales, rhonchi Cardiovascular exam: PRESENT: RRR, +S1, +S2. ABSENT: diastolic murmur, rubs, systolic murmur, tachycardia Pulses: PRESENT: normal dorsalis pedis pul Vascular exam: PRESENT: normal capillary refill GI/Abdominal exam: PRESENT: normal bowel sounds, soft. ABSENT: distended, guarding, mass, organolmegaly, rebound, tenderness Rectal exam: PRESENT: deferred Extremities exam: PRESENT: full ROM. ABSENT: calf tenderness, clubbing, pedal edema Neurological exam: PRESENT: alert, awake, oriented to person, oriented to place , oriented to time, oriented to situation, CN II-XII grossly intact. ABSENT: motor sensory deficit Psychiatric exam: PRESENT: appropriate affect, normal mood. ABSENT: homicidal ideation, suicidal ideation Skin exam: PRESENT: dry, intact, warm. ABSENT: cyanosis, rash Results Impressions: Chest X-Ray 04/27/17 13:12 IMPRESSION: COPD. NO ACUTE RADIOGRAPHIC FINDING IN THE CHEST. Assessment & Plan - Diagnosis (1) COPD exacerbation Is this a current diagnosis for this admission?: Yes Plan: The patient will be admitted to the telemetry unit on continuous cardiac telemetry. He is provided scheduled and as needed nebulizer treatments. He is placed on p.o. prednisone and Mucinex. Supplemental oxygen as needed to maintain oxygen saturations greater than 90% Incentive spirometry and flutter valve to bedside. (2) Hyponatremia Is this a current diagnosis for this admission?: Yes Plan: The patient is noted to have a sodium of 118; review of previous admissions reveals similar episodes. The patient has normal mentation at this time; no evidence of acute hyponatremia. He has already received a 1 L normal saline bolus per ED. We will monitor serial BMP We will continue gentle IV fluid rehydration. (3) Hypertension Is this a current diagnosis for this admission?: Yes Plan: Home medication regiment is continued. (4) Hypoglycemia Is this a current diagnosis for this admission?: Yes Plan: The patient was incidentally noted to be hypoglycemic with a blood sugar of 51. We will place the patient on Accu-Cheks every 6 hours with hypoglycemia protocol in place. (5) Alcohol abuse Is this a current diagnosis for this admission?: Yes Plan: The patient reports a history of EtOH withdrawal without seizures. We will have Valium 2 mg p.o. every 6 hours available as needed. Communication order to nursing to be on alert for evidence of withdrawal. (6) Hyperkalemia Is this a current diagnosis for this admission?: Yes Plan: Likely will improve with IV fluids alone. We will monitor with serial BMPs. (7) Seasonal allergies Qualifiers: Allergic rhinitis trigger: pollen Qualified Code(s): J30.1 - Allergic rhinitis due to pollen Is this a current diagnosis for this admission?: Yes Plan: Flonase and Claritin. - Time Time Spent: 50 to 70 Minutes Medications reviewed and adjusted accordingly: Yes Anticipated discharge: Home Within: within 24 hours
[2017-04-27] MEDS: NORMAL SALINE 1000 ML 1,000 ML IV PRN (17:26)
[2017-04-27 17:35] LABS: ANION GAP 12 (5-19); BLOOD UREA NITROGEN 7 mg/dL (7-20); CALCIUM 9.1 mg/dL (8.4-10.2); CARBON DIOXIDE 21 mmol/L (22-30); CHLORIDE 87 mmol/L (98-107); GLUCOSE 150 mg/dL (75-110); POTASSIUM 4.9 mmol/L (3.6-5.0)
[2017-04-27 17:45] LABS: SODIUM 119.8 mmol/L (137-145)
[2017-04-27] MEDS: IPRATROPIUM/ALBUTEROL 0.5-2.5 MG/3 ML AMPUL NEB SCH (19:35)
[2017-04-27 22:38] LABS: ANION GAP 11 (5-19); BLOOD UREA NITROGEN 13 mg/dL (7-20); CALCIUM 9.2 mg/dL (8.4-10.2); CARBON DIOXIDE 23 mmol/L (22-30); CHLORIDE 89 mmol/L (98-107); GLUCOSE 165 mg/dL (75-110); POTASSIUM 4.8 mmol/L (3.6-5.0)
[2017-04-27] MEDS: GUAIFENESIN 600 MG TABLET.SA PO SCH (22:53)
[2017-04-27] MEDS: MAGNESIUM OXIDE 400 MG TABLET PO SCH (22:53)
[2017-04-27] MEDS: FAMOTIDINE 20 MG TABLET PO SCH (22:53)
[2017-04-27] MEDS: DIAZEPAM 2 MG TABLET PO PRN (22:54)
[2017-04-27] MEDS: CARVEDILOL 6.25 MG TABLET PO SCH (22:54)
[2017-04-27] MEDS: LORATADINE 10 MG TABLET PO SCH (22:54)
[2017-04-27] MEDS: HEPARIN SOD (PORCINE) 5,000 UNIT/ML 1 ML SYRINGE SUBCUT SCH (22:56)
[2017-04-28] MEDS: IPRATROPIUM/ALBUTEROL 0.5-2.5 MG/3 ML AMPUL NEB SCH ×4 (02:15→20:43)
[2017-04-28 04:56] LABS: HEMOGLOBIN 11.2 g/dL (13.5-17.0); MEAN CORPUSCULAR HEMOGLOBIN 31.8 pg (27.0-33.4); MEAN CORPUSCULAR HGB CONC 35.1 g/dL (32.0-36.0); MEAN CORPUSCULAR VOLUME 91 fl (80-97); PLATELET COUNT 378 10^3/uL (150-450); RED BLOOD COUNT 3.53 10^6/uL (4.35-5.55); RED CELL DISTRIBUTION WIDTH 13.7 % (11.5-14.0); WHITE BLOOD COUNT 4.2 10^3/uL (4.0-10.5)
[2017-04-28 05:25] LABS: ANION GAP 13 (5-19); BLOOD UREA NITROGEN 13 mg/dL (7-20); CALCIUM 8.9 mg/dL (8.4-10.2); CARBON DIOXIDE 22 mmol/L (22-30); CHLORIDE 91 mmol/L (98-107); GLUCOSE 170 mg/dL (75-110); PHOSPHORUS 2.8 mg/dL (2.5-4.5)
[2017-04-28] MEDS: HEPARIN SOD (PORCINE) 5,000 UNIT/ML 1 ML SYRINGE SUBCUT SCH ×3 (05:35→21:17)
[2017-04-28] MEDS: NORMAL SALINE 1000 ML 1,000 ML IV PRN (05:35)
[2017-04-28] MEDS ORDERED: NORMAL SALINE 1000 ML 1,000 ML IV PRN (08:20)
[2017-04-28] MEDS ORDERED: (PENDING PHARMACY ID) (Thiamine Hcl [Vitamin B-1] 50 MG) PO SCH (10:00)
[2017-04-28] MEDS: DOCUSATE SODIUM 100 MG CAPSULE PO SCH (10:05)
[2017-04-28] MEDS: PREDNISONE 20 MG TABLET PO SCH (10:05)
[2017-04-28] MEDS: CARVEDILOL 6.25 MG TABLET PO SCH (10:06)
[2017-04-28] MEDS: FOLIC ACID 1 MG TABLET PO SCH (10:06)
[2017-04-28] MEDS: GUAIFENESIN 600 MG TABLET.SA PO SCH ×2 (10:06→21:18)
[2017-04-28] MEDS: TAMSULOSIN HCL 0.4 MG CAP.SR.24H PO SCH (10:06)
[2017-04-28] MEDS: FLUTICASONE NASAL SPRAY 50 MCG/SPRY 120 SPRAY/16 GM NASL SCH (10:07)
[2017-04-28] MEDS: MAGNESIUM OXIDE 400 MG TABLET PO SCH ×2 (10:07→21:18)
[2017-04-28] MEDS: NICOTINE 14 MG/24 HR PATCH.TD24 TOP SCH (10:07)
[2017-04-28] MEDS: FAMOTIDINE 20 MG TABLET PO SCH ×2 (10:07→21:18)
--- NOTE | 2017-04-28 11:17 | PDOC PROGRESS REPORT ---
Subjective Progress Note for:: 04/28/17 Subjective:: Patient is a 66 year old male with a past medical history of COPD, hypertension , CVA, EtOH dependency who was admitted yesterday for a COPD exacerbation. He was additionally found to have a sodium of 118 which appears to be chronic. The patient is seen on morning rounds. He is found resting in bed comfortably on room air. No notable events overnight. The patient states that he continues to have a sensation of shortness of breath that is worsened with ambulation. He reports a slightly productive cough. He denies chest pain, palpitations, orthopnea, abdominal pain, nausea vomiting and diarrhea. He is offered to be discharged today but asks to "stay one more night since I haven't been able to walk yet." Reason For Visit: COPD EXACERBATION,HYPONATREMIA,ALCOHOL ABUSE Physical Exam Vital Signs: Temp Pulse Resp BP Pulse Ox 98.2 F 96 18 162/82 H 95 04/28/17 07:26 04/28/17 07:36 04/28/17 07:36 04/28/17 07:26 04/28/17 07:36 Intake & Output 04/27/17 04/28/17 04/29/17 06:59 06:59 06:59 Intake Total 1400 Output Total 900 Balance 500 Weight 74.5 kg General appearance: PRESENT: no acute distress, well-developed, well-nourished, other - Overweight Head exam: PRESENT: atraumatic, normocephalic Eye exam: PRESENT: conjunctiva pink, EOMI, PERRLA. ABSENT: scleral icterus Ear exam: PRESENT: normal external ear exam Mouth exam: PRESENT: moist, tongue midline Neck exam: ABSENT: carotid bruit, JVD, lymphadenopathy, thyromegaly Respiratory exam: PRESENT: prolonged expiratory phas, symmetrical, unlabored, wheezes - Slight end expiratory wheeze; improved from yesterday, other - Room air. ABSENT: crackles, rales, rhonchi Cardiovascular exam: PRESENT: RRR, +S1, +S2, tachycardia. ABSENT: diastolic murmur, rubs, systolic murmur Pulses: PRESENT: normal dorsalis pedis pul Vascular exam: PRESENT: normal capillary refill GI/Abdominal exam: PRESENT: normal bowel sounds, soft. ABSENT: distended, guarding, mass, organolmegaly, rebound, tenderness Rectal exam: PRESENT: deferred Extremities exam: PRESENT: full ROM. ABSENT: calf tenderness, clubbing, pedal edema Neurological exam: PRESENT: alert, awake, oriented to person, oriented to place , oriented to time, oriented to situation, CN II-XII grossly intact. ABSENT: motor sensory deficit Psychiatric exam: PRESENT: appropriate affect, normal mood. ABSENT: homicidal ideation, suicidal ideation Skin exam: PRESENT: dry, intact, warm. ABSENT: cyanosis, rash Results Laboratory Results: 04/28/17 04:13 04/28/17 04:13 04/27/17 04/27/17 04/28/17 16:42 22:16 04:13 WBC RBC Hgb Hct MCV MCH MCHC RDW Plt Count Sodium 119.8 L* 123.0 L 126.0 L Potassium 4.9 4.8 5.0 Chloride 87 L 89 L 91 L Carbon Dioxide 21 L 23 22 Anion Gap 12 11 13 BUN 7 13 13 Creatinine 0.52 0.69 0.64 Est GFR ( Amer) > 60 > 60 > 60 Est GFR (Non-Af Amer) > 60 > 60 > 60 Glucose 150 H 165 H 170 H Calcium 9.1 9.2 8.9 Phosphorus 2.8 Magnesium 1.7 04/28/17 04:13 WBC 4.2 RBC 3.53 L Hgb 11.2 L Hct 32.0 L MCV 91 MCH 31.8 MCHC 35.1 RDW 13.7 Plt Count 378 Sodium Potassium Chloride Carbon Dioxide Anion Gap BUN Creatinine Est GFR ( Amer) Est GFR (Non-Af Amer) Glucose Calcium Phosphorus Magnesium Impressions: Chest X-Ray 04/27/17 13:12 IMPRESSION: COPD. NO ACUTE RADIOGRAPHIC FINDING IN THE CHEST. Assessment & Plan - Diagnosis (1) COPD exacerbation Is this a current diagnosis for this admission?: Yes Plan: The patient has been admitted to the telemetry unit on continuous cardiac telemetry. He is provided scheduled and as needed nebulizer treatments. He is placed on p.o. prednisone and Mucinex. Supplemental oxygen as needed to maintain oxygen saturations greater than 90% Incentive spirometry and flutter valve to bedside. Encourage ambulation today. (2) Hyponatremia Is this a current diagnosis for this admission?: Yes Plan: The patient is noted to have a sodium of 118; review of previous admissions reveals similar episodes. The patient has normal mentation at this time; no evidence of acute hyponatremia. Sodium is trending upwards; have decreased normal saline to 75 mL/hour. We will monitor serial BMP (3) Hypertension Is this a current diagnosis for this admission?: Yes Plan: The patient continues to have elevated blood pressures. Will increase his Coreg to 12.5 twice daily. (4) Hypoglycemia Is this a current diagnosis for this admission?: Yes Plan: The patient was noted to be hypoglycemic in the ED with a blood sugar of 51. We will place the patient on Accu-Cheks every 6 hours with hypoglycemia protocol in place. (5) Alcohol abuse Is this a current diagnosis for this admission?: Yes Plan: The patient reports a history of EtOH withdrawal without seizures. We will have Valium 2 mg p.o. every 6 hours available as needed. Communication order to nursing to be on alert for evidence of withdrawal. (6) Hyperkalemia Is this a current diagnosis for this admission?: Yes Plan: Slight downward trend. Likely will improve with continued IV fluids alone. We will monitor with serial BMPs. (7) Seasonal allergies Qualifiers: Allergic rhinitis trigger: pollen Qualified Code(s): J30.1 - Allergic rhinitis due to pollen Is this a current diagnosis for this admission?: Yes Plan: Flonase and Claritin. - Time Time Spent with patient: 25-34 minutes Medications reviewed and adjusted accordingly: Yes Anticipated discharge: Home Within: within 24 hours
[2017-04-28 15:24] LABS: ANION GAP 8 (5-19); BLOOD UREA NITROGEN 15 mg/dL (7-20); CALCIUM 9.1 mg/dL (8.4-10.2); CARBON DIOXIDE 25 mmol/L (22-30); CHLORIDE 98 mmol/L (98-107); GLUCOSE 174 mg/dL (75-110); POTASSIUM 4.7 mmol/L (3.6-5.0); SODIUM 130.9 mmol/L (137-145)
[2017-04-28] MEDS: LORATADINE 10 MG TABLET PO SCH (21:18)
[2017-04-28] MEDS: CARVEDILOL 12.5 MG TABLET PO SCH (21:19)
[2017-04-28] MEDS: DIAZEPAM 2 MG TABLET PO PRN (21:23)
[2017-04-29] MEDS: IPRATROPIUM/ALBUTEROL 0.5-2.5 MG/3 ML AMPUL NEB SCH ×4 (01:56→19:38)
[2017-04-29] MEDS: HEPARIN SOD (PORCINE) 5,000 UNIT/ML 1 ML SYRINGE SUBCUT SCH ×3 (05:08→21:18)
[2017-04-29 05:43] LABS: ANION GAP 7 (5-19); BLOOD UREA NITROGEN 14 mg/dL (7-20); CARBON DIOXIDE 25 mmol/L (22-30); CHLORIDE 100 mmol/L (98-107); GLUCOSE 152 mg/dL (75-110); POTASSIUM 4.3 mmol/L (3.6-5.0); SODIUM 131.6 mmol/L (137-145)
--- NOTE | 2017-04-29 09:25 | Physician Advisory Note ---
Physician Advisor ProgressNote .: [facility], I have reviewed the medical record for this patient. Physician Advisor Statement: Please consider documenting, if you agree: 1. Medical necessity/status: If pt was kept a 2nd MN last PM because he was clinically needing continued hospital tx & monitoring (because still unable to ambulated without significant SOB, still frequently tachycardic, attending concerned about ), then appropriate to document explicitly the applicable reason(s) & make him Inpatient status, even if he is ok for d/c today. - However, if attending felt pt wasn't really needing 2nd MN clinically, kept for social or convenience type factors, he should not be changed to Inpatient status. Thanks for your help! CK
[2017-04-29] MEDS ORDERED: ALBUTEROL SULFATE 0.083% NEB 2.5 MG/3 ML AMPUL NEB ONE (10:15)
[2017-04-29] MEDS: FLUTICASONE NASAL SPRAY 50 MCG/SPRY 120 SPRAY/16 GM NASL SCH (10:41)
[2017-04-29] MEDS: MAGNESIUM OXIDE 400 MG TABLET PO SCH ×2 (10:41→21:19)
[2017-04-29] MEDS: CARVEDILOL 12.5 MG TABLET PO SCH ×2 (10:41→21:19)
[2017-04-29] MEDS: FAMOTIDINE 20 MG TABLET PO SCH ×2 (10:41→21:18)
[2017-04-29] MEDS: DOCUSATE SODIUM 100 MG CAPSULE PO SCH (10:41)
[2017-04-29] MEDS: PREDNISONE 20 MG TABLET PO SCH (10:42)
[2017-04-29] MEDS: FOLIC ACID 1 MG TABLET PO SCH (10:42)
[2017-04-29] MEDS: GUAIFENESIN 600 MG TABLET.SA PO SCH ×2 (10:42→21:18)
[2017-04-29] MEDS: TAMSULOSIN HCL 0.4 MG CAP.SR.24H PO SCH (10:42)
[2017-04-29] MEDS: NICOTINE 14 MG/24 HR PATCH.TD24 TOP SCH (10:42)
--- NOTE | 2017-04-29 11:28 | PDOC PROGRESS REPORT ---
Subjective Progress Note for:: 04/29/17 Subjective:: Patient is a 66 year old male with a past medical history of COPD, hypertension , CVA, EtOH dependency who was admitted yesterday for a COPD exacerbation. He was additionally found to have a sodium of 118 which appears to be chronic. The patient is seen on morning rounds. He is found resting in bed comfortably on room air. No notable events overnight. The patient states that he continues to have a sensation of shortness of breath that is worsened with ambulation; he tells me that this morning his ambulatory saturations dropped to the 70s. I personally ambulated with the patient on room air. He was found to have a oxygen saturation of 73% and an elevated heart rate while on room air. He was re-ambulated on 2 L/min with improvement of oxygenation to 88%. I increased his oxygen to 3 L/min and continued to ambulate with him maintaining oxygen saturations greater than 94% and resolution of his tachypnea. He denies chest pain, palpitations, orthopnea, abdominal pain, nausea vomiting and diarrhea. However, he states that he continues to feel unwell and is uneasy with being discharged home today. Reason For Visit: COPD EXACERBATION,HYPONATREMIA,ALCOHOL ABUSE Physical Exam Vital Signs: Temp Pulse Resp BP Pulse Ox 97.6 F 90 18 161/75 H 96 04/29/17 07:32 04/29/17 07:37 04/29/17 07:37 04/29/17 07:32 04/29/17 07:37 Intake & Output 04/28/17 04/29/17 04/30/17 06:59 06:59 06:59 Intake Total 1400 1502 Output Total 900 750 Balance 500 752 Weight 74.5 kg 74.5 kg General appearance: PRESENT: no acute distress, cooperative, well-developed, well-nourished Head exam: PRESENT: atraumatic, normocephalic Eye exam: PRESENT: conjunctiva pink, EOMI, PERRLA. ABSENT: scleral icterus Ear exam: PRESENT: normal external ear exam Mouth exam: PRESENT: moist, tongue midline Neck exam: ABSENT: carotid bruit, JVD, lymphadenopathy, thyromegaly Respiratory exam: PRESENT: prolonged expiratory phas, rhonchi, symmetrical, wheezes - Throughout, other - Patient maintains oxygen saturations while on room air; desats to 70s with ambulating short distances.. ABSENT: rales Cardiovascular exam: PRESENT: RRR, +S1, +S2, tachycardia. ABSENT: diastolic murmur, rubs, systolic murmur Pulses: PRESENT: normal dorsalis pedis pul Vascular exam: PRESENT: normal capillary refill GI/Abdominal exam: PRESENT: normal bowel sounds, soft. ABSENT: distended, guarding, mass, organolmegaly, rebound, tenderness Rectal exam: PRESENT: deferred Extremities exam: PRESENT: full ROM. ABSENT: calf tenderness, clubbing, pedal edema Neurological exam: PRESENT: alert, awake, oriented to person, oriented to place , oriented to time, oriented to situation, CN II-XII grossly intact. ABSENT: motor sensory deficit Psychiatric exam: PRESENT: appropriate affect, normal mood. ABSENT: homicidal ideation, suicidal ideation Skin exam: PRESENT: dry, intact, warm. ABSENT: cyanosis, rash Results Laboratory Results: 04/28/17 04:13 04/29/17 03:50 04/28/17 04/29/17 14:53 03:50 Sodium 130.9 L 131.6 L Potassium 4.7 4.3 Chloride 98 100 Carbon Dioxide 25 25 Anion Gap 8 7 BUN 15 14 Creatinine 0.75 0.58 Est GFR ( Amer) > 60 > 60 Est GFR (Non-Af Amer) > 60 > 60 Glucose 174 H 152 H Calcium 9.1 9.0 04/29/17 03:50 NT-Pro-B Natriuret Pep 1630 H Impressions: Chest X-Ray 04/27/17 13:12 IMPRESSION: COPD. NO ACUTE RADIOGRAPHIC FINDING IN THE CHEST. Assessment & Plan - Diagnosis (1) Acute respiratory failure with hypoxia Is this a current diagnosis for this admission?: Yes Plan: Multifactorial secondary to COPD and CHF exacerbations. The patient is admitted on continuous cardiac telemetry. He is provided supplemental oxygen as needed to maintain oxygen saturations greater than 89% The patient exceeded his observational 2-midnight stay as he continued to have significant dyspnea with ambulation. Today, pt is found to have a CHF exacerbation. He is placed in inpatient status. See remaining plan as outlined below. (2) COPD exacerbation Is this a current diagnosis for this admission?: Yes Plan: The patient has been admitted to the telemetry unit on continuous cardiac telemetry. He is provided scheduled and as needed nebulizer treatments. He is placed on p.o. prednisone and Mucinex. Supplemental oxygen as needed to maintain oxygen saturations greater than 90%; patient is unable to maintain oxygen saturations while ambulating on room air. Requires 3 L of oxygen to maintain saturations greater than 92% while ambulating. Incentive spirometry and flutter valve to bedside. (3) CHF exacerbation Qualifiers: Heart failure type: unspecified Qualified Code(s): I50.9 - Heart failure, unspecified Is this a current diagnosis for this admission?: Yes Plan: The patient is noted to have a substantial desaturation while ambulatory. Resting room air saturations are 94% decreasing to 73% while ambulatory. He did receive 3 L of IV fluids for correction of hyponatremia. He does not appear to be especially volume overloaded. However, proBNP is noted to be 1630 Will obtain CXR and echocardiogram. IVF were discontinued the previous day. He is placed on Lasix 20 mg IV twice daily. He is placed on a cardiac diet. Daily weight. Will consult patient educator. (4) Hyponatremia Is this a current diagnosis for this admission?: Yes Plan: Improved. The patient is noted to have a sodium of 118; review of previous admissions reveals similar episodes. The patient has normal mentation at this time; no evidence of acute hyponatremia. Sodium is trending upwards; IVF discontinued yesterday. We will monitor serial BMP (5) Hypertension Is this a current diagnosis for this admission?: Yes Plan: The patient continues to have elevated blood pressures. Will increase his Coreg to 12.5 twice daily. (6) Hypoglycemia Is this a current diagnosis for this admission?: Yes Plan: The patient was noted to be hypoglycemic in the ED with a blood sugar of 51. We will place the patient on Accu-Cheks every 6 hours with hypoglycemia protocol in place. Pt appears to be consistently hyperglycemic. Will check A1C with am labs. (7) Alcohol abuse Is this a current diagnosis for this admission?: Yes Plan: The patient reports a history of EtOH withdrawal without seizures. We will have Valium 2 mg p.o. every 6 hours available as needed. Communication order to nursing to be on alert for evidence of withdrawal; today is day 3 of admission. We will be especially vigilant of mental status changes. (8) Hyperkalemia Is this a current diagnosis for this admission?: Yes Plan: Resolved. We will monitor with serial BMPs. (9) Seasonal allergies Qualifiers: Allergic rhinitis trigger: pollen Qualified Code(s): J30.1 - Allergic rhinitis due to pollen Is this a current diagnosis for this admission?: Yes Plan: Flonase and Claritin. - Time Time Spent with patient: 35 or more minutes Medications reviewed and adjusted accordingly: Yes Within: within 24 hours, within 48 hours - Inpatient Certification Based on my medical assessment, after consideration of the patient's comorbidities, presenting symptoms, or acuity I expect that the services needed warrant INPATIENT care.: Yes I certify that my determination is in accordance with my understanding of Medicare's requirements for reasonable and necessary INPATIENT services [42 CFR 412.3e].: Yes Medical Necessity: Need Close Monitoring Due to Risk of Patient Decompensation, Need For Continuous Telemetry Monitoring, Need for Nebulizer Therapy and Monitoring of Response
--- NOTE | 2017-04-29 11:39 | RADIOLOGY REPORT (SQ) ---
EXAM DESCRIPTION: CHEST SINGLE VIEW COMPLETED DATE/TIME: 04/29/2017 11:31 am REASON FOR STUDY: dyspnea, hypoxia COMPARISON: 04/27/2017 EXAM PARAMETERS: NUMBER OF VIEWS: One view. TECHNIQUE: Single frontal radiographic view of the chest acquired. RADIATION DOSE: NA LIMITATIONS: None. FINDINGS: LUNGS AND PLEURA: No opacities, masses or pneumothorax. No pleural effusion. Again there is evidence for obstructive lung disease. MEDIASTINUM AND HILAR STRUCTURES: No masses. Contour normal. HEART AND VASCULAR STRUCTURES: Heart normal in size. Normal vasculature. BONES: No acute findings. HARDWARE: None in the chest. OTHER: No other significant finding. IMPRESSION: No significant interval change. No acute findings. Obstructive lung disease. Other fi ndings as noted above TECHNICAL DOCUMENTATION: JOB ID: [id number] [employer]- All Rights Reserved Reading location - IP/workstation name: [email or web address]
--- NOTE | 2017-04-29 19:22 | XCELERA REPORT ---
[address] [address] Transthoracic Echocardiogram Report Name: YAMILET MEDINA Age: 66 yrs Gender: Male : 1950 Patient Status: Inpatient Patient Location: [address] [place], [place] [address] Study Date: 04/29/2017 02:05 PM Height: 65 in Weight: 164 lb BSA: 1.8 m2 Procedure: A complete two-dimensional transthoracic echocardiogram was performed (2D, M-mode, spectral and color flow Doppler). The study was technically adequate with some images being suboptimal in quality. Reason For Study: CHF exacerbation Ordering Physician: DELANEY PEACEC Performed By: Marina Guerrero Interpretation Summary The left ventricular ejection fraction is normal. There is borderline concentric left ventricular hypertrophy. Doppler measurements suggest pseudonormalized left ventricular relaxation, which is associated with grade II/IV or mild to moderate diastolic dysfunction Wall motion cannot be accurately commented on, but no definite regional wall motion abnormalities noted. The left ventricle is grossly normal size. The right ventricle is mildly dilated. Borderline right atrial enlargement. Borderline left atrial enlargement. There is a trace amount of mitral regurgitation There is no mitral valve stenosis. There is a mild amount of aortic regurgitation There is no aortic valve stenosis There is a mild amount of tricuspid regurgitation There is mild pulmonary hypertension by echo Best estimated RVSP is approximately 40 mmhg mm/Hg. There is no pericardial effusion. MMode/2D Measurements & Calculations RVDd: 3.5 cm LVIDd: 4.0 cm FS: 41.7 % Ao root diam: 2.7 cm IVSd: 1.0 cm LVIDs: 2.4 cm EDV(Teich): 72.1 ml LVPWd: 1.1 cm ESV(Teich): 19.3 ml Ao root area: 5.9 cm2 EF(Teich): 73.2 % LA dimension: 3.6 cm Doppler Measurements & Calculations MV E max patricia: MV P1/2t max patricia: Ao V2 max: AI max patricia: 125.9 cm/sec 125.9 cm/sec 153.8 cm/sec 433.0 cm/sec MV A max patricia: MV P1/2t: 56.1 msec Ao max PG: AI max P.4 cm/sec 9.5 mmHg 75.0 mmHg MV E/A: 1.4 MVA(P1/2t): 3.9 cm2 AI dec slope: MV dec slope: 656.8 cm/sec2 240.5 cm/sec2 MV dec time: AI P1/2t: 0.20 sec 527.4 msec LV V1 max PG: PA V2 max: TR max patricia: 6.1 mmHg 84.9 cm/sec 295.9 cm/sec LV V1 max: PA max P.9 mmHg TR max P.9 cm/sec 35.0 mmHg Left Ventricle The left ventricle is grossly normal size. There is borderline concentric left ventricular hypertrophy. The left ventricular ejection fraction is normal. Doppler measurements suggest pseudonormalized left ventricular relaxation, which is associated with grade II/IV or mild to moderate diastolic dysfunction. Wall motion cannot be accurately commented on, but no definite regional wall motion abnormalities noted. Right Ventricle The right ventricle is mildly dilated. There is normal right ventricular wall thickness. The right ventricular systolic function is normal. Atria Borderline right atrial enlargement. Borderline left atrial enlargement. Interarterial septum not well visualized and not well dopplered. Cannot comment on ASD/PFO presence. Mitral Valve The mitral valve is grossly normal. There is no mitral valve stenosis. There is a trace amount of mitral regurgitation. Aortic Valve The aortic valve is not well visualized secondary to technical limitations. There is no aortic valve stenosis. There is a mild amount of aortic regurgitation. Tricuspid Valve The tricuspid valve is not well visualized, but is grossly normal. There is no tricuspid stenosis. There is a mild amount of tricuspid regurgitation. There is mild pulmonary hypertension by echo. Best estimated RVSP is approximately 40 mmhg mm/Hg. Pulmonic Valve The pulmonic valve is not well visualized. Great Vessels The aortic root is not well visualized but is probably normal size. The inferior vena cava appeared normal and decreased > 50% with respiration (RAP 5-10 mmHg). Effusions There is no pericardial effusion. : JAVON PEACE > Zuri Sharma
[2017-04-29] MEDS: LORATADINE 10 MG TABLET PO SCH (21:18)
[2017-04-29] MEDS: FUROSEMIDE INJ/PF 20 MG/2 ML SDV IV SCH (21:18)
[2017-04-29] MEDS: DIAZEPAM 2 MG TABLET PO PRN (21:24)
[2017-04-30] MEDS: IPRATROPIUM/ALBUTEROL 0.5-2.5 MG/3 ML AMPUL NEB SCH ×4 (02:15→19:37)
[2017-04-30] MEDS: HEPARIN SOD (PORCINE) 5,000 UNIT/ML 1 ML SYRINGE SUBCUT SCH ×3 (05:16→21:29)
[2017-04-30 05:42] LABS: HEMATOCRIT 30.5 % (37.9-51.0); HEMOGLOBIN 10.1 g/dL (13.5-17.0); MEAN CORPUSCULAR HEMOGLOBIN 30.6 pg (27.0-33.4); MEAN CORPUSCULAR VOLUME 93 fl (80-97); PLATELET COUNT 298 10^3/uL (150-450); RED BLOOD COUNT 3.29 10^6/uL (4.35-5.55); RED CELL DISTRIBUTION WIDTH 14.2 % (11.5-14.0)
[2017-04-30 05:44] LABS: WHITE BLOOD COUNT 11.7 10^3/uL (4.0-10.5)
[2017-04-30 06:17] LABS: ALANINE AMINOTRANSFERASE 50 U/L (21-72); ALBUMIN 3.5 g/dL (3.5-5.0); ALKALINE PHOSPHATASE 89 U/L (38-126); ANION GAP 7 (5-19); ASPARTATE AMINO TRANSFERASE 55 U/L (17-59); BILIRUBIN,DIRECT 0.3 mg/dL (0.0-0.4); BILIRUBIN,TOTAL 0.3 mg/dL (0.2-1.3); BLOOD UREA NITROGEN 16 mg/dL (7-20); CARBON DIOXIDE 27 mmol/L (22-30); CHLORIDE 101 mmol/L (98-107); GLUCOSE 75 mg/dL (75-110); POTASSIUM 4.2 mmol/L (3.6-5.0); SODIUM 135.2 mmol/L (137-145); TOTAL PROTEIN 7.7 g/dL (6.3-8.2)
[2017-04-30] MEDS: DIAZEPAM 2 MG TABLET PO PRN ×2 (06:24→21:37)
[2017-04-30] MEDS: DOCUSATE SODIUM 100 MG CAPSULE PO SCH (09:09)
[2017-04-30] MEDS: FLUTICASONE NASAL SPRAY 50 MCG/SPRY 120 SPRAY/16 GM NASL SCH (09:09)
[2017-04-30] MEDS: PREDNISONE 20 MG TABLET PO SCH (09:10)
[2017-04-30] MEDS: FOLIC ACID 1 MG TABLET PO SCH (09:10)
[2017-04-30] MEDS: CARVEDILOL 12.5 MG TABLET PO SCH ×2 (09:10→21:30)
[2017-04-30] MEDS: FAMOTIDINE 20 MG TABLET PO SCH ×2 (09:11→21:29)
[2017-04-30] MEDS: TAMSULOSIN HCL 0.4 MG CAP.SR.24H PO SCH (09:11)
[2017-04-30] MEDS: GUAIFENESIN 600 MG TABLET.SA PO SCH ×2 (09:11→21:29)
[2017-04-30] MEDS: MAGNESIUM OXIDE 400 MG TABLET PO SCH ×2 (09:12→21:29)
[2017-04-30] MEDS: FUROSEMIDE INJ/PF 20 MG/2 ML SDV IV SCH ×2 (09:13→21:29)
[2017-04-30] MEDS: NICOTINE 14 MG/24 HR PATCH.TD24 TOP SCH (09:13)
[2017-04-30] MEDS: OXYCODONE-ACETAMINOPHEN 5-325 MG TABLET PO PRN ×2 (09:15→18:10)
--- NOTE | 2017-04-30 13:04 | PDOC PROGRESS REPORT ---
Subjective Progress Note for:: 04/30/17 Subjective:: This patient was admitted COPD exacerbation and was found to have a sodium of 118 which apparently is chronic although etiology unclear. Has been hypoxemic but denies any chest pain palpitations nausea vomiting. He says he is feeling better today. He is still on oxygen and saturation appears to have improved to 9 9% on 2 L. Two-dimensional echocardiogram revealed ejection fraction to be normal and grade 2 mild to moderate diastolic dysfunction Reason For Visit: COPD EXACERBATION,CHG EXACERBATION,HYPONATREMIA Physical Exam Vital Signs: Temp Pulse Resp BP Pulse Ox 97.8 F 77 20 134/71 H 99 04/30/17 11:06 04/30/17 11:06 04/30/17 11:06 04/30/17 11:06 04/30/17 11:06 Intake & Output 04/29/17 04/30/17 05/01/17 06:59 06:59 06:59 Intake Total 591 Balance 591 Weight 75.7 kg General appearance: PRESENT: no acute distress Head exam: PRESENT: atraumatic Eye exam: PRESENT: conjunctiva pink, EOMI, PERRLA. ABSENT: scleral icterus Respiratory exam: PRESENT: clear to auscultation temo, wheezes - scattered. ABSENT: rales, rhonchi Cardiovascular exam: PRESENT: RRR. ABSENT: diastolic murmur, rubs, systolic murmur Pulses: PRESENT: normal dorsalis pedis pul GI/Abdominal exam: PRESENT: normal bowel sounds, soft. ABSENT: distended, guarding, mass, organolmegaly, rebound, tenderness Rectal exam: PRESENT: deferred Extremities exam: PRESENT: full ROM. ABSENT: calf tenderness, clubbing, pedal edema Musculoskeletal exam: PRESENT: ambulatory Neurological exam: PRESENT: alert, awake, oriented to person, oriented to place , oriented to time, oriented to situation, CN II-XII grossly intact. ABSENT: motor sensory deficit Results Laboratory Results: 04/30/17 05:21 04/30/17 05:21 04/30/17 04/30/17 05:21 05:21 WBC 11.7 H D RBC 3.29 L Hgb 10.1 L Hct 30.5 L MCV 93 MCH 30.6 MCHC 33.0 RDW 14.2 H Plt Count 298 Sodium 135.2 L Potassium 4.2 Chloride 101 Carbon Dioxide 27 Anion Gap 7 BUN 16 Creatinine 0.63 Est GFR ( Amer) > 60 Est GFR (Non-Af Amer) > 60 Glucose 75 Calcium 9.0 Total Bilirubin 0.3 AST 55 ALT 50 Alkaline Phosphatase 89 Total Protein 7.7 Albumin 3.5 04/30/17 05:21 NT-Pro-B Natriuret Pep 1750 H Impressions: Chest X-Ray 04/29/17 00:00 IMPRESSION: No significant interval change. No acute findings. Obstructive lung disease. Other findings as noted above Assessment & Plan - Time Time Spent with patient: 15-24 minutes Medications reviewed and adjusted accordingly: Yes Anticipated discharge: Home Within: within 24 hours - Inpatient Certification Based on my medical assessment, after consideration of the patient's comorbidities, presenting symptoms, or acuity I expect that the services needed warrant INPATIENT care.: Yes Medical Necessity: Need For Continuous Telemetry Monitoring - Plan Summary Plan Summary: Acute hypoxemic respiratory failure-this is multifactorial secondary to COPD and diastolic dysfunction with acute exacerbation. His oxygenation seems to have improved. I think we should wean him off again and see if he can be discharged without oxygen. 2. COPD exacerbation currently on bronchodilators as well as nebulizer treatment. He is also on oral prednisone. Will wean off oxygen as above. 3. Diastolic CHF exacerbation he is currently on Lasix. 4. Hyponatremia with initial sodium of 118. Sodium is 135 today #5 hypertension we will adjust his medications as needed 6. Hypoglycemia- resolved 7. History of alcohol abuse-there has been no evidence of withdrawal. Will continue to monitor patient has been advised on the need to abstain from alcohol 8. Hyperkalemia resolved next 9. Seasonal allergies continue Flonase and Claritin We will ambulate patient, taper steroids, and hopefully he is stable he can be discharged home am
[2017-04-30] MEDS: LORATADINE 10 MG TABLET PO SCH (21:29)
[2017-05-01] MEDS: IPRATROPIUM/ALBUTEROL 0.5-2.5 MG/3 ML AMPUL NEB SCH ×3 (01:50→13:37)
[2017-05-01 05:37] LABS: HEMATOCRIT 30.8 % (37.9-51.0); HEMOGLOBIN 10.2 g/dL (13.5-17.0); MEAN CORPUSCULAR HEMOGLOBIN 30.7 pg (27.0-33.4); MEAN CORPUSCULAR HGB CONC 33.1 g/dL (32.0-36.0); MEAN CORPUSCULAR VOLUME 93 fl (80-97); PLATELET COUNT 330 10^3/uL (150-450); RED BLOOD COUNT 3.33 10^6/uL (4.35-5.55); RED CELL DISTRIBUTION WIDTH 14.3 % (11.5-14.0)
[2017-05-01] MEDS: HEPARIN SOD (PORCINE) 5,000 UNIT/ML 1 ML SYRINGE SUBCUT SCH ×2 (06:34→13:30)
[2017-05-01] MEDS: OXYCODONE-ACETAMINOPHEN 5-325 MG TABLET PO PRN (06:35)
[2017-05-01] MEDS: CARVEDILOL 12.5 MG TABLET PO SCH (09:14)
[2017-05-01] MEDS: DOCUSATE SODIUM 100 MG CAPSULE PO SCH (09:15)
[2017-05-01] MEDS: TAMSULOSIN HCL 0.4 MG CAP.SR.24H PO SCH (09:15)
[2017-05-01] MEDS: GUAIFENESIN 600 MG TABLET.SA PO SCH (09:15)
[2017-05-01] MEDS: FAMOTIDINE 20 MG TABLET PO SCH (09:17)
[2017-05-01] MEDS: FOLIC ACID 1 MG TABLET PO SCH (09:17)
[2017-05-01] MEDS: MAGNESIUM OXIDE 400 MG TABLET PO SCH (09:17)
[2017-05-01] MEDS: NICOTINE 14 MG/24 HR PATCH.TD24 TOP SCH (09:18)
[2017-05-01] MEDS: FUROSEMIDE INJ/PF 20 MG/2 ML SDV IV SCH (09:18)
[2017-05-01] MEDS: FLUTICASONE NASAL SPRAY 50 MCG/SPRY 120 SPRAY/16 GM NASL SCH (09:19)
[2017-05-01] MEDS: DIAZEPAM 2 MG TABLET PO PRN (09:21)
[2017-05-01] MEDS ORDERED: PREDNISONE 20 MG TABLET PO SCH (10:00)
--- NOTE | 2017-05-01 10:45 | PDOC DISCHARGE SUMMARY ---
General - Admit/Disc Date/PCP Admission Date/Primary Care Provider: 04/29/17 11:06 Discharge Date: 05/01/17 - Discharge Diagnosis (1) COPD exacerbation Is this a current diagnosis for this admission?: Yes Summary: Continue Flonase, albuterol and Atrovent avoid tobacco (2) Hyponatremia Is this a current diagnosis for this admission?: Yes Summary: Avoid alcohol, limit fluid intake to 1.5 L per day (3) Alcohol abuse Is this a current diagnosis for this admission?: Yes Summary: Avoid alcohol consider outpatient rehab. - Additional Information Resuscitation Status: Full Code Discharge Diet: Cardiac Discharge Activity: Activity As Tolerated, Balance Activity w/Rest, Weigh Daily Prescriptions: Albuterol Sulfate [Proair HFA Inhalation Aerosol 8.5 gm MDI] 2 puff IH Q4HP PRN #1 hfa.aer.ad PRN Reason: Shortness Of Breath Carvedilol [Coreg 12.5 mg Tablet] 12.5 mg PO Q12 #60 tablet Fluticasone Propionate [Flonase Nasal [place] 50 Mcg/[place] 16 gm] 2 spray NASL DAILY #1 spray.pump Fluticasone/Salmeterol [Advair 250-50 Diskus 14 Dose/Diskus] 1 puff IH Q12 #1 inhaler Guaifenesin [Mucinex Sr 600 mg Tablet.sa] 600 mg PO Q12 #30 tablet.sa Ipratropium/Albuterol Sulfate [Duoneb 3 ml Ampul] 3 ml NEB RTQ6HP PRN #120 vial.neb PRN Reason: Nebulizer [Nebulizer Machine] 1 each MC ASDIR PRN #1 kit PRN Reason: Prednisone [Deltasone 20 mg Tablet] 60 mg PO DAILY #12 tablet Home Medications: Aspirin [Aspirin 325 mg Tablet] 325 mg PO DAILY 04/27/17 Famotidine [Pepcid 20 mg Tablet] 20 mg PO Q12 04/27/17 Folic Acid [Folvite 1 mg Tablet] 1 mg PO DAILY 04/27/17 Lorazepam [Ativan 0.5 mg Tablet] 0.5 mg PO QHS 04/27/17 Magnesium Oxide [Mag-Ox 400 mg Tablet] 400 mg PO Q12 04/27/17 Ondansetron HCl [Zofran 4 mg Tablet] 4 mg PO Q4HP PRN 04/27/17 Tamsulosin HCl [Flomax 0.4 mg Cap.sr] 0.4 mg PO DAILY 04/27/17 Thiamine HCl [Vitamin B-1] 50 mg PO DAILY 04/27/17 Acetaminophen [Tylenol 325 mg Tablet] 650 mg PO Q4HP PRN tablet 04/29/17 Albuterol Sulfate [Proair HFA Inhalation Aerosol 8.5 gm MDI] 2 puff IH Q4HP PRN #1 hfa.aer.ad 04/29/17 Carvedilol [Coreg 12.5 mg Tablet] 12.5 mg PO Q12 #60 tablet 04/29/17 Fluticasone Propionate [Flonase Nasal [place] 50 Mcg/[place] 16 gm] 2 spray NASL DAILY #1 spray.pump 04/29/17 Fluticasone/Salmeterol [Advair 250-50 Diskus 14 Dose/Diskus] 1 puff IH Q12 #1 inhaler 04/29/17 Guaifenesin [Mucinex Sr 600 mg Tablet.sa] 600 mg PO Q12 #30 tablet.sa 04/29/17 Ipratropium/Albuterol Sulfate [Duoneb 3 ml Ampul] 3 ml NEB RTQ6HP PRN #120 vial.neb 04/29/17 Nebulizer [Nebulizer Machine] 1 each MC ASDIR PRN #1 kit 04/29/17 Prednisone [Deltasone 20 mg Tablet] 60 mg PO DAILY #12 tablet 04/29/17 History of Present Illness History of Present Illness: YAMILET MEDINA is a 66 year old male Hospital Course Hospital Course: Patient admitted with COPD exacerbation comp gated by alcoholism and hyponatremia. Patient was admitted to a telemetry floor receiving thiamine and folate, albuterol and Atrovent, empiric antibiotics and fluid restriction. Patient has greatly improved over 36 hours awake, alert and talkative reading the newspaper. Patient admits he is ready to return home but needs refills of his medications. Physical Exam Vital Signs: Temp Pulse Resp BP Pulse Ox 97.8 F 70 18 158/86 H 98 05/01/17 07:54 05/01/17 07:54 05/01/17 07:54 05/01/17 07:54 05/01/17 07:54 Intake & Output 04/29/17 04/30/17 05/01/17 11:59 11:59 11:59 Intake Total 1419 452 Balance 1419 452 Weight 75.7 kg 73.9 kg General appearance: PRESENT: no acute distress, well-developed, well-nourished Head exam: PRESENT: atraumatic, normocephalic Eye exam: PRESENT: conjunctiva pink, EOMI, PERRLA. ABSENT: scleral icterus Ear exam: PRESENT: normal external ear exam Mouth exam: PRESENT: moist, tongue midline Neck exam: ABSENT: carotid bruit, JVD, lymphadenopathy, thyromegaly Respiratory exam: PRESENT: clear to auscultation temo. ABSENT: rales, rhonchi, wheezes Cardiovascular exam: PRESENT: RRR. ABSENT: diastolic murmur, rubs, systolic murmur Pulses: PRESENT: normal dorsalis pedis pul Vascular exam: PRESENT: normal capillary refill GI/Abdominal exam: PRESENT: normal bowel sounds, soft. ABSENT: distended, guarding, mass, organolmegaly, rebound, tenderness Rectal exam: PRESENT: deferred Extremities exam: PRESENT: full ROM. ABSENT: calf tenderness, clubbing, pedal edema Neurological exam: PRESENT: alert, awake, oriented to person, oriented to place , oriented to time, oriented to situation, CN II-XII grossly intact. ABSENT: motor sensory deficit Psychiatric exam: PRESENT: appropriate affect, normal mood. ABSENT: homicidal ideation, suicidal ideation Skin exam: PRESENT: dry, intact, warm. ABSENT: cyanosis, rash Results Laboratory Results: 05/01/17 04:06 04/30/17 05:21 05/01/17 04:06 WBC 11.0 H RBC 3.33 L Hgb 10.2 L Hct 30.8 L MCV 93 MCH 30.7 MCHC 33.1 RDW 14.3 H Plt Count 330 04/30/17 05:21 NT-Pro-B Natriuret Pep 1750 H Impressions: Chest X-Ray 04/29/17 00:00 IMPRESSION: No significant interval change. No acute findings. Obstructive lung disease. Other findings as noted above Qualifiers - * [place] BEING DISCHARGED WITH ANY OF THE FOLLOWING DIAGNOSIS?: No Plan Discharge Plan: Follow-up with primary care provider in 1-2 weeks, avoid alcohol and tobacco, limit fluid intake to 1.5 L per day, activity as tolerated cardiac diet Time Spent: Less than 30 Minutes
[2017-05-01 12:50] VITALS: BP 153/81
== END 2017-05-01 17:11 | disposition home or self-care (01) | DRG 191 ==
LOC: ER 12:51 → INTOOBSV 15:29 → EH 15:29 → 4N 21:05 → OBSVTOIN 04-29 11:06
PROVIDERS: ADMIT Family Medicine; ATTEND Family Medicine
PROC: 3E0F73Z Introduction of Anti-inflammatory into Respiratory Tract, Via Natural or Artificial Opening (ICD-10-PCS; principal; 2017-04-27)
DX: J44.1 Chronic obstructive pulmonary disease with (acute) exacerbation (principal); E87.1 Hypo-osmolality and hyponatremia; I69.954 Hemiplegia and hemiparesis following unspecified cerebrovascular disease affecting left non-dominant side; I50.30 Unspecified diastolic (congestive) heart failure; I11.0 Hypertensive heart disease with heart failure; F10.20 Alcohol dependence, uncomplicated; H26.9 Unspecified cataract; K21.9 Gastro-esophageal reflux disease without esophagitis; M19.90 Unspecified osteoarthritis, unspecified site; L40.9 Psoriasis, unspecified; F32.9 Major depressive disorder, single episode, unspecified; D64.9 Anemia, unspecified; E16.2 Hypoglycemia, unspecified; E87.5 Hyperkalemia; J30.1 Allergic rhinitis due to pollen; E66.3 Overweight; Z68.27 Body mass index [BMI] 27.0-27.9, adult; Z79.899 Other long term (current) drug therapy; Z85.038 Personal history of other malignant neoplasm of large intestine; Z87.891 Personal history of nicotine dependence; Z79.82 Long term (current) use of aspirin; Z82.61 Family history of arthritis; Z83.3 Family history of diabetes mellitus; Z80.9 Family history of malignant neoplasm, unspecified
CPT/HCPCS: 36415; 71045; 80048; 80053; 82962; 83036; 83605; 83735; 83880; 84100; 84484; 85025; 85027; 87040; 93005; 93010; 93306; 94640; 94799; 96374; 96375; 99285; G0378; J0696; J1644; J1940; J2405; J3490; J7030; J7512; J7620